=== PATIENT | male | born 1945 | race Caucasian/White ===

== ENCOUNTER 2017-09-07 06:06 | Day surgery (SDC) | payer MEDICARE ==
[2017-08-31 15:59] VITALS: BMI 29.3
[2017-09-07] MEDS ORDERED: ASPIRIN 325 MG TAB PO STA (06:15)
[2017-09-07] MEDS ORDERED: ATORVASTATIN 80 MG TAB PO STA (06:15)
[2017-09-07] MEDS ORDERED: ALPRAZolam 0.5 MG TAB PO PRN (06:15)
[2017-09-07] MEDS ORDERED: SODIUM CHLORIDE 0.9% 1,000 ML in EMPTY BAG 1 BAG IV ONE (06:15)
[2017-09-07] MEDS ORDERED: ALPRAZolam 0.25 MG TAB PO PRN (06:15)
[2017-09-07] MEDS ORDERED: NITROGLYCERIN SL TABS 0.4 MG TAB SUBLINGUAL PRN (06:15)
[2017-09-07 06:40] VITALS: TEMP 97.7
[2017-09-07] MEDS ORDERED: INSULIN LISPRO (humaLOG) 300 UNIT/3 ML VIAL SQ STA (06:50)
[2017-09-07 06:54] LABS: Glucose,Whole Blood 260 mg/dL (75-99)
[2017-09-07] MEDS ORDERED: diphenhydrAMINE 50 MG/ML 1 ML VIAL IVP ONE (07:18)
[2017-09-07] MEDS ORDERED: MIDAZOLAM 2 MG/2 ML VIAL IVP ONE (07:18)
[2017-09-07] MEDS ORDERED: LIDOCAINE 2% INJ 20 MG/ML SQ ONE (07:22)
[2017-09-07] MEDS: VERAPAMIL SYRINGE (5 MG/10 ML) INTRAARTER ONE ×3 (07:24→08:32)
[2017-09-07] MEDS ORDERED: HEPARIN SODIUM 1,000 UN/ML (10ML VL) IV ONE (07:25)
[2017-09-07] MEDS ORDERED: BIVALIRUDIN BOLUS 250 MG/50 ML IV ONE (07:53)
[2017-09-07] MEDS ORDERED: BIVALIRUDIN 250 MG in SODIUM CHLORIDE 0.9% 50 ML IV ONE (07:54)
[2017-09-07] MEDS ORDERED: IOHEXOL 350 MG/ML (PER ML) 100ML BTL INJ ONE (08:38)
[2017-09-07 10:46] VITALS: RESP 18
[2017-09-07] MEDS ORDERED: ACETAMINOPHEN TAB 325 MG TAB ONE (12:22)
[2017-09-07 15:09] VITALS: BP 141/75; PULSE 69
--- NOTE | 2017-09-07 21:55 | CC ---
CARDIAC CATHETERIZATION REPORT DATE OF SERVICE: 09/07/17. PROCEDURE: Left heart catheterization and coronary angiography. PERFORMED BY: Dr. Mandy Lyles. SEDATION: Moderate conscious sedation time 45 minutes. CLINICAL INFORMATION: Mr. Jimmy Young is a 71-year-old gentleman with a known history of paroxysmal atrial fibrillation. Tachy-palmira phenomena who has an underlying dual-chamber pacemaker. He has been having symptoms of angina and was seen by Dr. Montgomery. He also has underlying hypertension, hyperlipidemia, and type 2 diabetes mellitus. Because of his symptoms suggestive of angina, he was advised coronary angiography to look for progression of coronary disease. Stress test findings were somewhat equivocal, but the patient had symptoms suggestive of angina pectoris. PROCEDURE NOTE: Under local anesthesia and strict aseptic precautions, a 6-Malian introducer was placed in the right radial artery. 2500 units of heparin was given intravenously. Using an Ultimata 1 catheter I performed selective coronary angiography of the left system. I then used a JR4 3.5 catheter with this I performed selective coronary angiography of the RCA, but I had very difficult time seating the catheter in the right coronary artery. An LV pressures were also obtained, but I did not perform an LV-gram. CARDIAC CATHETERIZATION FINDINGS: Left end-diastolic pressure was 18-20 mmHg without any gradient across the aortic valve. CORONARY ANGIOGRAPHY FINDINGS: Right coronary artery: Technically dominant vessel has about 30% proximal narrowing. In the midportion after an acute marginal branch, there is an eccentric 80% narrowing after which the caliber improves in the vessel. Distally it bifurcates into PDA and PLV. The RCA therefore has a 70-80% lesion in the distal portion well before the bifurcation. This is a dominant RCA. Left main coronary artery: This is a long patent disease-free vessel that bifurcates into LAD and circumflex. Left main itself is free of significant disease. Left anterior descending coronary artery is a fair caliber vessel extends along the antral wall. It appears that there is a stented segment in the mid LAD. This was done more than 20 years ago. The diagonal branch is free of significant disease. The stented area is patent with no more than 35% narrowing. Distal portion of the LAD beyond the stented segment has diffuse disease throughout all the way to the apex and there is a subtotal area of narrowing in the distal apical portion of the LAD. Left posterior circumflex coronary artery: Technically nondominant vessel which is tortuous, comes off at a more than 90 degree angle from the left main and gives off a large obtuse marginal and then runs in the AV groove giving smaller post lateral branches. The obtuse marginal has an eccentric 80% narrowing and the circumflex marginal itself before the 90% stenosis has another 40% narrowing. The continuation of circumflex in the AV groove is free of significant disease. FINAL IMPRESSION: This patient has 70 to 80% distal RCA disease well before bifurcation and also 80% stenosis involving obtuse marginal branch of circumflex. LAD has a patent stent in the midportion with diffuse disease in the distal one fourth. Filling pressures are mildly elevated. RECOMMENDATIONS: I recommend intervention and attempted to perform this in the same setting. But patient received a substantial amount of contrast and I did not feel I should pursue the procedure. I had very difficult time getting a good guide support and with a JR4 catheter and a KRS catheter I was able to gain decent guide support, but once I advanced the wire, I was unable to keep the guide coaxial. So after some attempts without actually crossing the lesion, I abandoned with the understanding I will bring him back in the next week after checking his renal function and will do the procedure from the femoral approach. The findings of the cardiac cath were discussed in great detail with the patient and and I expect he will be discharged later this evening after adequate hydration. I will see him in the office in 48 hours. RICH / JULES: [id number] /
== END 2017-09-07 17:57 | disposition home or self-care (01) ==
LOC: CATHCVL 06:06
PROVIDERS: ATTEND Internal Medicine Interventional Cardiology
DX: I25.110 Atherosclerotic heart disease of native coronary artery with unstable angina pectoris (principal); I10 Essential (primary) hypertension; Z87.891 Personal history of nicotine dependence; I77.1 Stricture of artery; Z53.8 Procedure and treatment not carried out for other reasons; I35.1 Nonrheumatic aortic (valve) insufficiency; I49.5 Sick sinus syndrome; I48.0 Paroxysmal atrial fibrillation; Z79.01 Long term (current) use of anticoagulants; Z95.0 Presence of cardiac pacemaker; Z95.5 Presence of coronary angioplasty implant and graft; E78.5 Hyperlipidemia, unspecified; E11.9 Type 2 diabetes mellitus without complications; Z79.84 Long term (current) use of oral hypoglycemic drugs; Z79.899 Other long term (current) drug therapy
CPT/HCPCS: 93458; 92920; C1769; C1887 ×5; C1894; J2001; J2250; J1200; Q9967; J1644; J0583

== ENCOUNTER 2017-09-15 07:54 | Day surgery (SDC) | payer MEDICARE ==
[2017-09-14 09:51] VITALS: BMI 28.9
[2017-09-15] MEDS ORDERED: INSULIN ASPART 100 UNIT/ML 1 ML 10 ML VIAL SQ ONE (08:36)
[2017-09-15 08:43] LABS: Glucose,Whole Blood 317 mg/dL (75-99)
[2017-09-15] MEDS ORDERED: ASPIRIN 325 MG TAB PO STA (08:44)
[2017-09-15] MEDS ORDERED: SODIUM CHLORIDE 0.9% 1,000 ML in EMPTY BAG 1 BAG IV ONE (08:44)
[2017-09-15] MEDS ORDERED: NITROGLYCERIN SL TABS 0.4 MG TAB SUBLINGUAL PRN ×2 (08:44→11:19)
[2017-09-15 08:57] LABS: Basophils # (A) 0.1 k/uL (0-0.2); Basophils % (A) 1 %; CH 31.3; CHCM 34.8; Eosinophils # (A) 0.3 k/uL (0-0.7); Eosinophils % (A) 3 %; HCT 41.2 % (39.0-53.0); HDW 2.66; HGB 13.8 gm/dL (13.0-17.5); Luc # (Auto) 0.14; Luc % (Auto) 1; Lymphocytes # (A) 2.4 k/uL (1.0-4.8); Lymphocytes % (A) 24 %; MCH 30.3 pg (25.0-35.0); MCHC 33.6 g/dL (31.0-37.0); MCV 90.2 fL (80.0-100.0); Mean Platelet Volume 7.7; Monocytes # (A) 0.6 k/uL (0-1.0); Monocytes % (A) 6 %; Neutrophils # (A) 6.4 k/uL (1.3-7.7); Neutrophils % (A) 65 %; RBC 4.56 m/uL (4.30-5.90); RDW 13.8 % (11.5-15.5); WBC 9.9 k/uL (3.8-10.6); WBC (Perox) 9.76
[2017-09-15 08:59] LABS: Anion Gap 13 mmol/L; Blood Urea Nitrogen 17 mg/dL (9-20); Calcium 9.6 mg/dL (8.4-10.2); Carbon Dioxide 23 mmol/L (22-30); Chloride 103 mmol/L (98-107); Glucose 315 mg/dL (74-99); Non-African American GFR(MDRD) >60 (>60 ml/min/1.73 sqM); Potassium 4.6 mmol/L (3.5-5.1); Sodium 139 mmol/L (137-145)
[2017-09-15] MEDS ORDERED: MIDAZOLAM 2 MG/2 ML VIAL ONE (09:13)
[2017-09-15] MEDS ORDERED: diphenhydrAMINE 50 MG/ML 1 ML VIAL ONE (09:14)
[2017-09-15] MEDS ORDERED: LIDOCAINE 2% INJ 20 MG/ML (20 ML MDV) ONE (09:21)
[2017-09-15] MEDS ORDERED: diphenhydrAMINE 50 MG/ML 1 ML VIAL IVP ONE (09:34)
[2017-09-15] MEDS ORDERED: MIDAZOLAM 2 MG/2 ML VIAL IV ONE (09:34)
[2017-09-15] MEDS ORDERED: LIDOCAINE 2% INJ 20 MG/ML SQ ONE ×2 (09:34→09:35)
[2017-09-15] MEDS ORDERED: BIVALIRUDIN BOLUS 250 MG/50 ML IV ONE (09:56)
[2017-09-15] MEDS ORDERED: BIVALIRUDIN 250 MG in SODIUM CHLORIDE 0.9% 50 ML IV ONE (09:59)
[2017-09-15] MEDS ORDERED: NITROGLYCERIN 1000MCG/10ML SYRINGE INTRACORON ONE ×2 (10:13→10:15)
[2017-09-15] MEDS ORDERED: HYDROmorphone 2 MG/ML 1 ML SYRINGE ONE (10:44)
[2017-09-15] MEDS ORDERED: IOHEXOL 350 MG/ML 125ML BOTTLE INJ ONE (10:46)
[2017-09-15] MEDS ORDERED: HYDROmorphone 2 MG/ML 1 ML SYRINGE IV ONE (10:46)
[2017-09-15] MEDS ORDERED: CLOPIDOGREL 75 MG TAB ONE (10:51)
[2017-09-15] MEDS ORDERED: CLOPIDOGREL 75 MG TAB PO ONE (10:54)
[2017-09-15] MEDS ORDERED: RX INFO: IV CONTRAST WAS GIVEN 1 EACH MISC MISCELLANE PRN (11:19)
[2017-09-15] MEDS ORDERED: ZOLPIDEM 5 MG TAB PO PRN (11:19)
[2017-09-15] MEDS ORDERED: ATROPINE SULFATE 0.1 MG/ML 10ML SYRINGE IV PRN (11:19)
[2017-09-15] MEDS ORDERED: MAG HYDROX/AL HYDROX/SIMETH 30 ML CUP PO PRN (11:19)
--- NOTE | 2017-09-15 11:36 | PTCA ---
PERCUTANEOUSTRANS CORORONARY ANGIOGRAPHY DATE OF SERVICE: 09/15/2017. PROCEDURE: 1. PTCA and stenting off mid/distal RCA, heavily calcified lesion with a drug-eluting stent. 2. Moderate conscious sedation time of 76 minutes with intravenous Versed and Benadryl combination. Patient was monitored closely. CLINICAL INFORMATION: Mr. Jimmy Young is a 71-year-old gentleman with a known history of paroxysmal atrial fibrillation, sick sinus syndrome with a permanent pacemaker, who also has history of prior stenting of LAD performed several years ago. He sees Dr. Montgomery in the outpatient setting. Because of ongoing episodes of exertional chest pressure and shortness of breath, he was advised cardiac catheterization, which I performed last week and noted that he had an ectopic right coming from a very posterior location. There was a tight lesion in the mid-size distal RCA of about 80% to 90% heavily calcified. There was also a very tortuous circumflex coming off at 90 degree angle and this circumflex was a codominant vessel with obtuse marginal having also 80% to 90% lesion. I could not get a good guide support from the right radial approach and therefore, I advised patient to come back electively for a RCA PCI and if this went well, I would consider circumflex as well. Risks, benefits, options and rationale were discussed with the patient and family. I specifically spoke to his at length. PROCEDURE NOTE: Under local anesthesia and strict aseptic precautions, a 6-Danish introducer was placed in the right femoral artery. Initially, I tried a right Vickie catheter, then a AL1 catheter. Both of these very inadequate in giving me a decent guide support. Eventually with the AR 1 catheter, I got a fairly decent guide support. I used a run- through wire to cross the lesion. Wire was kept distally. A 2.25 caliber 12 mm long NC trek balloon was used to dilate the lesion at 12 to 13 atmospheres. I then deployed a 2.5 caliber 15 mm long Xience stent. There was moderate calcification. I deployed the stent at 12 atmospheres. Patient had did not have any significant chest pain or EKG changes. Excellent angiographic result was achieved without complication. He received Angiomax bolus and infusion as per protocol. He also received 600 mg of Plavix. I then attempted the circumflex PUMPER GAUGER as well. I used a standard left Vickie guide catheter and using a run-through wire and a Choice PT wire, I was able to cross the lesion, but I had difficulty bringing the balloon down because extreme tortuosity and calcification of the origin of the circumflex, which came off at a more than 90 degree angle from the left main. However, I explained to the patient that I will not persist the circumflex intervention and we will work with medical therapy for now and I will consider bringing him back if there is a significant area of ischemia. Therefore, I will pursue medical therapy and we had a good result of RCA. This was discussed with the patient and at length. The sheath was taken out and a Perclose device used to secure hemostasis. Because of some oozing, I am applying a FemoStop. I expect the patient to be discharged tomorrow if he remains stable. Excellent angiographic result of RCA was achieved. Circumflex is a more challenging vessel with tortuosity and heavy calcification. I will tackle this at a later time or pursue medical therapy. MMROGELIO / IJN: [id number] /
[2017-09-15] MEDS: SODIUM CHLORIDE 0.9% 1,000 ML IV SCH (12:05)
[2017-09-15 12:16] LABS: Glucose,Whole Blood 269 mg/dL (75-99)
[2017-09-15 16:47] LABS: Glucose,Whole Blood 263 mg/dL (75-99)
[2017-09-15] MEDS: SOTALOL 80 MG TAB PO SCH (20:44)
[2017-09-15] MEDS: glipiZIDE 10 MG TAB PO SCH (20:44)
[2017-09-15 21:03] LABS: Glucose,Whole Blood 254 mg/dL (75-99)
[2017-09-16] MEDS: SODIUM CHLORIDE 0.9% 1,000 ML IV SCH (02:27)
[2017-09-16 06:18] LABS: Glucose,Whole Blood 248 mg/dL (75-99)
[2017-09-16 06:41] LABS: Basophils % (A) 0 %; CH 31.5; CHCM 35.2; Eosinophils # (A) 0.2 k/uL (0-0.7); Eosinophils % (A) 2 %; HCT 38.6 % (39.0-53.0); HDW 2.89; Luc # (Auto) 0.24; Luc % (Auto) 3; Lymphocytes # (A) 1.8 k/uL (1.0-4.8); Lymphocytes % (A) 22 %; MCH 30.3 pg (25.0-35.0); MCHC 33.7 g/dL (31.0-37.0); MCV 89.9 fL (80.0-100.0); Mean Platelet Volume 6.4; Monocytes # (A) 0.5 k/uL (0-1.0); Monocytes % (A) 6 %; Neutrophils # (A) 5.5 k/uL (1.3-7.7); Neutrophils % (A) 66 %; RBC 4.29 m/uL (4.30-5.90); RDW 12.5 % (11.5-15.5); WBC 8.3 k/uL (3.8-10.6); WBC (Perox) 8.28
[2017-09-16 06:59] LABS: Anion Gap 9 mmol/L; Blood Urea Nitrogen 13 mg/dL (9-20); Calcium 9.1 mg/dL (8.4-10.2); Carbon Dioxide 23 mmol/L (22-30); Chloride 106 mmol/L (98-107); Glucose 248 mg/dL (74-99); Non-African American GFR(MDRD) >60 (>60 ml/min/1.73 sqM); Potassium 4.4 mmol/L (3.5-5.1); Sodium 138 mmol/L (137-145)
[2017-09-16] MEDS: glipiZIDE 10 MG TAB PO SCH (08:33)
[2017-09-16] MEDS: SOTALOL 80 MG TAB PO SCH (08:34)
[2017-09-16] MEDS ORDERED: PRAVASTATIN SODIUM 80 MG TAB PO SCH (09:00)
[2017-09-16] MEDS ORDERED: LOSARTAN 50 MG TAB PO SCH (09:00)
[2017-09-16] MEDS ORDERED: ASPIRIN 81 MG PO SCH (09:00)
[2017-09-16 09:20] VITALS: RESP 16
[2017-09-16 11:33] VITALS: BP 127/71; PULSE 60; TEMP 98
[2017-09-16] MEDS ORDERED: CLOPIDOGREL 75 MG TAB PO SCH (12:00)
[2017-09-16 12:10] LABS: Glucose,Whole Blood 265 mg/dL (75-99)
--- NOTE | 2017-09-16 21:10 | CONS ---
CONSULTATION Mr. Young underwent stenting of the mid distal RCA with a good result. I had noted that there was a plaque in the proximal circumflex which comes off at an acute angle and the OM has a tight lesion for which I am recommending medical therapy. He is doing well, asymptomatic. His right groin is clean and dry. Vital signs are stable. His labs are good. EKG is unremarkable. S1-S2 heard normally. Short systolic murmur noted. LUNGS: Clear. ABDOMEN, LOWER EXTREMITIES: Unchanged. Patient remains in sinus rhythm. PLAN: Increase activity and discharge him today. Discharge instructions regarding activity, diet, medications were given. He will see Dr. Montgomery in about a week or so and in 6 weeks, I would recommend we perform a stress Cardiolite scan and based on that, will consider revascularization of circumflex, which will be a challenging procedure, given the tortuosity and calcification. I discussed this with the patient and in detail. He will be discharged today. MMODL / IJN: [id number] /
== END 2017-09-16 15:01 | disposition home or self-care (01) ==
LOC: CATHCVL 07:54 → 6SEL 10:54 → CATHCVL 09-16 15:01
PROVIDERS: ATTEND Internal Medicine Interventional Cardiology
DX: I25.118 Atherosclerotic heart disease of native coronary artery with other forms of angina pectoris (principal); I25.84 Coronary atherosclerosis due to calcified coronary lesion; I10 Essential (primary) hypertension; Z87.891 Personal history of nicotine dependence; I77.1 Stricture of artery; I35.1 Nonrheumatic aortic (valve) insufficiency; I49.5 Sick sinus syndrome; Z95.5 Presence of coronary angioplasty implant and graft; E11.9 Type 2 diabetes mellitus without complications; Z79.84 Long term (current) use of oral hypoglycemic drugs; Z79.899 Other long term (current) drug therapy; Z79.01 Long term (current) use of anticoagulants
CPT/HCPCS: 80048 ×2; 85025 ×2; C9600; C1769 ×4; C1887 ×2; C1725 ×2; C1894; C1874; C1760; J2001; J2250; J1170; J1200; J0583; Q9967

== ENCOUNTER 2019-03-02 07:42 | Day surgery (SDC) | payer MEDICARE ==
[2019-02-27 15:06] VITALS: BMI 31.1
[~2019-03-02 07:42] MED LIST: SODIUM CHLORIDE 0.9% 1,000 ML IV SCH
[2019-03-02 08:58] VITALS: RESP 16; TEMP 97.5
[2019-03-02 09:09] LABS: Glucose,Whole Blood 139 mg/dL (75-99)
[2019-03-02 10:31] VITALS: BP 143/75; PULSE 72
--- NOTE | 2019-03-06 11:30 | P.PCN ---
Preoperative Diagnosis: Diagnosis Dizziness fatigues Twelve-lead ECG Atrial paced rhythm narrow QRS normal ST segments Tilt table test per protocol Baseline blood pressure 144/74 mmHg Baseline heart rate 59 beats a minute There was a slow gradual decline in his blood pressure. The lowest blood pressure recorded was 114/72 mmHg. When he is laid supine his blood pressure increased 230/72 mmHg Heart rates remained unchanged Impression Orthostatic hypotension syndrome This could be the cause of his ambulatory fatigue tiredness and dizziness Plan Reduce sotalol to 40 mg twice daily and perhaps discontinued completely in the future Stop Aldactone Avoid Imdur
== END 2019-03-02 11:06 | disposition home or self-care (01) ==
LOC: CATHEP 07:42
PROVIDERS: ATTEND Internal Medicine Clinical Cardiac Electrophysiology
DX: I95.1 Orthostatic hypotension (principal); E78.5 Hyperlipidemia, unspecified; I10 Essential (primary) hypertension; E11.9 Type 2 diabetes mellitus without complications; I48.0 Paroxysmal atrial fibrillation; I25.10 Atherosclerotic heart disease of native coronary artery without angina pectoris; Z72.0 Tobacco use; Z79.899 Other long term (current) drug therapy; Z95.0 Presence of cardiac pacemaker; Z79.01 Long term (current) use of anticoagulants; Z79.84 Long term (current) use of oral hypoglycemic drugs; Z79.02 Long term (current) use of antithrombotics/antiplatelets; Z95.5 Presence of coronary angioplasty implant and graft
CPT/HCPCS: 93660

== ENCOUNTER 2021-06-13 08:05 | Day surgery (SDC) | payer MEDICARE ==
[2021-06-12 08:49] VITALS: BMI 29.6
[2021-06-13] MEDS ORDERED: SODIUM CHLORIDE 0.9% 500 ML 500 ML IV ONE (08:20)
[2021-06-13 08:36] LABS: Glucose,Whole Blood 156 mg/dL (75-99)
[2021-06-13 08:43] VITALS: RESP 16; TEMP 98
[2021-06-13] MEDS ORDERED: fentaNYL (PF) 50 MCG/ML 2 ML AMP ONE (08:50)
[2021-06-13] MEDS: BENZOCAINE SPRAY 1 CAN MUCOUS MEM ONE ×2 (09:03→09:09)
[2021-06-13] MEDS ORDERED: fentaNYL (PF) 50 MCG/ML 2 ML AMP IVP ONE (09:14)
[2021-06-13] MEDS ORDERED: MIDAZOLAM 2 MG/2 ML VIAL IVP ONE (09:14)
[2021-06-13 11:08] VITALS: BP 107/66; PULSE 60
--- NOTE | 2021-06-13 21:44 | P.TEE ---
Description of Procedure(s): Procedure performed: Transesophageal Echocardiogram with color flow doppler, pulsed wave doppler and continuous wave doppler, moderate conscious sedation Moderate conscious sedation: Moderate conscious sedation was supplied with direct supervision of myself using Versed and Fentanyl. Complications: none Indications: Moderate aortic insufficiency, moderate to severe aortic stenosis History: Patient is a pleasant 75-year-old male with a history of coronary artery disease status post stenting of the RCA, sick sinus syndrome, status post permanent pacemaker, paroxysmal atrial fibrillation, hypertension, moderate to severe aortic stenosis. Patient has been having issues with increased dyspnea on exertion and decrease in exercise tolerance. He did have most recent echocardiogram 05/23/2021 which showed mild to moderate mitral regurgitation, moderate aortic regurgitation, ejection fraction 55% and concern of at least mo derate aortic stenosis if not more. Patient has been having increasing A. fib burden and given symptoms, the concern was that of his aortic stenosis, aortic regurgitation was more severe and symptomatic. PROCEDURE: After the risks, benefits and alternatives of the above mentioned procedure was explained in detail with the patient, informed consent was obtained. Patient was brought to the lab in a fasting state. Patient was given IV Versed and Fentanyl for sedation. The throat was sprayed with Hurricane to anesthetize the throat. A lubricated Omni probe was then introduced into the esophagus and stomach and multiple views were obtained. 2D echo with color flow doppler, pulsed wave doppler and continuous wave doppler was utilized. Agitated saline bubbles were injected to assess for any intra-atrial shunt. The probe was then removed. Patient tolerated the procedure well. Patient was transferred to the post procedure area in stable and satisfactory condition. FINDINGS: 1. The aortic valve is tricuspid and moderately sclerotic with decreased leaflet excursion. There is moderate aortic stenosis with LUCAS 1.6cm2. There is mild to moderate aortic insufficiency. 2. The mitral valve appears be normal with mild to moderate mitral regurgitation. 3. Tricuspid valve appears to be normal. 4. The interatrial septum is intact. No evidence of PFO. 5. Left atrial appendage is free of clot. 6. Left ventricular size is normal. Left ventricular EF is 50%.
== END 2021-06-13 11:28 | disposition home or self-care (01) ==
LOC: CATHCVL 08:05
PROVIDERS: ATTEND Internal Medicine
DX: I25.10 Atherosclerotic heart disease of native coronary artery without angina pectoris (principal)
CPT/HCPCS: 93312; 93320; 93325; J2250; J3010

== ENCOUNTER 2024-12-25 11:08 | Inpatient (IN) | payer MEDICARE ==
[2024-12-25] MEDS ORDERED: VANCOMYCIN IV PER PHARMACY 1 EACH MISC MISCELLANE PRN (11:37)
[2024-12-25] MEDS: SODIUM CHLORIDE 0.9% 1,000 ML IV STA (11:40)
[2024-12-25] MEDS: LACTATED RINGERS 1,000 ML IV ONE (11:50)
[2024-12-25 12:04] LABS: Basophils % (A) 0 %; Eosinophils % (A) 0 %; HCT 35.9 % (39.0-53.0); HGB 10.9 gm/dL (13.0-17.5); Hypochromasia Slight; Lymphocytes % (A) 7 %; MCHC 30.4 g/dL (31.0-37.0); Mean Platelet Volume 7.6; Monocytes # (A) 0.4 k/uL (0-1.0); Monocytes % (A) 3 %; Neutrophils # (A) 12.7 k/uL (1.3-7.7); Neutrophils % (A) 89 %; Platelet Count 369 k/uL (150-450); RBC 4.03 m/uL (4.30-5.90); RDW 15.8 % (11.5-15.5); WBC 14.2 k/uL (3.8-10.6)
[2024-12-25 12:12] LABS: INR 1.5 (<1.2); Partial Thromboplastin Time 34.6 sec (22.0-30.0); Prothrombin Time 15.2 sec (10.0-12.5)
[2024-12-25] MEDS: IPRATROPIUM-ALBUTEROL 3 ML NEB INHALATION STA (12:18)
[2024-12-25 12:21] LABS: ALT 12 U/L (4-49); AST 21 U/L (17-59); African American GFR (CKD) 45 (>60 ml/min/1.73 sqM); Albumin 3.1 g/dL (3.5-5.0); Alkaline Phosphatase 65 U/L (38-126); Anion Gap 20 mmol/L; Blood Urea Nitrogen 68 mg/dL (9-20); Calcium 7.9 mg/dL (8.4-10.2); Carbon Dioxide 17 mmol/L (22-30); Chloride 104 mmol/L (98-107); Glucose 138 mg/dL (74-99); Magnesium 1.5 mg/dL (1.6-2.3); Non-African American GFR(CKD) 39 (>60 ml/min/1.73 sqM); Potassium 3.7 mmol/L (3.5-5.1); Sodium 141 mmol/L (137-145); Total Bilirubin 0.9 mg/dL (0.2-1.3); Total Protein 5.5 g/dL (6.3-8.2)
[2024-12-25 12:28] LABS: NT-Pro-B-Type Natriuretic Pept 4230 pg/mL
[2024-12-25] MEDS: MAGNESIUM SULFATE-D5W PMX 1 GM in DEXTROSE/WATER 1 100ML.BAG IVPB ONE (13:14)
[2024-12-25] MEDS ORDERED: NALOXONE 0.4 MG/ML 1 ML VIAL IV PRN (13:23)
[2024-12-25 14:02] LABS: ABG Base Excess -5.1 mmol/L; ABG HCO3 18 mmol/L (21-25); ABG Oxygen Saturation 91.9 % (94-97); ABG PCO2 29 mmHg (35-45); ABG PH 7.41 (7.35-7.45); ABG PO2 66 mmHg (83-108); ABG TCO2 19 mmol/L (19-24); Allen Test Performed? Yes
--- NOTE | 2024-12-25 14:19 | XR ---
EXAMINATION TYPE: XR chest 1V portable DATE OF EXAM: 12/25/2024 1:42 PM COMPARISON: 04/18/2015 CLINICAL INDICATION: Male, 79 years old with history of dyspnea, TECHNIQUE: XR chest 1V portable view(s) obtained. FINDINGS: The heart size is normal. The pulmonary vasculature is normal. Right pleural effusion is present. Small left pleural effusion may be present. Port is present on the right with the tip in the superior vena cava region. Pacemaker overlies left c hest. IMPRESSION: 1. Bilateral pleural effusions. [facility], , 12/25/2024 2:17 PM
[2024-12-25] MEDS ORDERED: DEXTROSE 50% SYRINGE 50 ML IVP PRN ×2 (14:25)
[2024-12-25] MEDS: ASPIRIN 81 MG PO STA (14:47)
--- NOTE | 2024-12-25 15:42 | ED ---
General Adult HPI - General Chief complaint: Shortness of Breath Stated complaint: SOB Time Seen by Provider: 12/25/24 11:37 Source: patient, EMS, RN notes reviewed, old records reviewed Mode of arrival: EMS - History of Present Illness Initial comments: Patient is an 79-year-old male who presents as a transfer from another facility. Patient was transferred from [facility] for septic pneumonia, NURIA, hypoxic respiratory failure requiring BiPAP. Has a history of atrial fibrillation on Xarelto, diabetes, hypertension, hyperlipidemia. Patient received multiple fluid boluses at the outside facility as well. Had been complaining of worsening cough, congestion, shortness of breath for numerous days. Apparently is also full code. Normally is not on any oxygen. Presents for further evaluation at this time. Patient initiated on broad-spectrum antibiotics prior to transfer, as well as 2 L fluid bolus, presents for further evaluation at this time. States he is feeling improved.Denies orthopnea, paroxysmal nocturnal dyspnea, lower extremity swelling. - Related Data Home Medications Medication Instructions Recorded Confirmed Furosemide [Lasix] 20 mg PO DAILY 02/27/19 12/25/24 Pioglitazone HCl [Actos] 15 mg PO DAILY 02/27/19 12/25/24 Rivaroxaban [Xarelto] 15 mg PO HS 02/27/19 12/25/24 Acetaminophen [Tylenol] 650 mg PO Q4H PRN 12/25/24 12/25/24 Ascorbic Acid [Vitamin C] 500 mg PO DAILY 12/25/24 12/25/24 Atorvastatin [Lipitor] 40 mg PO HS 12/25/24 12/25/24 Escitalopram [Lexapro] 10 mg PO DAILY 12/25/24 12/25/24 Ferrous Sulfate [Feosol] 325 mg PO DAILY 12/25/24 12/25/24 Finasteride [Proscar] 5 mg PO DAILY 12/25/24 12/25/24 Losartan [Cozaar] 25 mg PO DAILY 12/25/24 12/25/24 Methenamine Hippurate [Hiprex] 1 gm PO BID 12/25/24 12/25/24 Muscle Rub External Cream 10-15% 1 applic TOPICAL Q6H PRN 12/25/24 12/25/24 Ranolazine [Ranexa] 500 mg PO BID 12/25/24 12/25/24 Tamsulosin [Flomax] 0.4 mg PO DAILY 12/25/24 12/25/24 bisacodyL [Dulcolax] 10 mg PO DAILY PRN 12/25/24 12/25/24 metFORMIN HCL [Glucophage] 500 mg PO TID 12/25/24 12/25/24 Allergies Allergy/AdvReac Type Severity Reaction Status Date / Time No Known Allergies Allergy Verified 12/25/24 13:18 Review of Systems ROS Statement: Those systems with pertinent positive or pertinent negative responses have been documented in the HPI. Review of Systems: CONST: Denies fever EYES: Denies blurry vision ENT: Denies nasal congestion C/V: Denies Chest pain RESP: Endorses shortness of breath, cough, congestion GI: Denies abdominal pain : Denies dysuria SKIN: Denies rash. MSK: Denies joint pain. NEURO: Denies headache ROS Other: All systems not noted in ROS Statement are negative. Past Medical History Past Medical History: Atrial Fibrillation, Coronary Artery Disease (CAD), Cancer, Diabetes Mellitus, Hyperlipidemia, Hypertension Additional Past Medical History / Comment(s): See Dr Ybarra's H&P. 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 History of Any Multi-Drug Resistant Organisms: None Reported Past Surgical History: Heart Catheterization, Heart Catheterization With Stent, Orthopedic Surgery, Prostate Surgery Additional Past Surgical History / Comment(s): Right shoulder surgery, bilateral cataracts removed, TURP, TREMAINE. Past Anesthesia/Blood Transfusion Reactions: Previous Problems w/ Anesthesia Additional Past Anesthesia/Blood Transfusion Reaction / Comment(s): Difficulty waking up after prostate surgery-"TOOK LONGER TO WAKE UP." Date of Last Stent Placement:: Past Psychological History: No Psychological Hx Reported Smoking Status: Former smoker Past Alcohol Use History: None Reported Past Drug Use History: None Reported - Past Family History Mother Family Medical History: No Reported History Father Family Medical History: Coronary Artery Disease (CAD) General Exam - General Exam Comments Initial Comments: General: Appears in no acute distress. HEAD: Normal with no signs of head trauma. EYES: EOMI ENT: Hearing grossly intact, normal oropharynx. RESPIRATORY: Coarse breath sounds bilaterally. Mildly increased work of breathing. Requiring BiPAP to maintain oxygenation. C/V: Irregular rate and rhythm. S1 and S2 auscultated, no edema, peripheral pulses 2+ and intact throughout ABD: Abd is soft, nontender, nondistended EXT: Normal range of motion, no obvious deformity SKIN: No rashes or lesions observed on exposed skin. NEURO: Alert and oriented x 4. Course Vital Signs 12/25/24 12/25/24 12/25/24 11:08 11:19 12:00 Temperature 97.7 F Pulse Rate 93 103 H Respiratory 27 H 30 H Rate Blood Pressure 116/70 116/71 O2 Sat by Pulse 98 94 L Oximetry Fraction of 60 Inspired Oxygen (FIO2) 12/25/24 12/25/24 12/25/24 12:18 12:32 14:07 Temperature Pulse Rate 112 H 110 H Respiratory Rate Blood Pressure O2 Sat by Pulse Oximetry Fraction of 50 60 Inspired Oxygen (FIO2) 12/25/24 14:30 Temperature Pulse Rate 98 Respiratory 30 H Rate Blood Pressure 111/64 O2 Sat by Pulse 97 Oximetry Fraction of Inspired Oxygen (FIO2) Medical Decision Making - Medical Decision Making Was pt. sent in by a medical professional or institution (, PA, [employer], urgent care, hospital, or chcf...) When possible be specific @ -Transferred from [facility] for admission for hypoxic respiratory failure, secondary to septic pneumonia Did you speak to anyone other than the patient for history (EMS, parent, family, police, friend...)? What history was obtained from this source @ -No Did you review nursing and triage notes (agree or disagree)? Why? @ -I reviewed and agree with nursing and triage notes Were old charts reviewed (outside hosp., previous admission, EMS record, old EKG , old radiological studies, urgent care reports/EKG's, [facility] records)? Report findings @ -[facility], pneumonia with pleural effusions, hypoxic respiratory failure with 80% on room air requiring BiPAP, as well as elevated lactic acid of 5.0. Patient initially on vancomycin and cefepime. Differential Diagnosis (chest pain, altered mental status, abdominal pain women, abdominal pain men, vaginal bleeding, weakness, fever, dyspnea, syncope, headache, dizziness, GI bleed, back pain, seizure, CVA, palpatations, mental health, musculoskeletal)? @ -Differential Dyspnea: Coronary syndrome, arrhythmia, tamponade, asthma, COPD, pulmonary embolism, pneumonia, pneumothorax, pulmonary effusion, anaphylaxis, diabetic ketoacidosis, flailed chest, pulmonary contusion, diaphragmatic rupture, anemia, neuromuscular, this is not meant to be an all-inclusive list. EKG interpreted by me (3pts min.). @ -As above X-rays interpreted by me (1pt min.). @ -Chest x-ray reveals what appears to be possible bilateral pneumonia versus pulm vascular congestion with pleural effusions. Radiology at outside facility read it as bilateral pneumonia with parapneumonic pleural effusion CT interpreted by me (1pt min.). @ -None done U/S interpreted by me (1pt. min.). @ -None done What testing was considered but not performed or refused? (CT, X-rays, U/S, labs)? Why? @ -None What meds were considered but not given or refused? Why? @ -None Did you discuss the management of the patient with other professionals (beata yeboah i.e. , PA, [employer], lab, RT, psych nurse, social media editor, probation counselor, teacher, security officers and guards, outpatient case manager)? Give summary @ -Discussed with ICU attending, Dr. Skinner who accepted the admission. Disc ussed with the admitting provider, Dr. Otto who accepted the admission. Was smoking cessation discussed for >3mins.? @ -No Was critical care preformed (if so, how long)? @ -Yes, 33 minutes Were there social determinants of health that impacted care today? How? (Homelessness, low income, unemployed, alcoholism, drug addiction, transportation, low edu. Level, literacy, decrease access to med. care, [facility], rehab)? @ -No Was there de-escalation of care discussed even if they declined (Discuss DNR or withdrawal of care, Hospice)? DNR status @ -No What co-morbidities impacted this encounter? (DM, HTN, Smoking, COPD, CAD, Cancer, CVA, ARF, Chemo, Hep., AIDS, mental health diagnosis, sleep apnea, morbid obesity)? @ -Atrial fibrillation Was patient admitted / discharged? Hospital course, mention meds given and route, prescriptions, significant lab abnormalities, going to OR and other pertinent info. @ -Patient presents emergency department with hypoxic respiratory failure secondary to septic pneumonia, NURIA, lactic acidosis of 5. Initiated on vancomycin and cefepime and BiPAP at outside hospital. Presents for admission to our hospital. Patient is doing well on BiPAP. Mild increased work of breathing. Stable A-fib. Vitals otherwise within acceptable limits. We will obtain repeat labs, upload the chest x-ray, as well as obtain repeat chest x-ray and ABG per pulmonology. He was in agreement this plan. Seems to be more infectious as patient had more of a cough, congestion presentation and less of a progressive clinical presentation of CHF after discussion with him. Will c ontinue to monitor. Patient initiated on IV fluids, as well as started on broad-spectrum antibiotics that were already initiated. Patient administered a breathing treatment. Patient was in agreement this plan. EKG showed no signs of acute ischemia. Chest x-ray redemonstrates previous findings. Laboratory studies show leukocytosis of 14, a lactic acid improved from 5-3.9, as well as an elevated troponin 0.096. Patient administered aspirin. BNP is elevated to 4200. Patient also has an NURIA with a BUN of 68 and creatinine of 1.64. I discussed results with patient. He will be admitted. Discussed results with ICU attending Dr. Skinner who accepted the patient to ICU. Discussed with Dr. Otto of [facility] who accepted the admission. Pneumonia versus CHF likely causing the hypoxic respiratory failure, however clinically seems to be more pneumonia after discussion with the patient. Undiagnosed new problem with uncertain prognosis? @ -No Drug Therapy requiring intensive monitoring for toxicity (Heparin, Nitro, Insulin, Cardizem)? @ -No Were any procedures done? @ -No Diagnosis/symptom? @ -Hypoxic respiratory failure secondary to pneumonia versus CHF, dehydration with NURIA, elevated troponin, atrial fibrillation Acute, or Chronic, or Acute on Chronic? @ -Acute Uncomplicated (without systemic symptoms) or Complicated (systemic symptoms)? @ -Complicated Side effects of treatment? @ -No Exacerbation, Progression, or Severe Exacerbation? @ -No Poses a threat to life or bodily function? How? (Chest pain, USA, NH, pneumonia, PE, COPD, DKA, ARF, appy, cholecystitis, CVA, Diverticulitis, Homicidal, Suicidal, threat to staff... and all critical care pts) @ -Yes - Lab Data Result diagrams: 12/25/24 11:42 12/25/24 11:42 Lab Results 02/24/25 02/24/25 02/24/25 Range/Units 11:42 11:42 11:42 WBC 14.2 H (3.8-10.6) k/uL RBC 4.03 L (4.30-5.90) m/uL Hgb 10.9 L (13.0-17.5) gm/dL Hct 35.9 L (39.0-53.0) % MCV 89.0 (80.0-100.0) fL MCH 27.0 (25.0-35.0) pg MCHC 30.4 L (31.0-37.0) g/dL RDW 15.8 H (11.5-15.5) % Plt Count 369 (150-450) k/uL MPV 7.6 Neutrophils % 89 % Lymphocytes % 7 % Monocytes % 3 % Eosinophils % 0 % Basophils % 0 % Neutrophils # 12.7 H (1.3-7.7) k/uL Lymphocytes # 1.0 (1.0-4.8) k/uL Monocytes # 0.4 (0-1.0) k/uL Eosinophils # 0.0 (0-0.7) k/uL Basophils # 0.0 (0-0.2) k/uL Hypochromasia Slight PT 15.2 H (10.0-12.5) sec INR 1.5 H (<1.2) APTT 34.6 H (22.0-30.0) sec Sodium 141 (137-145) mmol/L Potassium 3.7 (3.5-5.1) mmol/L Chloride 104 (98-107) mmol/L Carbon Dioxide 17 L (22-30) mmol/L Anion Gap 20 mmol/L BUN 68 H (9-20) mg/dL Creatinine 1.64 H (0.66-1.25) mg/dL Est GFR (CKD-EPI)AfAm 45 (>60 ml/min/1.73 sqM) Est GFR (CKD-EPI)NonAf 39 (>60 ml/min/1.73 sqM) Glucose 138 H (74-99) mg/dL Lactic Ac Sepsis Rflx Plasma Lactic Acid Mumtaz (0.7-2.0) mmol/L Calcium 7.9 L (8.4-10.2) mg/dL Magnesium 1.5 L (1.6-2.3) mg/dL Total Bilirubin 0.9 (0.2-1.3) mg/dL AST 21 (17-59) U/L ALT 12 (4-49) U/L Alkaline Phosphatase 65 (38-126) U/L Troponin I (0.000-0.034) ng/mL NT-Pro-B Natriuret Pep 4230 pg/mL Total Protein 5.5 L (6.3-8.2) g/dL Albumin 3.1 L (3.5-5.0) g/dL 12/25/24 12/25/24 12/25/24 Range/Units 11:42 11:42 12:27 WBC (3.8-10.6) k/uL RBC (4.30-5.90) m/uL Hgb (13.0-17.5) gm/dL Hct (39.0-53.0) % MCV (80.0-100.0) fL MCH (25.0-35.0) pg MCHC (31.0-37.0) g/dL RDW (11.5-15.5) % Plt Count (150-450) k/uL MPV Neutrophils % % Lymphocytes % % Monocytes % % Eosinophils % % Basophils % % Neutrophils # (1.3-7.7) k/uL Lymphocytes # (1.0-4.8) k/uL Monocytes # (0-1.0) k/uL Eosinophils # (0-0.7) k/uL Basophils # (0-0.2) k/uL Hypochromasia PT (10.0-12.5) sec INR (<1.2) APTT (22.0-30.0) sec Sodium (137-145) mmol/L Potassium (3.5-5.1) mmol/L Chloride (98-107) mmol/L Carbon Dioxide (22-30) mmol/L Anion Gap mmol/L BUN (9-20) mg/dL Creatinine (0.66-1.25) mg/dL Est GFR (CKD-EPI)AfAm (>60 ml/min/1.73 sqM) Est GFR (CKD-EPI)NonAf (>60 ml/min/1.73 sqM) Glucose (74-99) mg/dL Lactic Ac Sepsis Rflx Y Plasma Lactic Acid Mumtaz 3.9 H* (0.7-2.0) mmol/L Calcium (8.4-10.2) mg/dL Magnesium (1.6-2.3) mg/dL Total Bilirubin (0.2-1.3) mg/dL AST (17-59) U/L ALT (4-49) U/L Alkaline Phosphatase (38-126) U/L Troponin I 0.096 H* (0.000-0.034) ng/mL NT-Pro-B Natriuret Pep pg/mL Total Protein (6.3-8.2) g/dL Albumin (3.5-5.0) g/dL - EKG Data -: EKG Interpreted by Me EKG Comments: 12-lead Electrocardiogram Interpretation Note EKG was reviewed and interpreted by myself. 12-lead ECG performed at 1120 is interpreted by me as revealing A-fib with mild RVR at a rate of 103 beats per minute. [place] is normal. QRS durations 120 ms, QTc is 449 ms.. There were no ST or T wave abnormalities to suggest myocardial ischemia or injury. R wave progression across the precordium was satisfactory. By my interpretation this EKG is non-diagnostic for acute ischemia. Critical Care Time Critical Care Time: Yes Total Critical Care Time: 33 Disposition Clinical Impression: Hypoxic respiratory failure, Congestive heart failure, Pneumonia, Pleural effusion, NURIA (acute kidney injury), Elevated troponin, BiPAP (biphasic positive airway pressure) dependence Disposition: ADMITTED IP TO THIS [facility] Condition: Serious Time of Disposition: 13:23
[2024-12-25 17:06] LABS: Glucose,Whole Blood 162 mg/dL (70-110)
[2024-12-25] MEDS: INSULIN LISPRO (HumaLOG) 100 UNIT/ML 10 mL VL SQ SCH (17:09)
[2024-12-25] MEDS: FUROSEMIDE 10 MG/ML 2 ML VIAL IV SCH (17:12)
--- NOTE | 2024-12-25 17:14 | US ---
EXAMINATION TYPE: US chest DATE OF EXAM: 12/25/2024 COMPARISON: Chest radiograph 12/25/2024 CLINICAL INDICATION: Male, 79 years old with history of Markings for thoracentesis by pulmonary staff ; SOB, bilat effusions TECHNIQUE: Grayscale imaging of the chest. Targeted ultrasound of the posterior lower bilateral FINDINGS: EXAM MEASUREMENTS: Right Pleural Effusion pocket size: 13.1 cm Right skin surface to fluid distance: 3.2 cm Left Pleural Effusion pocket size: 2.6 cm Right side marked for possible thoracentesis outside the dept. Left side NOT marked Pulmonologists are able to review the images in the patient?s EMR. IMPRESSIONS: 1. Moderate right pleural effusion. 2. Small left pleural effusion. [facility], , 12/25/2024 5:11 PM
--- NOTE | 2024-12-25 17:17 | P.CNPUL ---
History of Present Illness Consult date: 12/25/24 Requesting physician: Shin E Sheet Reason for consult: dyspnea, pleural effusion Chief complaint: Shortness of breath History of present illness: This is an 79year-old white male with history of multiple medical problems including diabetes, coronary artery disease, history of congestive heart f ailure, dyslipidemia, patient was transferred today from [facility] for possible pneumonia and sepsis. Patient presented to the ER with shortness of breath, abnormal chest x-ray showing bilateral pleural effusions patient was noted to have low blood pressure upon his initial evaluation, patient was given fluid boluses at the [facility] facility, and he was transferred here more fluids were given. I saw the patient in the ER, patient is on BiPAP, 10/05, patient is already feeling comfortable, he is hemodynamically stable, and I felt that the patient could be admitted to the cardiac floor instead of sending the patient to the ICU. Patient is already receiving broad-spectrum antibiotics, and again his chest x-ray is more suggestive of pulmonary edema underlying pneumonia is not entirely ruled out. History rm, the patient is a very poor historian, not much could be obtained from the patient himself as he seems to be confused. Looking at the chart patient already received 2 to 3 L of fluid boluses prior to my evaluation. CBC showed leukocytosis with WBC count is 14.2 hemoglobin 10.9 patient had an ABG on 50% FiO2 and BiPAP. pO2 of 66 pCO2 29 pH of 7.41. Ultrasound of the chest showed bilateral pleural effusions may have to consider diagnostic and therapeutic thoracentesis however the patient has been on Xarelto which is presently on hold. Electrolytes showed bicarb of 17 BUN of 68 creatinine 1.64 however no baseline creatinine available on this patient. In 2020, there is a report on the transesophageal echocardiogram showing mostly moderate sclerotic and decreased leaflet excursion of the aortic valve, there was also evidence of mild to moderate mitral regurgitation and his ejection fraction at the time was noted to be 50%. In the cardiology note, there is history of coronary artery disease and previous stenting of RCA history of sick sinus syndrome and permanent. Permanent pacemaker placement, he has paroxysmal atrial fibrillation hypertension and moderate severe aortic stenosis. Review of Systems ROS unobtainable: due to mental status Past Medical History Past Medical History: Atrial Fibrillation, Coronary Artery Disease (CAD), Cancer, Diabetes Mellitus, Hyperlipidemia, Hypertension Additional Past Medical History / Comment(s): See Dr Ybarra's H&P. 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 History of Any Multi-Drug Resistant Organisms: None Reported Past Surgical History: Heart Catheterization, Heart Catheterization With Stent, Orthopedic Surgery, Prostate Surgery Additional Past Surgical History / Comment(s): Right shoulder surgery, bilateral cataracts removed, TURP, TREMAINE. Past Anesthesia/Blood Transfusion Reactions: Previous Problems w/ Anesthesia Additional Past Anesthesia/Blood Transfusion Reaction / Comment(s): Difficulty waking up after prostate surgery-"TOOK LONGER TO WAKE UP." Date of Last Stent Placement:: Past Psychological History: No Psychological Hx Reported Smoking Status: Former smoker Past Alcohol Use History: None Reported Past Drug Use History: None Reported - Past Family History Mother Family Medical History: No Reported History Father Family Medical History: Coronary Artery Disease (CAD) Medications and Allergies Home Medications Medication Instructions Recorded Confirmed Type Furosemide [Lasix] 20 mg PO DAILY 02/27/19 12/25/24 History Pioglitazone HCl [Actos] 15 mg PO DAILY 02/27/19 12/25/24 History Rivaroxaban [Xarelto] 15 mg PO HS 02/27/19 12/25/24 History Acetaminophen [Tylenol] 650 mg PO Q4H PRN 12/25/24 12/25/24 History Ascorbic Acid [Vitamin C] 500 mg PO DAILY 12/25/24 12/25/24 History Atorvastatin [Lipitor] 40 mg PO HS 12/25/24 12/25/24 History Escitalopram [Lexapro] 10 mg PO DAILY 12/25/24 12/25/24 History Ferrous Sulfate [Feosol] 325 mg PO DAILY 12/25/24 12/25/24 History Finasteride [Proscar] 5 mg PO DAILY 12/25/24 12/25/24 History Losartan [Cozaar] 25 mg PO DAILY 12/25/24 12/25/24 History Methenamine Hippurate [Hiprex] 1 gm PO BID 12/25/24 12/25/24 History Muscle Rub External Cream 10-15% 1 applic TOPICAL Q6H PRN 12/25/24 12/25/24 History Ranolazine [Ranexa] 500 mg PO BID 12/25/24 12/25/24 History Tamsulosin [Flomax] 0.4 mg PO DAILY 12/25/24 12/25/24 History bisacodyL [Dulcolax] 10 mg PO DAILY PRN 12/25/24 12/25/24 History metFORMIN HCL [Glucophage] 500 mg PO TID 12/25/24 12/25/24 History Allergies Allergy/AdvReac Type Severity Reaction Status Date / Time No Known Allergies Allergy Verified 12/25/24 13:18 Physical Exam Vitals: Vital Signs Temp Pulse Resp BP Pulse Ox FiO2 12/25/24 16:03 60 12/25/24 15:30 101 H 28 H 110/63 96 12/25/24 14:30 98 30 H 111/64 97 12/25/24 14:07 60 12/25/24 12:32 110 H 12/25/24 12:18 112 H 50 12/25/24 12:00 103 H 30 H 116/71 94 L 12/25/24 11:19 60 12/25/24 11:08 97.7 F 93 27 H 116/70 98 Intake and Output 12/25/24 12/25/24 12/25/24 06:59 14:59 22:59 Other: Weight 81.647 kg General: Revealed 79-year-old HEAD: Normal with no signs of head trauma. EYES: EOMI ENT: Hearing grossly intact, normal oropharynx. RESPIRATORY: Coarse breath sounds bilaterally. Mildly increased work of breathing. Requiring BiPAP to maintain oxygenation. C/V: Irregular rate and rhythm. S1 and S2 auscultated, no edema, peripheral pulses 2+ and intact throughout ABD: Abd is soft, nontender, nondistended EXT: Normal range of motion, no obvious deformity SKIN: No rashes or lesions observed on exposed skin. NEURO: Alert and oriented x 4. Results - Laboratory Findings CBC and BMP: 12/25/24 11:42 12/25/24 11:42 ABG ABG pH 7.41 (7.35-7.45) 12/25/24 13:56 ABG pCO2 29 mmHg (35-45) L 12/25/24 13:56 ABG pO2 66 mmHg (83-108) L 12/25/24 13:56 ABG O2 Saturation 91.9 % (94-97) L 12/25/24 13:56 PT/INR, D-dimer PT 15.2 sec (10.0-12.5) H 12/25/24 11:42 INR 1.5 (<1.2) H 12/25/24 11:42 Abnormal lab findings: Abnormal Labs 12/25/24 12/25/24 12/25/24 11:42 11:42 11:42 WBC 14.2 H RBC 4.03 L Hgb 10.9 L Hct 35.9 L MCHC 30.4 L RDW 15.8 H Neutrophils # 12.7 H PT 15.2 H INR 1.5 H APTT 34.6 H ABG pCO2 ABG pO2 ABG HCO3 ABG O2 Saturation Hemoglobin Carbon Dioxide 17 L BUN 68 H Creatinine 1.64 H Glucose 138 H POC Glucose (mg/dL) Plasma Lactic Acid Mumtaz Calcium 7.9 L Magnesium 1.5 L Troponin I Total Protein 5.5 L Albumin 3.1 L 12/25/24 12/25/24 12/25/24 11:42 11:42 13:56 WBC RBC Hgb Hct MCHC RDW Neutrophils # PT INR APTT ABG pCO2 29 L ABG pO2 66 L ABG HCO3 18 L ABG O2 Saturation 91.9 L Hemoglobin 11.0 L Carbon Dioxide BUN Creatinine Glucose POC Glucose (mg/dL) Plasma Lactic Acid Mumtaz 3.9 H* Calcium Magnesium Troponin I 0.096 H* Total Protein Albumin 12/25/24 12/25/24 14:28 17:04 WBC RBC Hgb Hct MCHC RDW Neutrophils # PT INR APTT ABG pCO2 ABG pO2 ABG HCO3 ABG O2 Saturation Hemoglobin Carbon Dioxide BUN Creatinine Glucose POC Glucose (mg/dL) 162 H Plasma Lactic Acid Mumtaz 2.9 H* Calcium Magnesium Troponin I Total Protein Albumin - Diagnostic Findings Chest x-ray: image reviewed (Bilateral pleural effusions, underlying pneumonia is not entirely ruled out,) Assessment and Plan Assessment: Impression: Acute hypoxic respiratory failure Bilateral pleural effusions, suspect acute congestive heart failure, likely diastolic in nature Possible pneumonia and sepsis, looking at the chest x-ray is more suggestive of congestive heart failure than pneumonia, will likely recommend right-sided thoracentesis/diagnostic and therapeutic at the same time. History of valvular heart disease/ aortic stenosis, and history of mitral regurgitation History of coronary artery disease and previous stent placement History of sick sinus syndrome Chronic atrial fibrillation Recommendation: Continue BiPAP and titrate accordingly Admit patient to cardiac floor/telemetry Cut down on fluids Gentle diuresis Continue antibiotics empirically, check procalcitonin and check BNP level Resume home meds Echocardiogram with Doppler Cardiology to see on consultation Hold Johana as I may proceed with thoracentesis tomorrow Will continue to follow Time with Patient: Greater than 30
--- NOTE | 2024-12-25 17:37 | CA ---
Transthoracic Echo Report Name: Jimmy Young Age: 79 Gender: M : 1945 Exam Date: 12/25/2024 14:54 Exam Location: [facility] Echo Ht (in): 69 Wt (lb): 180 Ordering Physician: hCris Castillo MD Attending/Referring Phys: Analysis Mgr Lilo Alvarado RDCS Procedure CPT: Indications: dyspnea, elevated troponin Cardiac Hx: Pacemaker , htn Technical Quality: Very technically difficult study Contrast 1: Total Dose (mL): Contrast 2: Total Dose (mL): MEASUREMENTS (Male / Female) Normal Values 2D ECHO LV Diastolic Diameter PLAX 3.3 cm 4.2 - 5.9 / 3.9 - 5.3 cm LV Systolic Diameter PLAX 2.7 cm IVS Diastolic Thickness 1.3 cm 0.6 - 1.0 / 0.6 - 0.9 cm LVPW Diastolic Thickness 1.3 cm 0.6 - 1.0 / 0.6 - 0.9 cm LV Relative Wall Thickness 0.8 RV Internal Dim ED PLAX 3.0 cm LVOT Diameter 2.1 cm LA Systolic Diameter LX 3.2 cm 3.0 - 4.0 / 2.7 - 3.8 cm M-MODE Aortic Root Diameter MM 2.4 cm DOPPLER AV Peak Velocity 308.1 cm/s AV Peak Gradient 38.0 mmHg AV Mean Velocity 212.6 cm/s AV Mean Gradient 20.4 mmHg AV Velocity Time Integral 57.3 cm AI Peak Velocity 326.5 cm/s AI Peak Gradient 42.6 mmHg AI Pressure Half Time 543.9 ms MV Area PHT 3.3 cm??? TR Peak Velocity 298.4 cm/s TR Peak Gradient 35.6 mmHg Right Ventricular Systolic Press 45.6 mmHg FINDINGS Left Ventricle Left ventricular ejection fraction is estimated at 45-50 %. Small left ventricular cavity. Mild concentric left ventricular hypertrophy. Right Ventricle Normal right ventricular size. Moderate pulmonary hypertension. Right ventricular systolic pressure estimated at 46 mm hg. Right Atrium Right atrium not well visualized. Left Atrium Normal left atrial size. No left atrial thrombus or mass present. Mitral Valve Mitral valve thickened. Mild mitral regurgitation. Aortic Valve Aortic valve sclerosis. Moderate aortic stenosis with a peak gradient of 38 mmHg and a mean gradient of 20 mmHg. Mild aortic regurgitation. Tricuspid Valve Tricuspid valve not well visualized. Mild tricuspid regurgitation. Pulmonic Valve Pulmonic valve not well visualized. Pericardium No pericardial effusion. Aorta Normal size aortic root and proximal ascending aorta. CONCLUSIONS Technically suboptimal study secondary to poor echo windows Mild LV systolic dysfunction Moderate pulmonary hypertension Moderate aortic stenosis with mild aortic regurgitation Previewed by: Dr. Po Chen MD (Electronically Signed) Final Date: 25 December 2024 17:37
[2024-12-25 19:57] LABS: Glucose,Whole Blood 192 mg/dL (70-110)
[2024-12-25] MEDS: CEFEPIME 2 GM in SODIUM CHLORIDE 0.9% 100 ML IVPB SCH (20:28)
--- NOTE | 2024-12-25 23:09 | P.HPIM ---
History of Present Illness H&P Date: 12/25/24 This is a 79-year-old male who presented to the emergency department as a transfer from [facility] with significant shortness of breath on BiPAP with concerns of CHF exacerbation as well as possible pneumonia. Patient has been started on antibiotics in the form of cefepime and vancomycin. Will obtain procalcitonin. Pulmonary perinatal nurse has been consulted as patient will likely be going to ICU dependent on BiPAP currently. Patient's FiO2 is 50% with a PEEP of 5. Chest x-ray showing bilateral pleural effusions and there is discussion of the possible need for thoracentesis. On admission here, white count is elevated at 14.2, hemoglobin is stable at 10.9, platelets are 369, ABG shows a pH of 7.41, pCO2 is 29, pO2 66, bicarb is 18, sodium 141 with a potassium of 3.7, BUN 68 and creatinine up at 1.64, glucose 138, lactic acid 3.9, magnesium 1.5, troponin 0.096, BNP is 4230. Patient again being admitted to the ICU with pulmonary perinatal nurse as well as cardiology on consult. 2D echo is ordered and pending at this time. REVIEW OF SYSTEMS: Unable to completely assess as patient is lethargic The rest of the 14-point review of systems is negative. Active Medications Albuterol/Ipratropium (Ipratropium-Albuterol 3 Ml Neb) 3 ml INHALATION RT-Q4H PRN PRN Reason: Shortness Of Breath Or Wheezing Dextrose/Water (Dextrose 50% Syringe 50 Ml) 25 ml IVP PER PROTOCOL PRN; Protocol PRN Reason: Hypoglycemia Dextrose/Water (Dextrose 50% Syringe 50 Ml) 50 ml IVP PER PROTOCOL PRN; Protocol PRN Reason: Hypoglycemia Cefepime HCl 2 gm/ Sodium (Chloride) 100 mls @ 25 mls/hr IVPB Q12H BLUE; Protocol Lactated Ringer's (Lactated Ringers) 1,000 mls @ 130 mls/hr IV .[id number] ONE Stop: 12/25/24 19:27 Last Admin: 12/25/24 11:50 Dose: 130 mls/hr Vancomycin HCl 1,500 mg/ (Sodium Chloride) 500 mls @ 167 mls/hr IVPB Q24H BLUE Insulin Human Lispro (Insulin Lispro (Humalog) 100 Unit/Ml 10 Ml Vl) 0 unit SQ ACHS BLUE; Protocol Naloxone HCl (Naloxone 0.4 Mg/Ml 1 Ml Vial) 0.2 mg IV Q2M PRN PRN Reason: Opioid Reversal PHYSICAL EXAMINATION: GENERAL: The patient is alert and oriented x1, lethargic, somewhat arousable although fatigues easily. Currently BiPAP dependent with an FiO2 of 50% and PEEP is 5 well developed, elderly appearing, ill-appearing HEENT: Pupils are round and equally reacting to light. EOMI. No scleral icterus. No conjunctival pallor. Normocephalic, atraumatic. No pharyngeal erythema. No thyromegaly. CARDIOVASCULAR: S1 and S2 muffled PULMONARY: Diminished breath sounds bilaterally with some scattered expiratory wheezing as well as crackles noted at the bases. ABDOMEN: Soft, nontender, nondistended, normoactive bowel sounds. No palpable organomegaly. MUSCULOSKELETAL: No joint swelling or deformity. EXTREMITIES: No cyanosis, clubbing, or pedal edema. NEUROLOGICAL: Gross neurological examination did not reveal any focal deficits. Diffusely weak SKIN: No rashes. Assessment: Shortness of breath, multifactorial with concerns of CHF exacerbation as well as possible pneumonia Leukocytosis with tachycardia and elevated white count, possible sepsis, present on admission secondary to pneumonia Elevated troponin, 0.096, possibly type II secondary to CHF exacerbation as well as possible pneumonia Lactic acidosis secondary to sepsis Elevated kidney functions, acute renal failure Hypomagnesemia History of atrial fibrillation History of coronary artery disease with previous stenting Diabetes mellitus, type II, insulin-dependent Hyperlipidemia Hypertension Former tobacco use GI prophylaxis DVT prophylaxis Full code Plan: Patient was sent here from [facility] for further evaluation on BiPAP Cardiology and pulmonary consulted and patient will be going to ICU as patient is BiPAP dependent with concerns of sepsis, present on admission. Patient being started on cefepime as well as vancomycin Chest x-ray showing bilateral pleural effusions and pulmonary discussing the possible need for thoracentesis Patient is a diabetic and will add Accu-Cheks before meals and at bedtime as well as 2 AM and sliding scale. Continue n.p.o. until patient is more awake and able to tolerate off the BiPAP 2D echo was ordered and pending Appropriate home medications have been reviewed and resumed although patient is currently n.p.o. unable to tolerate oral intake Follow-up on repeat labs and replace electrolytes per protocol. Magnesium was 1.5 today and being replaced, kidney functions mildly elevated at 1.64 with a BUN of 68 although with heart failure recommend closely monitoring volume status. Lactic acid elevated at 3.9 on admission mildly improved after 1 L bolus at 2.9. Recommend being cautious with fluids during fluid resuscitation as patient does have history of heart failure The impression and plan of care has been dictated by Nikki Joseph, Nurse Practitioner as directed. Dr. Petros MD I have performed a history and examination and MDM of this patient, discussed same with the dictator, and agree with the dictator's assessment and plan as written ,documented as a scribe. Based on total visit time, I have performed more than 50% of the visit. Past Medical History Past Medical History: Atrial Fibrillation, Coronary Artery Disease (CAD), Cancer, Diabetes Mellitus, Hyperlipidemia, Hypertension Additional Past Medical History / Comment(s): See Dr Ybarra's H&P. 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 History of Any Multi-Drug Resistant Organisms: None Reported Past Surgical History: Heart Catheterization, Heart Catheterization With Stent, Orthopedic Surgery, Prostate Surgery Additional Past Surgical History / Comment(s): Right shoulder surgery, bilateral cataracts removed, TURP, TREMAINE. Past Anesthesia/Blood Transfusion Reactions: Previous Problems w/ Anesthesia Additional Past Anesthesia/Blood Transfusion Reaction / Comment(s): Difficulty waking up after prostate surgery-"TOOK LONGER TO WAKE UP." Date of Last Stent Placement:: Past Psychological History: No Psychological Hx Reported Smoking Status: Former smoker Past Alcohol Use History: None Reported Past Drug Use History: None Reported - Past Family History Mother Family Medical History: No Reported History Father Family Medical History: Coronary Artery Disease (CAD) Medications and Allergies Home Medications Medication Instructions Recorded Confirmed Type Furosemide [Lasix] 20 mg PO DAILY 02/27/19 12/25/24 History Pioglitazone HCl [Actos] 15 mg PO DAILY 02/27/19 12/25/24 History Rivaroxaban [Xarelto] 15 mg PO HS 02/27/19 12/25/24 History Acetaminophen [Tylenol] 650 mg PO Q4H PRN 12/25/24 12/25/24 History Ascorbic Acid [Vitamin C] 500 mg PO DAILY 12/25/24 12/25/24 History Atorvastatin [Lipitor] 40 mg PO HS 12/25/24 12/25/24 History Escitalopram [Lexapro] 10 mg PO DAILY 12/25/24 12/25/24 History Ferrous Sulfate [Feosol] 325 mg PO DAILY 12/25/24 12/25/24 History Finasteride [Proscar] 5 mg PO DAILY 12/25/24 12/25/24 History Losartan [Cozaar] 25 mg PO DAILY 12/25/24 12/25/24 History Methenamine Hippurate [Hiprex] 1 gm PO BID 12/25/24 12/25/24 History Muscle Rub External Cream 10-15% 1 applic TOPICAL Q6H PRN 12/25/24 12/25/24 History Ranolazine [Ranexa] 500 mg PO BID 12/25/24 12/25/24 History Tamsulosin [Flomax] 0.4 mg PO DAILY 12/25/24 12/25/24 History bisacodyL [Dulcolax] 10 mg PO DAILY PRN 12/25/24 12/25/24 History metFORMIN HCL [Glucophage] 500 mg PO TID 12/25/24 12/25/24 History Allergies Allergy/AdvReac Type Severity Reaction Status Date / Time No Known Allergies Allergy Verified 12/25/24 13:18 Physical Exam Vitals: Vital Signs Temp Pulse Resp BP Pulse Ox FiO2 12/25/24 14:07 60 12/25/24 12:32 110 H 12/25/24 12:18 112 H 50 12/25/24 12:00 103 H 30 H 116/71 94 L 12/25/24 11:19 60 12/25/24 11:08 97.7 F 93 27 H 116/70 98 Intake and Output 12/24/24 12/25/24 12/25/24 22:59 06:59 14:59 Other: Weight 81.647 kg Results CBC & Chem 7: 12/25/24 11:42 12/25/24 11:42 Labs: Abnormal Lab Results - Last 24 Hours (Table) 12/25/24 12/25/24 12/25/24 Range/Units 11:42 11:42 11:42 WBC 14.2 H (3.8-10.6) k/uL RBC 4.03 L (4.30-5.90) m/uL Hgb 10.9 L (13.0-17.5) gm/dL Hct 35.9 L (39.0-53.0) % MCHC 30.4 L (31.0-37.0) g/dL RDW 15.8 H (11.5-15.5) % Neutrophils # 12.7 H (1.3-7.7) k/uL PT 15.2 H (10.0-12.5) sec INR 1.5 H (<1.2) APTT 34.6 H (22.0-30.0) sec ABG pCO2 (35-45) mmHg ABG pO2 (83-108) mmHg ABG HCO3 (21-25) mmol/L ABG O2 Saturation (94-97) % Hemoglobin (13.0-17.5) gm/dL Carbon Dioxide 17 L (22-30) mmol/L BUN 68 H (9-20) mg/dL Creatinine 1.64 H (0.66-1.25) mg/dL Glucose 138 H (74-99) mg/dL Plasma Lactic Acid Mumtaz (0.7-2.0) mmol/L Calcium 7.9 L (8.4-10.2) mg/dL Magnesium 1.5 L (1.6-2.3) mg/dL Troponin I (0.000-0.034) ng/mL Total Protein 5.5 L (6.3-8.2) g/dL Albumin 3.1 L (3.5-5.0) g/dL 12/25/24 12/25/24 12/25/24 Range/Units 11:42 11:42 13:56 WBC (3.8-10.6) k/uL RBC (4.30-5.90) m/uL Hgb (13.0-17.5) gm/dL Hct (39.0-53.0) % MCHC (31.0-37.0) g/dL RDW (11.5-15.5) % Neutrophils # (1.3-7.7) k/uL PT (10.0-12.5) sec INR (<1.2) APTT (22.0-30.0) sec ABG pCO2 29 L (35-45) mmHg ABG pO2 66 L (83-108) mmHg ABG HCO3 18 L (21-25) mmol/L ABG O2 Saturation 91.9 L (94-97) % Hemoglobin 11.0 L (13.0-17.5) gm/dL Carbon Dioxide (22-30) mmol/L BUN (9-20) mg/dL Creatinine (0.66-1.25) mg/dL Glucose (74-99) mg/dL Plasma Lactic Acid Mumtaz 3.9 H* (0.7-2.0) mmol/L Calcium (8.4-10.2) mg/dL Magnesium (1.6-2.3) mg/dL Troponin I 0.096 H* (0.000-0.034) ng/mL Total Protein (6.3-8.2) g/dL Albumin (3.5-5.0) g/dL
[2024-12-26 06:00] LABS: Glucose,Whole Blood 190 mg/dL (70-110)
[2024-12-26 07:26] LABS: Anisocytosis Slight; Basophils % (A) 0 %; Eosinophils % (A) 0 %; HGB 10.9 gm/dL (13.0-17.5); Lymphocytes # (A) 1.1 k/uL (1.0-4.8); Lymphocytes % (A) 7 %; MCH 26.8 pg (25.0-35.0); MCHC 30.3 g/dL (31.0-37.0); MCV 88.6 fL (80.0-100.0); Mean Platelet Volume 7.8; Monocytes # (A) 0.3 k/uL (0-1.0); Monocytes % (A) 2 %; Neutrophils # (A) 13.8 k/uL (1.3-7.7); Neutrophils % (A) 90 %; Platelet Count 374 k/uL (150-450); RBC 4.07 m/uL (4.30-5.90); RDW 16.1 % (11.5-15.5); WBC 15.3 k/uL (3.8-10.6)
[2024-12-26] MEDS: IPRATROPIUM-ALBUTEROL 3 ML NEB INHALATION PRN (07:31)
[2024-12-26 07:32] LABS: ALT 12 U/L (4-49); AST 23 U/L (17-59); African American GFR (CKD) 52 (>60 ml/min/1.73 sqM); Alkaline Phosphatase 77 U/L (38-126); Anion Gap 15 mmol/L; Blood Urea Nitrogen 76 mg/dL (9-20); Calcium 8.5 mg/dL (8.4-10.2); Carbon Dioxide 22 mmol/L (22-30); Chloride 105 mmol/L (98-107); Glucose 173 mg/dL (74-99); Non-African American GFR(CKD) 45 (>60 ml/min/1.73 sqM); Potassium 3.3 mmol/L (3.5-5.1); Sodium 142 mmol/L (137-145); Total Bilirubin 0.8 mg/dL (0.2-1.3); Total Protein 5.4 g/dL (6.3-8.2)
[2024-12-26] MEDS: VANCOMYCIN 1,500 MG in SODIUM CHLORIDE 0.9% 500 ML 500 ML IVPB SCH (09:33)
[2024-12-26 11:19] LABS: Glucose,Whole Blood 223 mg/dL (70-110)
--- NOTE | 2024-12-26 12:10 | XR ---
EXAMINATION TYPE: XR chest 1V portable DATE OF EXAM: 12/26/2024 12:05 PM COMPARISON: None. CLINICAL INDICATION: Male, 79 years old with history of Post right thoracentesis, TECHNIQUE: XR chest 1V portable view(s) obtained. FINDINGS: The heart size is normal. The pulmonary vasculature is normal. Small bilateral pleural effusions are present. Some mild subsegmental atelectasis may be adjacent. Port is present on the right with the tip in the superior vena cava region. Pacemaker overlies left c hest. IMPRESSION: 1. Small bilateral pleural effusions [facility], , 12/26/2024 12:08 PM
[2024-12-26] MEDS: RANOLAZINE 500 MG TAB.ER.12H PO SCH (12:20)
[2024-12-26] MEDS: METOPROLOL SUCCINATE (ER) 25 MG TAB.ER.24H PO SCH (12:20)
--- NOTE | 2024-12-26 13:24 | P.CRDCN ---
History of Present Illness Consult date: 12/26/24 Reason for Consult (text): Atrial fibrillation, possible CHF, elevated troponin History of present illness: This is an 79-year-old male patient of Dr. Montgomery with past medical history of coronary artery disease status post stenting, sick sinus syndrome status post permanent pacemaker, paroxysmal atrial fibrillation, hypertension. We have been asked to evaluate the patient for atrial fibrillation, possible CHF and elevated troponin. Patient was initially seen at [facility] for possible pneumonia and sepsis and transferred to [facility]. Patient is status post multiple fluid boluses and initially placed on BiPAP in the emergency center. He is now on 10L high flow oxygen. Patient states he went to the hospital due to breathing problems and cough for a couple weeks. He also complains of dyspnea at rest. He denies palpitations. He states he had right sided chest pain. Blood pressure 121/64, heart rate 100, pulse ox 96% on high flow nasal cannula at 10 L. Patient is afebrile. Patient has been started on IV antibiotics nebulizer treatments, IV Lasix 20 mg daily. Magnesium has been replaced. -EKG: Atrial fibrillation at a ventricular rate of 103 bpm -Chest x-ray: Bilateral pleural effusions. -Chest ultrasound reveals right pleural effusion pocket size 13.1 cm, left pleural effusion pocket size 2.6 cm. -Echocardiogram reveals EF 45 to 50%, mild concentric left ventricular hypertrophy, moderate pulmonary hypertension, moderate aortic stenosis with mild aortic regurgitation. -Laboratory studies: WBC 14.2, hemoglobin 10.9. INR 1.5. BUN initially 68 now 76 and creatinine initially 1.64 with repeat at 1.44. Potassium 3.3. Troponin 0.096, 0.184 and 0.012. -Home cardiac medications: Atorvastatin 40 mg at bedtime, Lasix 20 mg daily, losartan 25 mg daily, Ranexa 500 mg twice daily, Xarelto 15 mg at bedtime, patient is also on ferrous sulfate and Proscar. Review Of Systems: At the time of my exam: CONSTITUTIONAL: Denies fever or chills. HEENT: Denies blurred vision, vision changes, or eye pain. Denies hemoptysis CARDIOVASCULAR: Denies chest pain. Denies orthopnea. Denies PND. Denies palpitations RESPIRATORY: Reports cough, reports shortness of breath. GASTROINTESTINAL: Denies abdominal pain. Denies nausea or vomiting. HEMATOLOGIC: Denies bleeding disorders. GENITOURINARY: Denies any blood in urine. SKIN: Denies puritis. Denies rash. Physical examination: Gen: This is an 79-year-old male in no acute respiratory distress. VS: reviewed HEENT: Head is atraumatic, normocephalic. Pupils equal, round. Sclerae is anicteric. NECK: Supple. No JVD. LUNGS: Diminished breath sounds bilaterally. No intercostal retractions. HEART: Regular rate and rhythm. No murmur. ABDOMEN: Soft No tenderness. EXTREMITIES: No pedal edema. No calf tenderness. NEUROLOGICAL: Patient is awake, alert. Assessment: Acute hypoxic respiratory failure multifactorial due to pneumonia most likely with elevated procalcitonin, possible component of acute systolic heart failure Possible pneumonia on IV antibiotics Bilateral pleural effusions, right greater than left Acute kidney injury NSTEMI, type II secondary to sepsis Valvular heart disease with moderate aortic stenosis and mild aortic regur gitation Moderate pulmonary hypertension CAD with previous stenting Sick sinus syndrome status post permanent pacemaker Paroxysmal atrial fibrillation Hypertension Plan: Continue current cardiac medications Hold Xarelto for possible thoracentesis Hold losartan due to abnormal renal function Continue patient on IV Lasix 20 mg daily Monitor BETZY, daily weights, electrolytes and renal function Interrogate pacemaker Further recommendations to follow based upon clinical course Thank you kindly for this consultation. Nurse practitioner note has been reviewed, I agree with documented findings and plan of care. Patient was seen and examined. Past Medical History Past Medical History: Atrial Fibrillation, Coronary Artery Disease (CAD), Cancer, Diabetes Mellitus, Hyperlipidemia, Hypertension Additional Past Medical History / Comment(s): See Dr Ybarra's H&P. 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 History of Any Multi-Drug Resistant Organisms: None Reported Past Surgical History: Heart Catheterization, Heart Catheterization With Stent, Orthopedic Surgery, Prostate Surgery Additional Past Surgical History / Comment(s): Right shoulder surgery, bilateral cataracts removed, TURP, TREMAINE. Past Anesthesia/Blood Transfusion Reactions: Previous Problems w/ Anesthesia Additional Past Anesthesia/Blood Transfusion Reaction / Comment(s): Difficulty waking up after prostate surgery-"TOOK LONGER TO WAKE UP." Date of Last Stent Placement:: Past Psychological History: No Psychological Hx Reported Smoking Status: Former smoker Past Alcohol Use History: None Reported Past Drug Use History: None Reported - Past Family History Mother Family Medical History: No Reported History Father Family Medical History: Coronary Artery Disease (CAD) Medications and Allergies Home Medications Medication Instructions Recorded Confirmed Type Furosemide [Lasix] 20 mg PO DAILY 02/27/19 12/25/24 History Pioglitazone HCl [Actos] 15 mg PO DAILY 02/27/19 12/25/24 History Rivaroxaban [Xarelto] 15 mg PO HS 02/27/19 12/25/24 History Acetaminophen [Tylenol] 650 mg PO Q4H PRN 12/25/24 12/25/24 History Ascorbic Acid [Vitamin C] 500 mg PO DAILY 12/25/24 12/25/24 History Atorvastatin [Lipitor] 40 mg PO HS 12/25/24 12/25/24 History Escitalopram [Lexapro] 10 mg PO DAILY 12/25/24 12/25/24 History Ferrous Sulfate [Feosol] 325 mg PO DAILY 12/25/24 12/25/24 History Finasteride [Proscar] 5 mg PO DAILY 12/25/24 12/25/24 History Losartan [Cozaar] 25 mg PO DAILY 12/25/24 12/25/24 History Methenamine Hippurate [Hiprex] 1 gm PO BID 12/25/24 12/25/24 History Muscle Rub External Cream 10-15% 1 applic TOPICAL Q6H PRN 12/25/24 12/25/24 History Ranolazine [Ranexa] 500 mg PO BID 12/25/24 12/25/24 History Tamsulosin [Flomax] 0.4 mg PO DAILY 12/25/24 12/25/24 History bisacodyL [Dulcolax] 10 mg PO DAILY PRN 12/25/24 12/25/24 History metFORMIN HCL [Glucophage] 500 mg PO TID 12/25/24 12/25/24 History Allergies Allergy/AdvReac Type Severity Reaction Status Date / Time No Known Allergies Allergy Verified 12/25/24 13:18 Physical Exam Vitals: Vital Signs Temp Pulse Pulse Resp BP BP Pulse Ox 12/26/24 08:03 98.4 F 100 20 121/64 96 12/26/24 07:49 104 H 12/26/24 07:32 104 H 96 12/26/24 04:00 89 22 119/64 96 12/26/24 03:47 12/26/24 01:43 80 22 12/26/24 00:47 12/25/24 23:19 92 20 110/68 12/25/24 21:38 12/25/24 19:52 96.9 F L 88 20 116/74 12/25/24 17:38 97.8 F 101 H 24 113/69 96 12/25/24 16:03 12/25/24 15:30 101 H 28 H 110/63 96 12/25/24 14:30 98 30 H 111/64 97 12/25/24 14:07 12/25/24 12:32 110 H 12/25/24 12:18 112 H 12/25/24 12:00 103 H 30 H 116/71 94 L 12/25/24 11:19 12/25/24 11:08 97.7 F 93 27 H 116/70 98 FiO2 12/26/24 08:03 12/26/24 07:49 12/26/24 07:32 60 12/26/24 04:00 60 12/26/24 03:47 60 12/26/24 01:43 12/26/24 00:47 60 12/25/24 23:19 60 12/25/24 21:38 60 12/25/24 19:52 60 12/25/24 17:38 12/25/24 16:03 60 12/25/24 15:30 12/25/24 14:30 12/25/24 14:07 60 12/25/24 12:32 12/25/24 12:18 50 12/25/24 12:00 12/25/24 11:19 60 12/25/24 11:08 Intake and Output 12/25/24 12/26/24 12/26/24 22:59 06:59 14:59 Other: Voiding Method Diaper External Catheter # Bowel Movements 1 Weight 81.647 kg 75 kg Results 12/26/24 06:27 12/26/24 06:27 Cardiac Enzymes 12/25/24 12/25/24 12/25/24 Range/Units 11:42 11:42 18:18 AST 21 (17-59) U/L Troponin I 0.096 H* 0.184 H* (0.000-0.034) ng/mL 12/25/24 12/26/24 Range/Units 21:00 06:27 AST 23 (17-59) U/L Troponin I <0.012 (0.000-0.034) ng/mL Coagulation 12/25/24 Range/Units 11:42 PT 15.2 H (10.0-12.5) sec APTT 34.6 H (22.0-30.0) sec CBC 12/25/24 12/26/24 Range/Units 11:42 06:27 WBC 14.2 H 15.3 H (3.8-10.6) k/uL RBC 4.03 L 4.07 L (4.30-5.90) m/uL Hgb 10.9 L 10.9 L (13.0-17.5) gm/dL Hct 35.9 L 36.0 L (39.0-53.0) % Plt Count 369 374 (150-450) k/uL Comprehensive Metabolic Panel 12/25/24 12/26/24 Range/Units 11:42 06:27 Sodium 141 142 (137-145) mmol/L Potassium 3.7 3.3 L (3.5-5.1) mmol/L Chloride 104 105 (98-107) mmol/L Carbon Dioxide 17 L 22 (22-30) mmol/L BUN 68 H 76 H (9-20) mg/dL Creatinine 1.64 H 1.44 H (0.66-1.25) mg/dL Glucose 138 H 173 H (74-99) mg/dL Calcium 7.9 L 8.5 (8.4-10.2) mg/dL AST 21 23 (17-59) U/L ALT 12 12 (4-49) U/L Alkaline Phosphatase 65 77 (38-126) U/L Total Protein 5.5 L 5.4 L (6.3-8.2) g/dL Albumin 3.1 L 3.0 L (3.5-5.0) g/dL Current Medications Generic Name Dose Route Start Last Admin Trade Name Freq PRN Reason Stop Dose Admin Albuterol/Ipratropium 3 ml 12/25/24 13:23 12/26/24 07:31 Ipratropium-Albuterol 3 Ml Neb INHALATION 3 ml RT-Q4H PRN Administration Shortness Of Breath Or Wheezing Dextrose/Water 25 ml 12/25/24 14:25 Dextrose 50% Syringe 50 Ml IVP PER PROTOCOL PRN Hypoglycemia Protocol Dextrose/Water 50 ml 12/25/24 14:25 Dextrose 50% Syringe 50 Ml IVP PER PROTOCOL PRN Hypoglycemia Protocol Furosemide 20 mg 12/25/24 16:45 12/26/24 08:13 Furosemide 10 Mg/Ml 2 Ml Vial IV 20 mg DAILY BLUE Administration Cefepime HCl 2 gm/ Sodium 100 mls @ 25 mls/hr 12/25/24 21:00 12/26/24 08:13 Chloride IVPB 25 mls/hr Q12H BLUE Administration Protocol Lactated Ringer's 1,000 mls @ 25 mls/hr 12/25/24 11:46 12/25/24 11:50 Lactated Ringers IV 12/26/24 11:45 130 mls/hr .Q24H ONE Administration Vancomycin HCl 1,500 mg/ 500 mls @ 167 mls/hr 12/26/24 09:00 Sodium Chloride IVPB Q24H [facility] Insulin Human Lispro 0 unit 12/25/24 17:30 12/26/24 06:21 Insulin Lispro (Humalog) 100 Unit/Ml 10 Ml Vl SQ Not Given ACHS [facility] Protocol Naloxone HCl 0.2 mg 12/25/24 13:23 Naloxone 0.4 Mg/Ml 1 Ml Vial IV Q2M PRN Opioid Reversal Intake and Output 12/25/24 12/26/24 12/26/24 22:59 06:59 14:59 Other: Voiding Method Diaper External Catheter # Bowel Movements 1 Weight 81.647 kg 75 kg 12/26/24 06:27 12/26/24 06:27
[2024-12-26] MEDS: RIVAROXABAN 15 MG TAB PO SCH ×2 (15:13→17:36)
--- NOTE | 2024-12-26 15:37 | P.PN ---
Subjective Progress Note Date: 12/26/24 This is an 79year-old white male with history of multiple medical problems including diabetes, coronary artery disease, history of congestive heart failure, dyslipidemia, patient was transferred today from [facility] for possible pneumonia and sepsis. Patient presented to the ER with shortness of breath, abnormal chest x-ray showing bilateral pleural effusions patient was noted to have low blood pressure upon his initial evaluation, patient was given fluid boluses at the [place] facility, and he was transferred here more fluids were given. I saw the patient in the ER, patient is on BiPAP, 10/05, patient is already feeling comfortable, he is hemodynamically stable, and I felt that the patient could be admitted to the cardiac floor instead of sending the patient to the ICU. Patient is already receiving broad-spectrum antibiotics, and again his chest x-ray is more suggestive of pulmonary edema underlying pneumonia is not entirely ruled out. History rm, the patient is a very poor historian, not much could be obtained from the patient himself as he seems to be confused. Looking at the chart patient already received 2 to 3 L of fluid boluses prior to my evaluation. CBC showed leukocytosis with WBC count is 14.2 hemoglobin 10.9 patient had an ABG on 50% FiO2 and BiPAP. pO2 of 66 pCO2 29 pH of 7.41. Ultrasound of the chest showed bilateral pleural effusions may have to consider diagnostic and therapeutic thoracentesis however the patient has been on Xarelto which is presently on hold. Electrolytes showed bicarb of 17 BUN of 68 creatinine 1.64 however no baseline creatinine available on this patient. In 2020, there is a report on the transesophageal echocardiogram showing mostly moderate sclerotic and decreased leaflet excursion of the aortic valve, there was also evidence of mild to moderate mitral regurgitation and his ejection fraction at the time was noted to be 50%. In the cardiology note, there is history of coronary artery disease and previous stenting of RCA history of sick sinus syndrome and permanent. Permanent pacemaker placement, he has paroxysmal atrial fibrillation hypertension and moderate severe aortic stenosis. The patient is seen today December 26, 2024 in follow-up on the selective care unit. He is currently resting in bed. Awake and alert in no acute distress. Flow nasal cannula. He has been afebrile. Hemodynamically stable. Ultrasound of the chest revealed a significant 13.1 cm pocket on the right. He did undergo thoracentesis today by Dr. Skinner with 600 mL of yellow cloudy thick fluid removed. Chest x-ray showed significant improvement. No evidence of pneumothorax. Fluid analysis, cultures and cytology pending. White count 15.3. Hemoglobin 10.9. Platelets 374. Sodium 142. Potassium 3.3. Bicarb 22. BUN 76. Creatinine 1.44. Glucose 173. He remains on cefepime and vancomycin. Remains on IV diuretics. Currently in a negative balance. Objective - Vital Signs Vital signs: Vital Signs Temp 98.6 F 12/26/24 12:13 Pulse 98 12/26/24 15:17 Resp 20 12/26/24 12:13 BP 120/71 12/26/24 12:13 Pulse Ox 97 12/26/24 12:13 FiO2 60 12/26/24 07:32 Intake & Output 12/25/24 12/26/24 12/26/24 18:59 06:59 18:59 Intake Total 180 Output Total 1400 Balance -1220 Weight 81.647 kg 75 kg Intake: Oral 180 Output: Urine 1400 Other: Voiding Method Diaper Diaper External Catheter External Catheter # Bowel Movements 1 - Exam GENERAL EXAM: Alert, weak, frail 79-year-old male, on 10 L high flow nasal cannula, fairly comfortable in no apparent distress. HEAD: Normocephalic. EYES: Normal reaction of pupils, equal size. NOSE: Clear with pink turbinates. THROAT: No erythema or exudates. NECK: No masses, no JVD. CHEST: No chest wall deformity. LUNGS: Equal air entry with bibasilar crackles right greater than left. CVS: S1 and S2 normal with no audible murmur, regular rhythm. ABDOMEN: No hepatosplenomegaly, normal bowel sounds, no guarding or rigidity. SPINE: No scoliosis or deformity SKIN: No rashes CENTRAL NERVOUS SYSTEM: Left-sided weakness, tone is normal in all 4 extremities. EXTREMITIES: There is no peripheral edema. No clubbing, no cyanosis. Peripheral pulses are intact. - Labs CBC & Chem 7: 12/26/24 06:27 12/26/24 06:27 Labs: Abnormal Lab Results - Last 24 Hours (Table) 12/25/24 12/25/24 12/25/24 Range/Units 14:41 17:04 18:18 WBC (3.8-10.6) k/uL RBC (4.30-5.90) m/uL Hgb (13.0-17.5) gm/dL Hct (39.0-53.0) % MCHC (31.0-37.0) g/dL RDW (11.5-15.5) % Neutrophils # (1.3-7.7) k/uL Potassium (3.5-5.1) mmol/L BUN (9-20) mg/dL Creatinine (0.66-1.25) mg/dL Glucose (74-99) mg/dL POC Glucose (mg/dL) 162 H (70-110) mg/dL Plasma Lactic Acid Mumtaz (0.7-2.0) mmol/L Troponin I 0.184 H* (0.000-0.034) ng/mL Total Protein (6.3-8.2) g/dL Albumin (3.5-5.0) g/dL Procalcitonin 20.30 H (0.02-0.50) ng/mL 12/25/24 12/25/24 12/26/24 Range/Units 18:18 19:56 05:58 WBC (3.8-10.6) k/uL RBC (4.30-5.90) m/uL Hgb (13.0-17.5) gm/dL Hct (39.0-53.0) % MCHC (31.0-37.0) g/dL RDW (11.5-15.5) % Neutrophils # (1.3-7.7) k/uL Potassium (3.5-5.1) mmol/L BUN (9-20) mg/dL Creatinine (0.66-1.25) mg/dL Glucose (74-99) mg/dL POC Glucose (mg/dL) 192 H 190 H (70-110) mg/dL Plasma Lactic Acid Mumtaz 2.9 H* (0.7-2.0) mmol/L Troponin I (0.000-0.034) ng/mL Total Protein (6.3-8.2) g/dL Albumin (3.5-5.0) g/dL Procalcitonin (0.02-0.50) ng/mL 02/25/25 02/25/25 02/25/25 Range/Units 06:27 06:27 11:17 WBC 15.3 H (3.8-10.6) k/uL RBC 4.07 L (4.30-5.90) m/uL Hgb 10.9 L (13.0-17.5) gm/dL Hct 36.0 L (39.0-53.0) % MCHC 30.3 L (31.0-37.0) g/dL RDW 16.1 H (11.5-15.5) % Neutrophils # 13.8 H (1.3-7.7) k/uL Potassium 3.3 L (3.5-5.1) mmol/L BUN 76 H (9-20) mg/dL Creatinine 1.44 H (0.66-1.25) mg/dL Glucose 173 H (74-99) mg/dL POC Glucose (mg/dL) 223 H (70-110) mg/dL Plasma Lactic Acid Mumtaz (0.7-2.0) mmol/L Troponin I (0.000-0.034) ng/mL Total Protein 5.4 L (6.3-8.2) g/dL Albumin 3.0 L (3.5-5.0) g/dL Procalcitonin (0.02-0.50) ng/mL Assessment and Plan Assessment: Acute hypoxic respiratory failure secondary to bilateral pleural effusions, suspect acute congestive heart failure, likely diastolic in nature. Right-sided thoracentesis performed today 600 mL of cloudy thick yellow fluid returned. Possible pneumonia and sepsis. Procalcitonin 20.3. Initiated on vancomycin and cefepime History of moderate aortic stenosis, and history of mitral regurgitation History of coronary artery disease and previous stent placement History of sick sinus syndrome Chronic atrial fibrillation Plan: The patient was seen and evaluated Ultrasound of the chest, labs and medications reviewed Right sided thoracentesis performed 600 mL of thick, cloudy, yellow fluid returned Continued on vancomycin and cefepime Fluid analysis, culture and cytology pending Follow-up chest x-ray reveals no pneumothorax Continue diuretics Resume Xarelto Titrate down the FiO2 as tolerated We will continue to follow I have personally seen and examined the patient, performed the documentation and the assessment and plan as written. Number of minutes spent on the visit: 10 Dictation was produced using [employer] software. Please excuse any grammatical, word or spelling errors..
[2024-12-26 15:50] LABS: Total Protein 5.3 g/dL (6.3-8.2)
[2024-12-26 16:08] LABS: Glucose,Whole Blood 235 mg/dL (70-110)
--- NOTE | 2024-12-26 18:56 | OP ---
OPERATIVE REPORT DATE OF SERVICE : PROCEDURE PERFORMED: Right-sided thoracentesis. PREOPERATIVE DIAGNOSIS: Right-sided pleural effusion. POSTOPERATIVE DIAGNOSIS: Right-sided pleural effusion. ANESTHESIA USED: 2 mL of 1% lidocaine. PROCEDURE IN DETAIL: The patient was placed in a sitting upright position, the area below the right scapula was prepared in a sterile fashion and drapes were applied. The area of the marking by ultrasound was placed at the 8th intercostal space and tip of the scapula. The area was locally anesthetized with lidocaine, and a 26-gauge needle inserted into the pleural space. Fluid was localized with the needle. Then a small tiny incision was made and a standard thoracentesis catheter was used and advanced into the pleural space. Fluid was localized and then the catheter was advanced over the needle into the pleural space. Freely flowing fluid was removed. I was able to retrieve 600 mL of relatively thick yellow fluid from the right pleural space. Fluid was sent for different diagnostic studies. Procedure was well tolerated, no complications. MMODL / IJN: [id number] /
[2024-12-26 20:25] LABS: Glucose,Whole Blood 204 mg/dL (70-110)
[2024-12-26] MEDS: ATORVASTATIN 40 MG TAB PO SCH (21:22)
--- NOTE | 2024-12-26 22:36 | P.CONS ---
History of Present Illness - Reason for Consult Consult date: 12/26/24 Pneumonia, elevated procalcitonin Requesting physician: Nikki Joseph - Chief Complaint Shortness of breath and cough x days - History of Present Illness Patient is a 79-year-old male with a past medical history significant for diabetes mellitus hypertension hyperlipidemia atrial fibrillation skin cancer presenting to the hospital for evaluation of increasing shortness of breath patient apparently was initially evaluated at [facility] with the patient has been diagnosed with sepsis pneumonia with respiratory failure requiring BiPAP with the patient has been transferred to [facility] patient apparently has been getting sick over the last few days symptom has been worsening cough congestion and shortness of breath patient cough is moderate intensity has been bringing up some sputum denies any hemoptysis no pleuritic chest pain no nausea no vomiting no choking on the food no abdominal pain or diarrhea on presentation to the hospital the patient was afebrile and no fever have been recorded subsequently patient was tachycardic but not hypotensive he was hypoxic currently requiring hyponasal cannula oxygen patient did have white count of 14.2 with repeat is 15.3 creatinine is 1.44 procalcitonin 0.30 patient did have a chest x-ray bilateral effusion patient has been started on vancomycin cefepime infectious was consulted for further management of antibiotic therapy Review of Systems Positive point and negatives has been mentioned in the HPI, complete review of systems was performed and all other systems are negative Past Medical History Past Medical History: Atrial Fibrillation, Coronary Artery Disease (CAD), Cancer, Diabetes Mellitus, Hyperlipidemia, Hypertension Additional Past Medical History / Comment(s): See Dr Ybarra's H&P. 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 History of Any Multi-Drug Resistant Organisms: None Reported Past Surgical History: Heart Catheterization, Heart Catheterization With Stent, Orthopedic Surgery, Prostate Surgery Additional Past Surgical History / Comment(s): Right shoulder surgery, bilateral cataracts removed, TURP, TREMAINE. Past Anesthesia/Blood Transfusion Reactions: Previous Problems w/ Anesthesia Additional Past Anesthesia/Blood Transfusion Reaction / Comm: Difficulty waking up after prostate surgery-"TOOK LONGER TO WAKE UP." Date of Last Stent Placement:: Past Psychological History: No Psychological Hx Reported Smoking Status: Former smoker Past Alcohol Use History: None Reported Past Drug Use History: None Reported - Past Family History Mother Family Medical History: No Reported History Father Family Medical History: Coronary Artery Disease (CAD) Medications and Allergies Home Medications Medication Instructions Recorded Confirmed Type Furosemide [Lasix] 20 mg PO DAILY 02/27/19 12/25/24 History Pioglitazone HCl [Actos] 15 mg PO DAILY 02/27/19 12/25/24 History Rivaroxaban [Xarelto] 15 mg PO HS 02/27/19 12/25/24 History Acetaminophen [Tylenol] 650 mg PO Q4H PRN 12/25/24 12/25/24 History Ascorbic Acid [Vitamin C] 500 mg PO DAILY 12/25/24 12/25/24 History Atorvastatin [Lipitor] 40 mg PO HS 12/25/24 12/25/24 History Escitalopram [Lexapro] 10 mg PO DAILY 12/25/24 12/25/24 History Ferrous Sulfate [Feosol] 325 mg PO DAILY 12/25/24 12/25/24 History Finasteride [Proscar] 5 mg PO DAILY 12/25/24 12/25/24 History Losartan [Cozaar] 25 mg PO DAILY 12/25/24 12/25/24 History Methenamine Hippurate [Hiprex] 1 gm PO BID 12/25/24 12/25/24 History Muscle Rub External Cream 10-15% 1 applic TOPICAL Q6H PRN 12/25/24 12/25/24 History Ranolazine [Ranexa] 500 mg PO BID 12/25/24 12/25/24 History Tamsulosin [Flomax] 0.4 mg PO DAILY 12/25/24 12/25/24 History bisacodyL [Dulcolax] 10 mg PO DAILY PRN 12/25/24 12/25/24 History metFORMIN HCL [Glucophage] 500 mg PO TID 12/25/24 12/25/24 History Allergies Allergy/AdvReac Type Severity Reaction Status Date / Time No Known Allergies Allergy Verified 12/25/24 13:18 Physical Exam Vitals: Vital Signs Temp Pulse Pulse Resp BP BP Pulse Ox 12/26/24 11:16 102 H 12/26/24 11:09 114 H 12/26/24 08:15 20 12/26/24 08:03 98.4 F 100 20 121/64 96 12/26/24 07:49 104 H 12/26/24 07:32 104 H 96 12/26/24 04:00 89 22 119/64 96 12/26/24 03:47 12/26/24 01:43 80 22 12/26/24 00:47 12/25/24 23:19 92 20 110/68 12/25/24 21:38 12/25/24 19:52 96.9 F L 88 20 116/74 12/25/24 17:38 97.8 F 101 H 24 113/69 96 12/25/24 16:03 12/25/24 15:30 101 H 28 H 110/63 96 12/25/24 14:30 98 30 H 111/64 97 12/25/24 14:07 12/25/24 12:32 110 H 12/25/24 12:18 112 H 12/25/24 12:00 103 H 30 H 116/71 94 L FiO2 12/26/24 11:16 12/26/24 11:09 12/26/24 08:15 12/26/24 08:03 12/26/24 07:49 12/26/24 07:32 60 12/26/24 04:00 60 12/26/24 03:47 60 12/26/24 01:43 12/26/24 00:47 60 12/25/24 23:19 60 12/25/24 21:38 60 12/25/24 19:52 60 12/25/24 17:38 12/25/24 16:03 60 12/25/24 15:30 12/25/24 14:30 12/25/24 14:07 60 12/25/24 12:32 12/25/24 12:18 50 12/25/24 12:00 Intake and Output 12/25/24 12/26/24 12/26/24 22:59 06:59 14:59 Output Total 400 Balance -400 Output: Urine 400 Other: Voiding Method Diaper Diaper External Catheter External Catheter # Bowel Movements 1 Weight 81.647 kg 75 kg GENERAL DESCRIPTION: Elderly male lying in bed, no distress. No tachypnea or accessory muscle of respiration use. HEENT: Shows Pallor , no scleral icterus. Oral mucous membrane is dry. NECK: Trachea central, no thyromegaly. LUNGS: Unlabored breathing. Decreased breath sound at the base HEART: S1, S2, regular rate and rhythm. No loud murmur ABDOMEN: Soft, no tenderness , guarding or rigidity, no organomegaly EXTREMITIES: No edema of feet. SKIN: No rash, no masses palpable. NEUROLOGICAL: The patient is awake, alert,mood and affect normal. Results CBC & Chem 7: 12/26/24 06:27 12/26/24 06:27 Labs: Abnormal Lab Results - Last 24 Hours (Table) 12/25/24 12/25/24 12/25/24 Range/Units 11:42 11:42 11:42 WBC 14.2 H (3.8-10.6) k/uL RBC 4.03 L (4.30-5.90) m/uL Hgb 10.9 L (13.0-17.5) gm/dL Hct 35.9 L (39.0-53.0) % MCHC 30.4 L (31.0-37.0) g/dL RDW 15.8 H (11.5-15.5) % Neutrophils # 12.7 H (1.3-7.7) k/uL PT 15.2 H (10.0-12.5) sec INR 1.5 H (<1.2) APTT 34.6 H (22.0-30.0) sec ABG pCO2 (35-45) mmHg ABG pO2 (83-108) mmHg ABG HCO3 (21-25) mmol/L ABG O2 Saturation (94-97) % Hemoglobin (13.0-17.5) gm/dL Potassium (3.5-5.1) mmol/L Carbon Dioxide 17 L (22-30) mmol/L BUN 68 H (9-20) mg/dL Creatinine 1.64 H (0.66-1.25) mg/dL Glucose 138 H (74-99) mg/dL POC Glucose (mg/dL) (70-110) mg/dL Plasma Lactic Acid Mumtaz (0.7-2.0) mmol/L Calcium 7.9 L (8.4-10.2) mg/dL Magnesium 1.5 L (1.6-2.3) mg/dL Troponin I (0.000-0.034) ng/mL Total Protein 5.5 L (6.3-8.2) g/dL Albumin 3.1 L (3.5-5.0) g/dL Procalcitonin (0.02-0.50) ng/mL 12/25/24 12/25/24 12/25/24 Range/Units 11:42 11:42 13:56 WBC (3.8-10.6) k/uL RBC (4.30-5.90) m/uL Hgb (13.0-17.5) gm/dL Hct (39.0-53.0) % MCHC (31.0-37.0) g/dL RDW (11.5-15.5) % Neutrophils # (1.3-7.7) k/uL PT (10.0-12.5) sec INR (<1.2) APTT (22.0-30.0) sec ABG pCO2 29 L (35-45) mmHg ABG pO2 66 L (83-108) mmHg ABG HCO3 18 L (21-25) mmol/L ABG O2 Saturation 91.9 L (94-97) % Hemoglobin 11.0 L (13.0-17.5) gm/dL Potassium (3.5-5.1) mmol/L Carbon Dioxide (22-30) mmol/L BUN (9-20) mg/dL Creatinine (0.66-1.25) mg/dL Glucose (74-99) mg/dL POC Glucose (mg/dL) (70-110) mg/dL Plasma Lactic Acid Mumtaz 3.9 H* (0.7-2.0) mmol/L Calcium (8.4-10.2) mg/dL Magnesium (1.6-2.3) mg/dL Troponin I 0.096 H* (0.000-0.034) ng/mL Total Protein (6.3-8.2) g/dL Albumin (3.5-5.0) g/dL Procalcitonin (0.02-0.50) ng/mL 12/25/24 12/25/24 12/25/24 Range/Units 14:28 14:41 17:04 WBC (3.8-10.6) k/uL RBC (4.30-5.90) m/uL Hgb (13.0-17.5) gm/dL Hct (39.0-53.0) % MCHC (31.0-37.0) g/dL RDW (11.5-15.5) % Neutrophils # (1.3-7.7) k/uL PT (10.0-12.5) sec INR (<1.2) APTT (22.0-30.0) sec ABG pCO2 (35-45) mmHg ABG pO2 (83-108) mmHg ABG HCO3 (21-25) mmol/L ABG O2 Saturation (94-97) % Hemoglobin (13.0-17.5) gm/dL Potassium (3.5-5.1) mmol/L Carbon Dioxide (22-30) mmol/L BUN (9-20) mg/dL Creatinine (0.66-1.25) mg/dL Glucose (74-99) mg/dL POC Glucose (mg/dL) 162 H (70-110) mg/dL Plasma Lactic Acid Mumtaz 2.9 H* (0.7-2.0) mmol/L Calcium (8.4-10.2) mg/dL Magnesium (1.6-2.3) mg/dL Troponin I (0.000-0.034) ng/mL Total Protein (6.3-8.2) g/dL Albumin (3.5-5.0) g/dL Procalcitonin 20.30 H (0.02-0.50) ng/mL 12/25/24 12/25/24 12/25/24 Range/Units 18:18 18:18 19:56 WBC (3.8-10.6) k/uL RBC (4.30-5.90) m/uL Hgb (13.0-17.5) gm/dL Hct (39.0-53.0) % MCHC (31.0-37.0) g/dL RDW (11.5-15.5) % Neutrophils # (1.3-7.7) k/uL PT (10.0-12.5) sec INR (<1.2) APTT (22.0-30.0) sec ABG pCO2 (35-45) mmHg ABG pO2 (83-108) mmHg ABG HCO3 (21-25) mmol/L ABG O2 Saturation (94-97) % Hemoglobin (13.0-17.5) gm/dL Potassium (3.5-5.1) mmol/L Carbon Dioxide (22-30) mmol/L BUN (9-20) mg/dL Creatinine (0.66-1.25) mg/dL Glucose (74-99) mg/dL POC Glucose (mg/dL) 192 H (70-110) mg/dL Plasma Lactic Acid Mumtaz 2.9 H* (0.7-2.0) mmol/L Calcium (8.4-10.2) mg/dL Magnesium (1.6-2.3) mg/dL Troponin I 0.184 H* (0.000-0.034) ng/mL Total Protein (6.3-8.2) g/dL Albumin (3.5-5.0) g/dL Procalcitonin (0.02-0.50) ng/mL 12/26/24 12/26/24 12/26/24 Range/Units 05:58 06:27 06:27 WBC 15.3 H (3.8-10.6) k/uL RBC 4.07 L (4.30-5.90) m/uL Hgb 10.9 L (13.0-17.5) gm/dL Hct 36.0 L (39.0-53.0) % MCHC 30.3 L (31.0-37.0) g/dL RDW 16.1 H (11.5-15.5) % Neutrophils # 13.8 H (1.3-7.7) k/uL PT (10.0-12.5) sec INR (<1.2) APTT (22.0-30.0) sec ABG pCO2 (35-45) mmHg ABG pO2 (83-108) mmHg ABG HCO3 (21-25) mmol/L ABG O2 Saturation (94-97) % Hemoglobin (13.0-17.5) gm/dL Potassium 3.3 L (3.5-5.1) mmol/L Carbon Dioxide (22-30) mmol/L BUN 76 H (9-20) mg/dL Creatinine 1.44 H (0.66-1.25) mg/dL Glucose 173 H (74-99) mg/dL POC Glucose (mg/dL) 190 H (70-110) mg/dL Plasma Lactic Acid Mumtaz (0.7-2.0) mmol/L Calcium (8.4-10.2) mg/dL Magnesium (1.6-2.3) mg/dL Troponin I (0.000-0.034) ng/mL Total Protein 5.4 L (6.3-8.2) g/dL Albumin 3.0 L (3.5-5.0) g/dL Procalcitonin (0.02-0.50) ng/mL 12/26/24 Range/Units 11:17 WBC (3.8-10.6) k/uL RBC (4.30-5.90) m/uL Hgb (13.0-17.5) gm/dL Hct (39.0-53.0) % MCHC (31.0-37.0) g/dL RDW (11.5-15.5) % Neutrophils # (1.3-7.7) k/uL PT (10.0-12.5) sec INR (<1.2) APTT (22.0-30.0) sec ABG pCO2 (35-45) mmHg ABG pO2 (83-108) mmHg ABG HCO3 (21-25) mmol/L ABG O2 Saturation (94-97) % Hemoglobin (13.0-17.5) gm/dL Potassium (3.5-5.1) mmol/L Carbon Dioxide (22-30) mmol/L BUN (9-20) mg/dL Creatinine (0.66-1.25) mg/dL Glucose (74-99) mg/dL POC Glucose (mg/dL) 223 H (70-110) mg/dL Plasma Lactic Acid Mumtaz (0.7-2.0) mmol/L Calcium (8.4-10.2) mg/dL Magnesium (1.6-2.3) mg/dL Troponin I (0.000-0.034) ng/mL Total Protein (6.3-8.2) g/dL Albumin (3.5-5.0) g/dL Procalcitonin (0.02-0.50) ng/mL Assessment and Plan (1) Pleural effusion Current Visit: Yes Status: Acute Code(s): J90 - PLEURAL EFFUSION, NOT ELSEWHERE CLASSIFIED SNOMED Code(s): 79293605 (2) Pneumonia Current Visit: Yes Status: Acute Code(s): J18.9 - PNEUMONIA, UNSPECIFIED ORGANISM SNOMED Code(s): 719921405 Plan: 1patient presented to hospital with increasing shortness of breath cough and this patient did have evidence of bilateral effusion patient also have elevated procalcitonin concerning for possible pneumonia with a parapneumonic effusion. 2await thoracocentesis and the fluid should be sent for Gram stain and culture. 3patient to be treated with a broad-spectrum antibiotics in form of vancomycin and cefepime while waiting for the culture to finalize. We will follow on clinical condition and cultures to further adjust medication if needed Thank you for this consultation we will follow the patient along with you Dictation was produced using [employer] dictation software. please excuse any grammatical, word or spelling errors. Time with Patient: Greater than 30
[2024-12-27 04:09] LABS: T. Protein, Body Fluid Source Pleural Fluid; Total Protein, Body Fluid >3600 mg/dL
[2024-12-27 04:21] LABS: LDH, Body Fluid Source Pleural Fluid
[2024-12-27 04:36] LABS: Glucose, BF Source Pleural Fluid; Glucose, Body Fluid <2 mg/dL
[2024-12-27 04:46] LABS: Appearance,BF Clumped (Clear)
[2024-12-27 06:20] LABS: Glucose,Whole Blood 181 mg/dL (70-110)
[2024-12-27 07:54] LABS: Basophils % (A) 0 %; Eosinophils % (A) 0 %; HCT 33.9 % (39.0-53.0); HGB 10.5 gm/dL (13.0-17.5); Hypochromasia Slight; Lymphocytes % (A) 7 %; MCH 27.7 pg (25.0-35.0); MCHC 30.9 g/dL (31.0-37.0); MCV 89.6 fL (80.0-100.0); Mean Platelet Volume 7.4; Monocytes # (A) 0.4 k/uL (0-1.0); Monocytes % (A) 3 %; Neutrophils # (A) 13.5 k/uL (1.3-7.7); Neutrophils % (A) 90 %; Platelet Count 356 k/uL (150-450); RBC 3.78 m/uL (4.30-5.90); RDW 15.9 % (11.5-15.5)
[2024-12-27 08:13] LABS: African American GFR (CKD) 88 (>60 ml/min/1.73 sqM); Anion Gap 10 mmol/L; Blood Urea Nitrogen 66 mg/dL (9-20); Carbon Dioxide 27 mmol/L (22-30); Chloride 107 mmol/L (98-107); Glucose 162 mg/dL (74-99); Non-African American GFR(CKD) 76 (>60 ml/min/1.73 sqM); Potassium 3.2 mmol/L (3.5-5.1); Sodium 144 mmol/L (137-145)
--- NOTE | 2024-12-27 09:48 | P.PN ---
Subjective Progress Note Date: 12/26/24 This is a 79-year-old male who presented to the emergency department as a transfer from [facility] with significant shortness of breath on BiPAP with concerns of CHF exacerbation as well as possible pneumonia. Patient has been started on antibiotics in the form of cefepime and vancomycin. Will obtain procalcitonin. Pulmonary performance management consultant has been consulted as patient will likely be going to ICU dependent on BiPAP currently. Patient's FiO2 is 50% with a PEEP of 5. Chest x-ray showing bilateral pleural effusions and there is discussion of the possible need for thoracentesis. On admission here, white count is elevated at 14.2, hemoglobin is stable at 10.9, platelets are 369, ABG shows a pH of 7.41, pCO2 is 29, pO2 66, bicarb is 18, sodium 141 with a potassium of 3.7, BUN 68 and creatinine up at 1.64, glucose 138, lactic acid 3.9, magnesium 1.5, troponin 0.096, BNP is 4230. Patient again being admitted to the ICU with pulmonary performance management consultant as well as cardiology on consult. 2D echo is ordered and pending at this time. 12/26/2024 Patient is seen in follow-up today with multiple consultations following including pulmonary, infectious disease, cardiology. Patient continues on BiPAP and transitioning to high flow oxygen at 10 L. Patient resides at [facility] and will be returning there on discharge. Apparently patient does not wear oxygen at the [facility]CF. Weaning as tolerated and patient is also status post thoracentesis on the right with pulmonary today at bedside. Will await cultures and patient also maintained on antibiotics in the form of cefepime and vancomycin with infectious disease following. REVIEW OF SYSTEMS: Unable to completely assess as patient is lethargic The rest of the 14-point review of systems is negative. PHYSICAL EXAMINATION: GENERAL: The patient is alert and oriented x1, lethargic, somewhat arousable although fatigues easily. Currently BiPAP dependent with an FiO2 of 50% and PEEP is 5 well developed, elderly appearing, ill-appearing HEENT: Pupils are round and equally reacting to light. EOMI. No scleral icterus. No conjunctival pallor. Normocephalic, atraumatic. No pharyngeal erythema. No thyromegaly. CARDIOVASCULAR: S1 and S2 muffled PULMONARY: Diminished breath sounds bilaterally with some scattered expiratory wheezing as well as crackles noted at the bases. ABDOMEN: Soft, nontender, nondistended, normoactive bowel sounds. No palpable organomegaly. MUSCULOSKELETAL: No joint swelling or deformity. EXTREMITIES: No cyanosis, clubbing, or pedal edema. NEUROLOGICAL: Gross neurological examination did not reveal any focal deficits. Diffusely weak SKIN: No rashes. Assessment: Shortness of breath, multifactorial with concerns of CHF exacerbation, bilateral pleural effusions, greater on the right as well as possible pneumonia Leukocytosis with tachycardia and elevated white count, possible sepsis, present on admission secondary to pneumonia Elevated troponin, 0.096, possibly type II secondary to CHF exacerbation as well as possible pneumonia Lactic acidosis secondary to sepsis Elevated kidney functions, acute renal failure Acute systolic heart failure with an EF of 40 to 45% Hypomagnesemia History of atrial fibrillation Bilateral pleural effusions, status post thoracentesis on the right with approximately 600 mL removed History of coronary artery disease with previous stenting Diabetes mellitus, type II, insulin-dependent History of sick sinus syndrome, status post permanent pacemaker previously Hyperlipidemia Hypertension Former tobacco use GI prophylaxis DVT prophylaxis Full code Plan: Patient was sent here from [facility] for further evaluation on BiPAP Cardiology and pulmonary following as patient is BiPAP dependent with concerns of sepsis, present on admission. Patient being started on cefepime as well as vancomycin, consulted infectious disease and appreciate input and rec ommendations Chest x-ray showing bilateral pleural effusions worse on the right and pulmonary following is status post bedside thoracentesis of approximately 600 mL removed. Specimen sent for analysis and pending Patient is a diabetic and will continue Accu-Cheks before meals and at bedtime as well as 2 AM and sliding scale. 2D echo shows an EF of 40 to 45% with moderate aortic stenosis and mild aortic regurgitation noted along with moderate pulmonary hypertension Appropriate home medications have been reviewed and resumed although patient is currently n.p.o. unable to tolerate oral intake Follow-up on repeat labs and replace electrolytes per protocol. Case management following and plan will be to return to [facility] on discharge where he resides. The impression and plan of care has been dictated by Nikki Joseph, Nurse Practitioner as directed. Dr. Petros MD I have performed a history and examination and MDM of this patient, discussed the same with the dictator, and agree with the dictator's assessment and plan as written ,documented as a scribe. Based on total visit time, I have performed more than 50% of the visit. Objective - Vital Signs Vital signs: Vital Signs Temp 98.4 F 12/26/24 08:03 Pulse 100 12/26/24 08:03 Resp 20 12/26/24 08:03 BP 121/64 12/26/24 08:03 Pulse Ox 96 12/26/24 08:03 FiO2 60 12/26/24 07:32 Intake & Output 12/25/24 12/26/24 12/26/24 18:59 06:59 18:59 Weight 81.647 kg 75 kg Other: Voiding Method Diaper External Catheter # Bowel Movements 1 - Labs CBC & Chem 7: 12/27/24 07:02 12/27/24 07:02 Labs: Abnormal Lab Results - Last 24 Hours (Table) 12/25/24 12/25/24 12/25/24 Range/Units 11:42 11:42 11:42 WBC 14.2 H (3.8-10.6) k/uL RBC 4.03 L (4.30-5.90) m/uL Hgb 10.9 L (13.0-17.5) gm/dL Hct 35.9 L (39.0-53.0) % MCHC 30.4 L (31.0-37.0) g/dL RDW 15.8 H (11.5-15.5) % Neutrophils # 12.7 H (1.3-7.7) k/uL PT 15.2 H (10.0-12.5) sec INR 1.5 H (<1.2) APTT 34.6 H (22.0-30.0) sec ABG pCO2 (35-45) mmHg ABG pO2 (83-108) mmHg ABG HCO3 (21-25) mmol/L ABG O2 Saturation (94-97) % Hemoglobin (13.0-17.5) gm/dL Potassium (3.5-5.1) mmol/L Carbon Dioxide 17 L (22-30) mmol/L BUN 68 H (9-20) mg/dL Creatinine 1.64 H (0.66-1.25) mg/dL Glucose 138 H (74-99) mg/dL POC Glucose (mg/dL) (70-110) mg/dL Plasma Lactic Acid Mumtaz (0.7-2.0) mmol/L Calcium 7.9 L (8.4-10.2) mg/dL Magnesium 1.5 L (1.6-2.3) mg/dL Troponin I (0.000-0.034) ng/mL Total Protein 5.5 L (6.3-8.2) g/dL Albumin 3.1 L (3.5-5.0) g/dL Procalcitonin (0.02-0.50) ng/mL 12/25/24 12/25/24 12/25/24 Range/Units 11:42 11:42 13:56 WBC (3.8-10.6) k/uL RBC (4.30-5.90) m/uL Hgb (13.0-17.5) gm/dL Hct (39.0-53.0) % MCHC (31.0-37.0) g/dL RDW (11.5-15.5) % Neutrophils # (1.3-7.7) k/uL PT (10.0-12.5) sec INR (<1.2) APTT (22.0-30.0) sec ABG pCO2 29 L (35-45) mmHg ABG pO2 66 L (83-108) mmHg ABG HCO3 18 L (21-25) mmol/L ABG O2 Saturation 91.9 L (94-97) % Hemoglobin 11.0 L (13.0-17.5) gm/dL Potassium (3.5-5.1) mmol/L Carbon Dioxide (22-30) mmol/L BUN (9-20) mg/dL Creatinine (0.66-1.25) mg/dL Glucose (74-99) mg/dL POC Glucose (mg/dL) (70-110) mg/dL Plasma Lactic Acid Mumtaz 3.9 H* (0.7-2.0) mmol/L Calcium (8.4-10.2) mg/dL Magnesium (1.6-2.3) mg/dL Troponin I 0.096 H* (0.000-0.034) ng/mL Total Protein (6.3-8.2) g/dL Albumin (3.5-5.0) g/dL Procalcitonin (0.02-0.50) ng/mL 12/25/24 12/25/24 12/25/24 Range/Units 14:28 14:41 17:04 WBC (3.8-10.6) k/uL RBC (4.30-5.90) m/uL Hgb (13.0-17.5) gm/dL Hct (39.0-53.0) % MCHC (31.0-37.0) g/dL RDW (11.5-15.5) % Neutrophils # (1.3-7.7) k/uL PT (10.0-12.5) sec INR (<1.2) APTT (22.0-30.0) sec ABG pCO2 (35-45) mmHg ABG pO2 (83-108) mmHg ABG HCO3 (21-25) mmol/L ABG O2 Saturation (94-97) % Hemoglobin (13.0-17.5) gm/dL Potassium (3.5-5.1) mmol/L Carbon Dioxide (22-30) mmol/L BUN (9-20) mg/dL Creatinine (0.66-1.25) mg/dL Glucose (74-99) mg/dL POC Glucose (mg/dL) 162 H (70-110) mg/dL Plasma Lactic Acid Mumtaz 2.9 H* (0.7-2.0) mmol/L Calcium (8.4-10.2) mg/dL Magnesium (1.6-2.3) mg/dL Troponin I (0.000-0.034) ng/mL Total Protein (6.3-8.2) g/dL Albumin (3.5-5.0) g/dL Procalcitonin 20.30 H (0.02-0.50) ng/mL 12/25/24 12/25/24 12/25/24 Range/Units 18:18 18:18 19:56 WBC (3.8-10.6) k/uL RBC (4.30-5.90) m/uL Hgb (13.0-17.5) gm/dL Hct (39.0-53.0) % MCHC (31.0-37.0) g/dL RDW (11.5-15.5) % Neutrophils # (1.3-7.7) k/uL PT (10.0-12.5) sec INR (<1.2) APTT (22.0-30.0) sec ABG pCO2 (35-45) mmHg ABG pO2 (83-108) mmHg ABG HCO3 (21-25) mmol/L ABG O2 Saturation (94-97) % Hemoglobin (13.0-17.5) gm/dL Potassium (3.5-5.1) mmol/L Carbon Dioxide (22-30) mmol/L BUN (9-20) mg/dL Creatinine (0.66-1.25) mg/dL Glucose (74-99) mg/dL POC Glucose (mg/dL) 192 H (70-110) mg/dL Plasma Lactic Acid Mumtaz 2.9 H* (0.7-2.0) mmol/L Calcium (8.4-10.2) mg/dL Magnesium (1.6-2.3) mg/dL Troponin I 0.184 H* (0.000-0.034) ng/mL Total Protein (6.3-8.2) g/dL Albumin (3.5-5.0) g/dL Procalcitonin (0.02-0.50) ng/mL 12/26/24 12/26/24 12/26/24 Range/Units 05:58 06:27 06:27 WBC 15.3 H (3.8-10.6) k/uL RBC 4.07 L (4.30-5.90) m/uL Hgb 10.9 L (13.0-17.5) gm/dL Hct 36.0 L (39.0-53.0) % MCHC 30.3 L (31.0-37.0) g/dL RDW 16.1 H (11.5-15.5) % Neutrophils # 13.8 H (1.3-7.7) k/uL PT (10.0-12.5) sec INR (<1.2) APTT (22.0-30.0) sec ABG pCO2 (35-45) mmHg ABG pO2 (83-108) mmHg ABG HCO3 (21-25) mmol/L ABG O2 Saturation (94-97) % Hemoglobin (13.0-17.5) gm/dL Potassium 3.3 L (3.5-5.1) mmol/L Carbon Dioxide (22-30) mmol/L BUN 76 H (9-20) mg/dL Creatinine 1.44 H (0.66-1.25) mg/dL Glucose 173 H (74-99) mg/dL POC Glucose (mg/dL) 190 H (70-110) mg/dL Plasma Lactic Acid Mumtaz (0.7-2.0) mmol/L Calcium (8.4-10.2) mg/dL Magnesium (1.6-2.3) mg/dL Troponin I (0.000-0.034) ng/mL Total Protein 5.4 L (6.3-8.2) g/dL Albumin 3.0 L (3.5-5.0) g/dL Procalcitonin (0.02-0.50) ng/mL
[2024-12-27 11:35] LABS: Glucose,Whole Blood 229 mg/dL (70-110)
--- NOTE | 2024-12-27 14:45 | P.PN ---
Subjective Progress Note Date: 12/27/24 Reason for Consult (text): Atrial fibrillation, possible CHF, elevated troponin History of present illness: This is an 79-year-old male patient of Dr. Montgomery with past medical history of coronary artery disease status post stenting, sick sinus syndrome status post permanent pacemaker, paroxysmal atrial fibrillation, hypertension. We have been asked to evaluate the patient for atrial fibrillation, possible CHF and elevated troponin. Patient was initially seen at [facility] for possible pneumonia and sepsis and transferred to [facility]. Patient is status post multiple fluid boluses and initially placed on BiPAP in the emergency center. He is now on 10L high flow oxygen. Patient states he went to the hospital due to breathing problems and cough for a couple weeks. He also complains of dyspnea at rest. He denies palpitations. He states he had right sided chest pain. Blood pressure 121/64, heart rate 100, pulse ox 96% on high flow nasal cannula at 10 L. Patient is afebrile. Patient has been started on IV antibiotics nebulizer treatments, IV Lasix 20 mg daily. Magnesium has been replaced. -EKG: Atrial fibrillation at a ventricular rate of 103 bpm -Chest x-ray: Bilateral pleural effusions. -Chest ultrasound reveals right pleural effusion pocket size 13.1 cm, left pleural effusion pocket size 2.6 cm. -Echocardiogram reveals EF 45 to 50%, mild concentric left ventricular hypertrophy, moderate pulmonary hypertension, moderate aortic stenosis with mild aortic regurgitation. -Laboratory studies: WBC 14.2, hemoglobin 10.9. INR 1.5. BUN initially 68 now 76 and creatinine initially 1.64 with repeat at 1.44. Potassium 3.3. Troponin 0.096, 0.184 and 0.012. -Home cardiac medications: Atorvastatin 40 mg at bedtime, Lasix 20 mg daily, losartan 25 mg daily, Ranexa 500 mg twice daily, Xarelto 15 mg at bedtime, patient is also on ferrous sulfate and Proscar. 12/27 Patient seen and examined. Yesterday, patient underwent thoracentesis on the right with removal of 600 mL of fluid. Patient states his breathing is not better today. He denies chest pain, no fever or chills. He is not eating very much. Blood pressure 111/72, heart rate 83, pulse ox 98% on 8 L nasal cannula. Repeat blood work reveals hemoglobin 10.5, BUN 22 creatinine 0.94, potassium 3.2. Physical examination: Gen: This is an 79-year-old male in no acute respiratory distress. VS: reviewed HEENT: Head is atraumatic, normocephalic. Pupils equal, round. Sclerae is anicteric. NECK: Supple. No JVD. LUNGS: Diminished breath sounds bilaterally. No intercostal retractions. HEART: Regular rate and rhythm. No murmur. ABDOMEN: Soft No tenderness. EXTREMITIES: No pedal edema. No calf tenderness. NEUROLOGICAL: Patient is awake, alert. Assessment: Acute hypoxic respiratory failure multifactorial due to pneumonia most likely with elevated procalcitonin, possible component of acute systolic heart failure Possible pneumonia on IV antibiotics Bilateral pleural effusions, right greater than left with exudative and fluid on thoracentesis not consistent with heart failure. Acute kidney injury NSTEMI, type II secondary to sepsis Valvular heart disease with moderate aortic stenosis and mild aortic regurgitation Moderate pulmonary hypertension CAD with previous stenting Sick sinus syndrome status post permanent pacemaker Paroxysmal atrial fibrillation Hypertension Plan: Continue current cardiac medications Xarelto has been resumed 12/27 Hold losartan due to abnormal renal function Continue patient on IV Lasix 20 mg daily Check pleural fluid analysis to rule out cancer versus pneumonia or other underlying cause of pleural effusions Obtain sed rate and CRP Monitor BETZY, daily weights, electrolytes and renal function Interrogate pacemaker Further recommendations to follow based upon clinical course Nurse practitioner note has been reviewed, I agree with documented findings and plan of care. Patient was seen and examined. Objective - Vital Signs Vital signs: Vital Signs Temp 98 F 12/27/24 08:00 Pulse 86 12/27/24 09:35 Resp 16 12/27/24 08:00 BP 111/72 12/27/24 08:00 Pulse Ox 98 12/27/24 09:17 FiO2 60 12/26/24 07:32 Intake & Output 12/26/24 12/27/24 12/27/24 18:59 06:59 18:59 Intake Total 180 Output Total 1400 250 550 Balance -1220 -250 -550 Weight 75.5 kg Intake: Oral 180 Output: Urine 1400 250 550 Other: Voiding Method Diaper Diaper Diaper External Catheter External Catheter External Catheter # Voids 200 # Bowel Movements 1 - Labs CBC & Chem 7: 12/27/24 07:02 12/27/24 07:02 Labs: Abnormal Lab Results - Last 24 Hours (Table) 12/26/24 12/26/24 12/26/24 Range/Units 06:27 11:17 11:40 WBC (3.8-10.6) k/uL RBC (4.30-5.90) m/uL Hgb (13.0-17.5) gm/dL Hct (39.0-53.0) % MCHC (31.0-37.0) g/dL RDW (11.5-15.5) % Neutrophils # (1.3-7.7) k/uL Potassium (3.5-5.1) mmol/L BUN (9-20) mg/dL Glucose (74-99) mg/dL POC Glucose (mg/dL) 223 H (70-110) mg/dL Total Protein 5.3 L (6.3-8.2) g/dL Fluid Appearance Clumped A (Clear) 12/26/24 12/26/24 12/27/24 Range/Units 16:07 20:23 06:19 WBC (3.8-10.6) k/uL RBC (4.30-5.90) m/uL Hgb (13.0-17.5) gm/dL Hct (39.0-53.0) % MCHC (31.0-37.0) g/dL RDW (11.5-15.5) % Neutrophils # (1.3-7.7) k/uL Potassium (3.5-5.1) mmol/L BUN (9-20) mg/dL Glucose (74-99) mg/dL POC Glucose (mg/dL) 235 H 204 H 181 H (70-110) mg/dL Total Protein (6.3-8.2) g/dL Fluid Appearance (Clear) 12/27/24 12/27/24 Range/Units 07:02 07:02 WBC 15.0 H (3.8-10.6) k/uL RBC 3.78 L (4.30-5.90) m/uL Hgb 10.5 L (13.0-17.5) gm/dL Hct 33.9 L (39.0-53.0) % MCHC 30.9 L (31.0-37.0) g/dL RDW 15.9 H (11.5-15.5) % Neutrophils # 13.5 H (1.3-7.7) k/uL Potassium 3.2 L (3.5-5.1) mmol/L BUN 66 H (9-20) mg/dL Glucose 162 H (74-99) mg/dL POC Glucose (mg/dL) (70-110) mg/dL Total Protein (6.3-8.2) g/dL Fluid Appearance (Clear) Microbiology - Last 24 Hours (Table) 12/26/24 11:40 Gram Stain - Preliminary Pleural Fluid
--- NOTE | 2024-12-27 15:57 | P.PN ---
Subjective Progress Note Date: 12/27/24 This is an 79year-old white male with history of multiple medical problems including diabetes, coronary artery disease, history of congestive heart failure, dyslipidemia, patient was transferred today from [facility] for possible pneumonia and sepsis. Patient presented to the ER with shortness of breath, abnormal chest x-ray showing bilateral pleural effusions patient was noted to have low blood pressure upon his initial evaluation, patient was given fluid boluses at the [place] facility, and he was transferred here more fluids were given. I saw the patient in the ER, patient is on BiPAP, 10/05, patient is already feeling comfortable, he is hemodynamically stable, and I felt that the patient could be admitted to the cardiac floor instead of sending the patient to the ICU. Patient is already receiving broad-spectrum antibiotics, and again his chest x-ray is more suggestive of pulmonary edema underlying pneumonia is not entirely ruled out. History rm, the patient is a very poor historian, not much could be obtained from the patient himself as he seems to be confused. Looking at the chart patient already received 2 to 3 L of fluid boluses prior to my evaluation. CBC showed leukocytosis with WBC count is 14.2 hemoglobin 10.9 patient had an ABG on 50% FiO2 and BiPAP. pO2 of 66 pCO2 29 pH of 7.41. Ultrasound of the chest showed bilateral pleural effusions may have to consider diagnostic and therapeutic thoracentesis however the patient has been on Xarelto which is presently on hold. Electrolytes showed bicarb of 17 BUN of 68 creatinine 1.64 however no baseline creatinine available on this patient. In 2020, there is a report on the transesophageal echocardiogram showing mostly moderate sclerotic and decreased leaflet excursion of the aortic valve, there was also evidence of mild to moderate mitral regurgitation and his ejection fraction at the time was noted to be 50%. In the cardiology note, there is history of coronary artery disease and previous stenting of RCA history of sick sinus syndrome and permanent. Permanent pacemaker placement, he has paroxysmal atrial fibrillation hypertension and moderate severe aortic stenosis. The patient is seen today December 26, 2024 in follow-up on the selective care unit. He is currently resting in bed. Awake and alert in no acute distress. Flow nasal cannula. He has been afebrile. Hemodynamically stable. Ultrasound of the chest revealed a significant 13.1 cm pocket on the right. He did undergo thoracentesis today by Dr. Skinner with 600 mL of yellow cloudy thick fluid removed. Chest x-ray showed significant improvement. No evidence of pneumothorax. Fluid analysis, cultures and cytology pending. White count 15.3. Hemoglobin 10.9. Platelets 374. Sodium 142. Potassium 3.3. Bicarb 22. BUN 76. Creatinine 1.44. Glucose 173. He remains on cefepime and vancomycin. Remains on IV diuretics. Currently in a negative balance. The patient is seen today December 27, 2024 in follow-up on the selective care unit. He is currently resting in bed. Awake and alert in no acute distress. H e is maintaining O2 saturations in the 90s on 8 L high flow nasal cannula. He is afebrile. Hemodynamically stable. He did undergo a right sided thoracentesis yesterday. Fluid is exudate with a total protein greater than 3.6, LDH 1356. Cultures and cytology pending. White count 15.0. Hemoglobin 10.5. Platelets 356. Sodium 144. Potassium 3.2. Bicarb 27. BUN 66. Creatinine 0.94. Glucose 162. C-reactive protein 18.9. He is continued on vancomycin and cefepime. Continued on bronchodilators as needed. Remains on IV diuretics. Anticoagulated with Xarelto. Currently in a -1.4 L balance Objective - Vital Signs Vital signs: Vital Signs Temp 98 F 12/27/24 12:00 Pulse 76 12/27/24 14:00 Resp 16 12/27/24 14:00 BP 104/69 12/27/24 12:00 Pulse Ox 96 12/27/24 12:00 FiO2 60 12/26/24 07:32 Intake & Output 12/26/24 12/27/24 12/27/24 18:59 06:59 18:59 Intake Total 180 Output Total 1400 250 775 Balance -4256 -459 -734 Weight 75.5 kg Intake: Oral 180 Output: Urine 1400 250 775 Other: Voiding Method Diaper Diaper Diaper External Catheter External Catheter External Catheter # Voids 200 # Bowel Movements 1 - Exam GENERAL EXAM: Alert, weak, frail 79-year-old male, on 8 L high flow nasal cannula, comfortable in no apparent distress. HEAD: Normocephalic. EYES: Normal reaction of pupils, equal size. NOSE: Clear with pink turbinates. THROAT: No erythema or exudates. NECK: No masses, no JVD. CHEST: No chest wall deformity. LUNGS: Equal air entry with bibasilar crackles right greater than left. CVS: S1 and S2 normal with no audible murmur, regular rhythm. ABDOMEN: No hepatosplenomegaly, normal bowel sounds, no guarding or rigidity. SPINE: No scoliosis or deformity SKIN: No rashes CENTRAL NERVOUS SYSTEM: Left-sided weakness, tone is normal in all 4 extremities. EXTREMITIES: There is no peripheral edema. No clubbing, no cyanosis. Peripheral pulses are intact. - Labs CBC & Chem 7: 12/27/24 07:02 12/27/24 07:02 Labs: Abnormal Lab Results - Last 24 Hours (Table) 12/26/24 12/26/24 12/26/24 Range/Units 06:27 11:40 16:07 WBC (3.8-10.6) k/uL RBC (4.30-5.90) m/uL Hgb (13.0-17.5) gm/dL Hct (39.0-53.0) % MCHC (31.0-37.0) g/dL RDW (11.5-15.5) % Neutrophils # (1.3-7.7) k/uL ESR (0-20) mm/Hr Potassium (3.5-5.1) mmol/L BUN (9-20) mg/dL Glucose (74-99) mg/dL POC Glucose (mg/dL) 235 H (70-110) mg/dL C-Reactive Protein (<1.0) mg/dL Total Protein 5.3 L (6.3-8.2) g/dL Fluid Appearance Clumped A (Clear) 12/26/24 12/27/24 12/27/24 Range/Units 20:23 06:19 07:02 WBC (3.8-10.6) k/uL RBC (4.30-5.90) m/uL Hgb (13.0-17.5) gm/dL Hct (39.0-53.0) % MCHC (31.0-37.0) g/dL RDW (11.5-15.5) % Neutrophils # (1.3-7.7) k/uL ESR (0-20) mm/Hr Potassium 3.2 L (3.5-5.1) mmol/L BUN 66 H (9-20) mg/dL Glucose 162 H (74-99) mg/dL POC Glucose (mg/dL) 204 H 181 H (70-110) mg/dL C-Reactive Protein (<1.0) mg/dL Total Protein (6.3-8.2) g/dL Fluid Appearance (Clear) 12/27/24 12/27/24 12/27/24 Range/Units 07:02 07:02 07:02 WBC 15.0 H (3.8-10.6) k/uL RBC 3.78 L (4.30-5.90) m/uL Hgb 10.5 L (13.0-17.5) gm/dL Hct 33.9 L (39.0-53.0) % MCHC 30.9 L (31.0-37.0) g/dL RDW 15.9 H (11.5-15.5) % Neutrophils # 13.5 H (1.3-7.7) k/uL ESR 26 H (0-20) mm/Hr Potassium (3.5-5.1) mmol/L BUN (9-20) mg/dL Glucose (74-99) mg/dL POC Glucose (mg/dL) (70-110) mg/dL C-Reactive Protein 18.9 H (<1.0) mg/dL Total Protein (6.3-8.2) g/dL Fluid Appearance (Clear) 12/27/24 Range/Units 11:34 WBC (3.8-10.6) k/uL RBC (4.30-5.90) m/uL Hgb (13.0-17.5) gm/dL Hct (39.0-53.0) % MCHC (31.0-37.0) g/dL RDW (11.5-15.5) % Neutrophils # (1.3-7.7) k/uL ESR (0-20) mm/Hr Potassium (3.5-5.1) mmol/L BUN (9-20) mg/dL Glucose (74-99) mg/dL POC Glucose (mg/dL) 229 H (70-110) mg/dL C-Reactive Protein (<1.0) mg/dL Total Protein (6.3-8.2) g/dL Fluid Appearance (Clear) Microbiology - Last 24 Hours (Table) 12/26/24 11:40 Gram Stain - Preliminary Pleural Fluid Assessment and Plan Assessment: Acute hypoxic respiratory failure secondary to bilateral pleural effusions, suspect acute systolic congestive heart failure. Right-sided thoracentesis performed December 26, 2024 with 600 mL of cloudy thick yellow fluid returned. Fluid is exudate. Cultures and cytology pending. Possible underlying bacterial pneumonia. Procalcitonin 20.3. Continued on vancomycin and cefepime Moderate aortic stenosis Mild mitral regurgitation History of coronary artery disease and previous stent placement History of sick sinus syndrome Chronic atrial fibrillation Plan: The patient was seen and evaluated Labs and medications reviewed Currently on 8 L high flow nasal cannula Titrate down the FiO2 as tolerated Pleural fluid is an exudate, culture and cytology pending Continued on vancomycin and cefepime Continue scheduled bronchodilators Continue diuretics Continue Xarelto We will continue to follow I have personally seen and examined the patient, performed the documentation and the assessment and plan as written. Number of minutes spent on the visit: 10 Dictation was produced using [employer] dictation software. Please excuse any grammatical, word or spelling errors..
--- NOTE | 2024-12-27 16:18 | P.PN ---
Subjective Progress Note Date: 12/27/24 Principal diagnosis: Reason for follow-up is elevated procalcitonin/pneumonia Patient is a 79-year-old male with a past medical history significant for diabetes mellitus hypertension hyperlipidemia atrial fibrillation skin cancer presenting to the hospital for evaluation of increasing shortness of breath patient did have bilateral effusion status post thoracocentesis on the right size did have elevated Pro-Flex concerning for pneumonia prompting this consultation. On today's evaluation that is 12/27/2024,the patient denies any fever or any chills, patient is breathing slightly comfortably currently on 8 L current oxygen, the patient denies chest pain or any worsening cough, patient denies abdominal pain, no nausea vomiting or diarrhea. Patient white count is 15,000, creatinine 0.94 pleural fluid cultures currently pending. Objective - Vital Signs Vital signs: Vital Signs Temp 98 F 12/27/24 08:00 Pulse 86 12/27/24 09:35 Resp 16 12/27/24 08:00 BP 111/72 12/27/24 08:00 Pulse Ox 98 12/27/24 09:17 FiO2 60 12/26/24 07:32 Intake & Output 12/26/24 12/27/24 12/27/24 18:59 06:59 18:59 Intake Total 180 Output Total 1400 250 550 Balance -1220 -250 -550 Weight 75.5 kg Intake: Oral 180 Output: Urine 1400 250 550 Other: Voiding Method Diaper Diaper Diaper External Catheter External Catheter External Catheter # Voids 200 # Bowel Movements 1 - Exam GENERAL DESCRIPTION: An elderly male lying in bed in no distress RESPIRATORY SYSTEM: Unlabored breathing , decreased breath sounds at bases HEART: S1 S2 regular rate and rhythm , ABDOMEN: Soft , no tenderness EXTREMITIES: No edema feet - Labs CBC & Chem 7: 12/27/24 07:02 12/27/24 07:02 Labs: Abnormal Lab Results - Last 24 Hours (Table) 12/26/24 12/26/24 12/26/24 Range/Units 06:27 11:40 16:07 WBC (3.8-10.6) k/uL RBC (4.30-5.90) m/uL Hgb (13.0-17.5) gm/dL Hct (39.0-53.0) % MCHC (31.0-37.0) g/dL RDW (11.5-15.5) % Neutrophils # (1.3-7.7) k/uL Potassium (3.5-5.1) mmol/L BUN (9-20) mg/dL Glucose (74-99) mg/dL POC Glucose (mg/dL) 235 H (70-110) mg/dL C-Reactive Protein (<1.0) mg/dL Total Protein 5.3 L (6.3-8.2) g/dL Fluid Appearance Clumped A (Clear) 12/26/24 12/27/24 12/27/24 Range/Units 20:23 06:19 07:02 WBC (3.8-10.6) k/uL RBC (4.30-5.90) m/uL Hgb (13.0-17.5) gm/dL Hct (39.0-53.0) % MCHC (31.0-37.0) g/dL RDW (11.5-15.5) % Neutrophils # (1.3-7.7) k/uL Potassium 3.2 L (3.5-5.1) mmol/L BUN 66 H (9-20) mg/dL Glucose 162 H (74-99) mg/dL POC Glucose (mg/dL) 204 H 181 H (70-110) mg/dL C-Reactive Protein (<1.0) mg/dL Total Protein (6.3-8.2) g/dL Fluid Appearance (Clear) 12/27/24 12/27/24 12/27/24 Range/Units 07:02 07:02 11:34 WBC 15.0 H (3.8-10.6) k/uL RBC 3.78 L (4.30-5.90) m/uL Hgb 10.5 L (13.0-17.5) gm/dL Hct 33.9 L (39.0-53.0) % MCHC 30.9 L (31.0-37.0) g/dL RDW 15.9 H (11.5-15.5) % Neutrophils # 13.5 H (1.3-7.7) k/uL Potassium (3.5-5.1) mmol/L BUN (9-20) mg/dL Glucose (74-99) mg/dL POC Glucose (mg/dL) 229 H (70-110) mg/dL C-Reactive Protein 18.9 H (<1.0) mg/dL Total Protein (6.3-8.2) g/dL Fluid Appearance (Clear) Microbiology - Last 24 Hours (Table) 12/26/24 11:40 Gram Stain - Preliminary Pleural Fluid Assessment and Plan (1) Pleural effusion Current Visit: Yes Status: Acute Code(s): J90 - PLEURAL EFFUSION, NOT ELSEWHERE CLASSIFIED SNOMED Code(s): 83236922 (2) Pneumonia Current Visit: Yes Status: Acute Code(s): J18.9 - PNEUMONIA, UNSPECIFIED ORGANISM SNOMED Code(s): 725187678 Plan: 1patient presented to hospital with increasing shortness of breath cough and this patient did have evidence of bilateral effusion patient also have elevated procalcitonin concerning for possible pneumonia with a parapneumonic effusion. 2patient is status post thoracocentesis and the fluid has been sent for culture which are currently pending 3patient currently be treated vancomycin and cefepime while waiting for the culture to finalize. Dictation was produced using [employer] dictation software. please excuse any grammatical, word or spelling errors. Time with Patient: Less than 30
[2024-12-27 17:00] LABS: Glucose,Whole Blood 151 mg/dL (70-110)
[2024-12-27] MEDS: POTASSIUM CHLORIDE ER 20 MEQ TAB.ER PO STA (17:15)
[2024-12-27] MEDS: CEFEPIME 2 GM in SODIUM CHLORIDE 0.9% 100 ML IVPB SCH (17:15)
[2024-12-27] MEDS: IPRATROPIUM-ALBUTEROL 3 ML NEB INHALATION SCH (18:39)
[2024-12-27 19:51] LABS: Glucose,Whole Blood 170 mg/dL (70-110)
[2024-12-27] MEDS: VANCOMYCIN 1,500 MG in SODIUM CHLORIDE 0.9% 500 ML 500 ML IVPB SCH (23:44)
--- NOTE | 2024-12-28 02:53 | P.PN ---
Subjective Progress Note Date: 12/27/24 This is a 79-year-old male who presented to the emergency department as a transfer from [facility] with significant shortness of breath on BiPAP with concerns of CHF exacerbation as well as possible pneumonia. Patient has been started on antibiotics in the form of cefepime and vancomycin. Will obtain procalcitonin. Pulmonary patients transporter has been consulted as patient will likely be going to ICU dependent on BiPAP currently. Patient's FiO2 is 50% with a PEEP of 5. Chest x-ray showing bilateral pleural effusions and there is discussion of the possible need for thoracentesis. On admission here, white count is elevated at 14.2, hemoglobin is stable at 10.9, platelets are 369, ABG shows a pH of 7.41, pCO2 is 29, pO2 66, bicarb is 18, sodium 141 with a potassium of 3.7, BUN 68 and creatinine up at 1.64, glucose 138, lactic acid 3.9, magnesium 1.5, troponin 0.096, BNP is 4230. Patient again being admitted to the ICU with pulmonary patients transporter as well as cardiology on consult. 2D echo is ordered and pending at this time. 12/27/2024 Patient is seen in follow-up today with multiple consultations following including pulmonary, infectious disease, cardiology. Patient continues on BiPAP and transitioning to high flow oxygen at 10 L. Patient resides at [facility] and will be returning there on discharge. Apparently patient does not wear oxygen at the ECF. Weaning as tolerated and patient is also status post thoracentesis on the right with pulmonary today at bedside. Will await cultures and patient also maintained on antibiotics in the form of cefepime and vancomycin with infectious disease following. REVIEW OF SYSTEMS: Unable to completely assess as patient is lethargic The rest of the 14-point review of systems is negative. PHYSICAL EXAMINATION: GENERAL: The patient is alert and oriented x1-2, lethargic, somewhat arousable although fatigues easily. A little more awake today, maintained on liters high flow, well developed, elderly appearing, ill-appearing HEENT: Pupils are round and equally reacting to light. EOMI. No scleral icterus. No conjunctival pallor. Normocephalic, atraumatic. No pharyngeal erythema. No thyromegaly. CARDIOVASCULAR: S1 and S2 muffled PULMONARY: Diminished breath sounds bilaterally with some scattered expiratory wheezing as well as crackles noted at the bases. ABDOMEN: Soft, nontender, nondistended, normoactive bowel sounds. No palpable organomegaly. MUSCULOSKELETAL: No joint swelling or deformity. EXTREMITIES: No cyanosis, clubbing, or pedal edema. NEUROLOGICAL: Gross neurological examination did not reveal any focal deficits. Diffusely weak SKIN: No rashes. Assessment: Shortness of breath, multifactorial with concerns of possible CHF exacerbation, bilateral pleural effusions, greater on the right as well as possible pneumonia Leukocytosis with tachycardia and elevated white count, sepsis, present on adm ission secondary to pneumonia Elevated troponin, 0.096, possibly type II secondary to CHF exacerbation as well as infection Lactic acidosis secondary to sepsis Elevated kidney functions, acute renal failure Acute systolic heart failure with an EF of 40 to 45% Hypomagnesemia, replaced and improving History of atrial fibrillation Bilateral pleural effusions, status post thoracentesis on the right with approximately 600 mL removed, exudative and thick, empyema History of coronary artery disease with previous stenting Diabetes mellitus, type II, insulin-dependent History of sick sinus syndrome, status post permanent pacemaker previously Hyperlipidemia Hypertension Former tobacco use GI prophylaxis DVT prophylaxis Full code Plan: Patient was sent here from [facility] for further evaluation on BiPAP, slightly improving and has transitioned off BiPAP currently on 8 L high flow. A pparently patient lives at [facility] and does not wear oxygen outpatient. Continue to wean FiO2 as tolerated. Recommend incentive spirometer as well. Cardiology and pulmonary following as patient is BiPAP dependent with concerns of sepsis, present on admission. Patient is continued on cefepime as well as vancomycin, infectious disease following and cultures are pending at this time. Patient is status post thoracentesis and specimen was sent and pending at this time. Right side thoracentesis with approximately 600 mL removed of exudative thick yellow fluid Patient is a diabetic and will continue Accu-Cheks before meals and at bedtime as well as 2 AM and sliding scale. 2D echo shows an EF of 40 to 45% with moderate aortic stenosis and mild aortic regurgitation noted along with moderate pulmonary hypertension Appropriate home medications have been reviewed and resumed Pacemaker interrogated with cardiology following, continue IV Lasix daily and will monitor kidney functions and electrolytes closely. BNP was 4990 Follow-up on repeat labs and replace electrolytes per protocol. Case management following and plan will be to return to [facility] on discharge where he resides. The impression and plan of care has been dictated by Nikki Joseph, Nurse Practitioner as directed. Dr. Petros MD I have performed a history and examination and MDM of this patient, discussed the same with the dictator, and agree with the dictator's assessment and plan as written ,documented as a scribe. Based on total visit time, I have performed more than 50% of the visit. Objective - Vital Signs Vital signs: Vital Signs Temp 98 F 12/27/24 08:00 Pulse 86 12/27/24 09:35 Resp 16 12/27/24 08:00 BP 111/72 12/27/24 08:00 Pulse Ox 98 12/27/24 09:17 FiO2 60 12/26/24 07:32 Intake & Output 12/26/24 12/27/24 12/27/24 18:59 06:59 18:59 Intake Total 180 Output Total 1400 250 550 Balance -1220 -250 -550 Weight 75.5 kg Intake: Oral 180 Output: Urine 1400 250 550 Other: Voiding Method Diaper Diaper Diaper External Catheter External Catheter External Catheter # Voids 200 # Bowel Movements 1 - Labs CBC & Chem 7: 12/27/24 07:02 12/27/24 07:02 Labs: Abnormal Lab Results - Last 24 Hours (Table) 12/26/24 12/26/24 12/26/24 Range/Units 06:27 11:17 11:40 WBC (3.8-10.6) k/uL RBC (4.30-5.90) m/uL Hgb (13.0-17.5) gm/dL Hct (39.0-53.0) % MCHC (31.0-37.0) g/dL RDW (11.5-15.5) % Neutrophils # (1.3-7.7) k/uL Potassium (3.5-5.1) mmol/L BUN (9-20) mg/dL Glucose (74-99) mg/dL POC Glucose (mg/dL) 223 H (70-110) mg/dL Total Protein 5.3 L (6.3-8.2) g/dL Fluid Appearance Clumped A (Clear) 12/26/24 12/26/24 12/27/24 Range/Units 16:07 20:23 06:19 WBC (3.8-10.6) k/uL RBC (4.30-5.90) m/uL Hgb (13.0-17.5) gm/dL Hct (39.0-53.0) % MCHC (31.0-37.0) g/dL RDW (11.5-15.5) % Neutrophils # (1.3-7.7) k/uL Potassium (3.5-5.1) mmol/L BUN (9-20) mg/dL Glucose (74-99) mg/dL POC Glucose (mg/dL) 235 H 204 H 181 H (70-110) mg/dL Total Protein (6.3-8.2) g/dL Fluid Appearance (Clear) 12/27/24 12/27/24 Range/Units 07:02 07:02 WBC 15.0 H (3.8-10.6) k/uL RBC 3.78 L (4.30-5.90) m/uL Hgb 10.5 L (13.0-17.5) gm/dL Hct 33.9 L (39.0-53.0) % MCHC 30.9 L (31.0-37.0) g/dL RDW 15.9 H (11.5-15.5) % Neutrophils # 13.5 H (1.3-7.7) k/uL Potassium 3.2 L (3.5-5.1) mmol/L BUN 66 H (9-20) mg/dL Glucose 162 H (74-99) mg/dL POC Glucose (mg/dL) (70-110) mg/dL Total Protein (6.3-8.2) g/dL Fluid Appearance (Clear) Microbiology - Last 24 Hours (Table) 12/26/24 11:40 Gram Stain - Preliminary Pleural Fluid
[2024-12-28 05:40] LABS: Glucose,Whole Blood 172 mg/dL (70-110)
[2024-12-28 07:23] LABS: Basophils % (A) 0 %; Eosinophils % (A) 0 %; HGB 11.4 gm/dL (13.0-17.5); Hypochromasia Moderate; Lymphocytes % (A) 7 %; MCH 27.8 pg (25.0-35.0); MCHC 30.7 g/dL (31.0-37.0); MCV 90.4 fL (80.0-100.0); Mean Platelet Volume 7.4; Monocytes # (A) 0.5 k/uL (0-1.0); Monocytes % (A) 3 %; Neutrophils # (A) 13.1 k/uL (1.3-7.7); Neutrophils % (A) 89 %; Platelet Count 374 k/uL (150-450); RBC 4.09 m/uL (4.30-5.90); RDW 15.9 % (11.5-15.5); WBC 14.7 k/uL (3.8-10.6)
[2024-12-28 07:45] LABS: African American GFR (CKD) >90 (>60 ml/min/1.73 sqM); Anion Gap 11 mmol/L; Blood Urea Nitrogen 55 mg/dL (9-20); Calcium 8.8 mg/dL (8.4-10.2); Carbon Dioxide 27 mmol/L (22-30); Chloride 107 mmol/L (98-107); Glucose 176 mg/dL (74-99); Non-African American GFR(CKD) 87 (>60 ml/min/1.73 sqM); Potassium 3.6 mmol/L (3.5-5.1); Sodium 145 mmol/L (137-145)
[2024-12-28 11:26] LABS: Glucose,Whole Blood 233 mg/dL (70-110)
--- NOTE | 2024-12-28 13:48 | P.PN ---
Subjective Progress Note Date: 12/28/24 Reason for Consult (text): Atrial fibrillation, possible CHF, elevated troponin History of present illness: This is an 79-year-old male patient of Dr. Montgomery with past medical history of coronary artery disease status post stenting, sick sinus syndrome status post permanent pacemaker, paroxysmal atrial fibrillation, hypertension. We have been asked to evaluate the patient for atrial fibrillation, possible CHF and elevated troponin. Patient was initially seen at [facility] for possible pneumonia and sepsis and transferred to [facility]. Patient is status post multiple fluid boluses and initially placed on BiPAP in the emergency center. He is now on 10L high flow oxygen. Patient states he went to the hospital due to breathing problems and cough for a couple weeks. He also complains of dyspnea at rest. He denies palpitations. He states he had right sided chest pain. Blood pressure 121/64, heart rate 100, pulse ox 96% on high flow nasal cannula at 10 L. Patient is afebrile. Patient has been started on IV antibiotics nebulizer treatments, IV Lasix 20 mg daily. Magnesium has been replaced. -EKG: Atrial fibrillation at a ventricular rate of 103 bpm -Chest x-ray: Bilateral pleural effusions. -Chest ultrasound reveals right pleural effusion pocket size 13.1 cm, left pleural effusion pocket size 2.6 cm. -Echocardiogram reveals EF 45 to 50%, mild concentric left ventricular hypertrophy, moderate pulmonary hypertension, moderate aortic stenosis with mild aortic regurgitation. -Laboratory studies: WBC 14.2, hemoglobin 10.9. INR 1.5. BUN initially 68 now 76 and creatinine initially 1.64 with repeat at 1.44. Potassium 3.3. Troponin 0.096, 0.184 and 0.012. -Home cardiac medications: Atorvastatin 40 mg at bedtime, Lasix 20 mg daily, losartan 25 mg daily, Ranexa 500 mg twice daily, Xarelto 15 mg at bedtime, patient is also on ferrous sulfate and Proscar. 12/27 Patient seen and examined. Yesterday, patient underwent thoracentesis on the right with removal of 600 mL of fluid. Patient states his breathing is not better today. He denies chest pain, no fever or chills. He is not eating very much. Blood pressure 111/72, heart rate 83, pulse ox 98% on 8 L nasal cannula. Repeat blood work reveals hemoglobin 10.5, BUN 22 creatinine 0.94, potassium 3.2. 12/28 Patient seen and examined. Blood pressure 124/78, heart rate 111, pulse ox 94% on 5 L nasal cannula. Repeat blood work reveals WBC 14.7, hemoglobin 11.4. BUN 55 creatinine 0.72. Sed rate 26, CRP 18.9. Cytology from pleural fluid is pending. Patient has been maintained on IV Lasix 20 mg daily. Weights are unchanged. No med changes today. Physical examination: Gen: This is an 79-year-old male in no acute respiratory distress. VS: reviewed HEENT: Head is atraumatic, normocephalic. Pupils equal, round. Sclerae is anicteric. NECK: Supple. No JVD. LUNGS: Diminished breath sounds bilaterally. No intercostal retractions. HEART: Regular rate and rhythm. No murmur. ABDOMEN: Soft No tenderness. EXTREMITIES: No pedal edema. No calf tenderness. NEUROLOGICAL: Patient is awake, alert. Assessment: Acute hypoxic respiratory failure multifactorial due to pneumonia most likely with elevated procalcitonin, possible component of acute systolic heart failure Possible pneumonia on IV antibiotics Bilateral pleural effusions, right greater than left with exudative and fluid on thoracentesis not consistent with heart failure. Acute kidney injury NSTEMI, type II secondary to sepsis Valvular heart disease with moderate aortic stenosis and mild aortic regurgitation Moderate pulmonary hypertension CAD with previous stenting Sick sinus syndrome status post permanent pacemaker Paroxysmal atrial fibrillation Hypertension Plan: Continue current cardiac medications Xarelto has been resumed 12/27 Hold losartan due to abnormal renal function Continue patient on IV Lasix 20 mg daily Check pleural fluid analysis to rule out cancer versus pneumonia or other underlying cause of pleural effusions Monitor BETZY, daily weights, electrolytes and renal function Further recommendations to follow based upon clinical course Nurse practitioner note has been reviewed, I agree with documented findings and plan of care. Patient was seen and examined. Objective - Vital Signs Vital signs: Vital Signs Temp 98.3 F 12/28/24 08:00 Pulse 110 H 12/28/24 12:45 Resp 16 12/28/24 12:00 BP 124/78 12/28/24 12:00 Pulse Ox 94 L 12/28/24 12:00 FiO2 60 12/26/24 07:32 Intake & Output 12/27/24 12/28/24 12/28/24 18:59 06:59 18:59 Intake Total 1260 480 Output Total 775 700 850 Balance -775 560 -370 Weight 75.5 kg Intake: Intake, IV Titration 600 Amount Cefepime 2 gm In Sodium 100 Chloride 0.9% 100 ml @ 25 mls/hr IVPB Q8HR [facility] Rx# :[id number] Vancomycin 1,500 mg In 500 Sodium Chloride 0.9% 500 ml 500 ml @ 167 mls/hr IVPB Q16H [facility] Rx#: [id number] Oral 660 480 Output: Urine 775 700 850 Other: Voiding Method Diaper Diaper External Catheter External Catheter External Catheter # Bowel Movements 1 - Labs CBC & Chem 7: 12/28/24 06:10 12/28/24 06:10 Labs: Abnormal Lab Results - Last 24 Hours (Table) 12/27/24 12/27/24 12/27/24 Range/Units 07:02 16:58 19:48 WBC (3.8-10.6) k/uL RBC (4.30-5.90) m/uL Hgb (13.0-17.5) gm/dL Hct (39.0-53.0) % MCHC (31.0-37.0) g/dL RDW (11.5-15.5) % Neutrophils # (1.3-7.7) k/uL ESR 26 H (0-20) mm/Hr BUN (9-20) mg/dL Glucose (74-99) mg/dL POC Glucose (mg/dL) 151 H 170 H (70-110) mg/dL 12/28/24 12/28/24 12/28/24 Range/Units 05:38 06:10 06:10 WBC 14.7 H (3.8-10.6) k/uL RBC 4.09 L (4.30-5.90) m/uL Hgb 11.4 L (13.0-17.5) gm/dL Hct 37.0 L (39.0-53.0) % MCHC 30.7 L (31.0-37.0) g/dL RDW 15.9 H (11.5-15.5) % Neutrophils # 13.1 H (1.3-7.7) k/uL ESR (0-20) mm/Hr BUN 55 H (9-20) mg/dL Glucose 176 H (74-99) mg/dL POC Glucose (mg/dL) 172 H (70-110) mg/dL 12/28/24 Range/Units 11:24 WBC (3.8-10.6) k/uL RBC (4.30-5.90) m/uL Hgb (13.0-17.5) gm/dL Hct (39.0-53.0) % MCHC (31.0-37.0) g/dL RDW (11.5-15.5) % Neutrophils # (1.3-7.7) k/uL ESR (0-20) mm/Hr BUN (9-20) mg/dL Glucose (74-99) mg/dL POC Glucose (mg/dL) 233 H (70-110) mg/dL Microbiology - Last 24 Hours (Table) 12/26/24 11:40 Gram Stain - Preliminary Pleural Fluid Body Fluid Culture - Preliminary 12/26/24 11:40 Acid Fast Bacilli Smear - Preliminary Pleural Fluid
--- NOTE | 2024-12-28 14:41 | P.PN ---
Subjective Progress Note Date: 12/28/24 Principal diagnosis: Acute hypoxic respiratory failure with bilateral pleural effusions, possible acute systolic congestive heart failure, underlying pneumonia is also a consideration with procalcitonin level of 20.3 This is an 79year-old white male with history of multiple medical problems including diabetes, coronary artery disease, history of congestive heart failure, dyslipidemia, patient was transferred today from [facility] for possible pneumonia and sepsis. Patient presented to the ER with shortness of breath, abnormal chest x-ray showing bilateral pleural effusions patient was noted to have low blood pressure upon his initial evaluation, patient was given fluid boluses at the [place] facility, and he was transferred here more fluids were given. I saw the patient in the ER, patient is on BiPAP, 10/05, patient is already feeling comfortable, he is hemodynamically stable, and I felt that the patient could be admitted to the cardiac floor instead of sending the patient to the ICU. Patient is already receiving broad-spectrum antibiotics, and again his chest x-ray is more suggestive of pulmonary edema underlying pneumonia is not entirely ruled out. History rm, the patient is a very poor historian, not much could be obtained from the patient himself as he seems to be confused. Looking at the chart patient already received 2 to 3 L of fluid boluses prior to my evaluation. CBC showed leukocytosis with WBC count is 14.2 hemoglobin 10.9 patient had an ABG on 50% FiO2 and BiPAP. pO2 of 66 pCO2 29 pH of 7.41. Ultrasound of the chest showed bilateral pleural effusions may have to consider diagnostic and therapeutic thoracentesis however the patient has been on Xarelto which is presently on hold. Electrolytes showed bicarb of 17 BUN of 68 creatinine 1.64 however no baseline creatinine available on this patient. In 2020, there is a report on the transesophageal echocardiogram showing mostly moderate sclerotic and decreased leaflet excursion of the aortic valve, there was also evidence of mild to moderate mitral regurgitation and his ejection fraction at the time was noted to be 50%. In the cardiology note, there is history of coronary artery disease and previous stenting of RCA history of sick sinus syndrome and permanent. Permanent pacemaker placement, he has paroxysmal atrial fibrillation hypertension and moderate severe aortic stenosis. The patient is seen today December 26, 2024 in follow-up on the selective care unit. He is currently resting in bed. Awake and alert in no acute distress. Flow nasal cannula. He has been afebrile. Hemodynamically stable. Ultrasound of the chest revealed a significant 13.1 cm pocket on the right. He did undergo thoracentesis today by Dr. Skinner with 600 mL of yellow cloudy thick fluid removed. Chest x-ray showed significant improvement. No evidence of pneumothorax. Fluid analysis, cultures and cytology pending. White count 15.3. Hemoglobin 10.9. Platelets 374. Sodium 142. Potassium 3.3. Bicarb 22. BUN 76. Creatinine 1.44. Glucose 173. He remains on cefepime and vancomycin. Remains on IV diuretics. Currently in a negative balance. The patient is seen today December 27, 2024 in follow-up on the selective care unit. He is currently resting in bed. Awake and alert in no acute distress. He is maintaining O2 saturations in the 90s on 8 L high flow nasal cannula. He is afebrile. Hemodynamically stable. He did undergo a right sided thoracen tesis yesterday. Fluid is exudate with a total protein greater than 3.6, LDH 1356. Cultures and cytology pending. White count 15.0. Hemoglobin 10.5. Platelets 356. Sodium 144. Potassium 3.2. Bicarb 27. BUN 66. Creatinine 0.94. Glucose 162. C-reactive protein 18.9. He is continued on vancomycin and cefepime. Continued on bronchodilators as needed. Remains on IV diuretics. Anticoagulated with Xarelto. Currently in a -1.4 L balance Patient was seen today on 12/28/2024, patient does feel better compared to how he felt when he came in, he is now on 5 L nasal cannula with O2 sat of 94% he is hemodynamically stable, not in any distress. Cytology on the pleural effusion is still pending however, the pleural effusion is quite exudative in nature actually highly suspicious for infection and/or malignancy. Protein was high, glucose was very low, and LDH is extremely high. Gram stain of the fluid is negative and no organisms noted and AFB stain is negative. Considering the sig nificant abnormality on the pleural effusion, I will recommend a CT of the chest on this patient, and the fluid may be prone to develop loculation, and the patient may have to be considered for a pigtail catheter. In the meantime remains on vancomycin and cefepime. Objective - Vital Signs Vital signs: Vital Signs Temp 98.3 F 12/28/24 08:00 Pulse 110 H 12/28/24 12:45 Resp 16 12/28/24 12:00 BP 124/78 12/28/24 12:00 Pulse Ox 94 L 12/28/24 12:00 FiO2 60 12/26/24 07:32 Intake & Output 12/27/24 12/28/24 12/28/24 18:59 06:59 18:59 Intake Total 1260 480 Output Total 775 700 850 Balance -775 560 -370 Weight 75.5 kg Intake: Intake, IV Titration 600 Amount Cefepime 2 gm In Sodium 100 Chloride 0.9% 100 ml @ 25 mls/hr IVPB Q8HR BLUE Rx# :[id number] Vancomycin 1,500 mg In 500 Sodium Chloride 0.9% 500 ml 500 ml @ 167 mls/hr IVPB Q16H BLUE Rx#: [id number] Oral 660 480 Output: Urine 775 700 850 Other: Voiding Method Diaper Diaper External Catheter External Catheter External Catheter # Bowel Movements 1 - Exam GENERAL EXAM: Alert, weak, frail 79-year-old male, on 5 L nasal cannula HEAD: Normocephalic. EYES: Normal reaction of pupils, equal size. NOSE: Clear with pink turbinates. THROAT: No erythema or exudates. NECK: No masses, no JVD. CHEST: No chest wall deformity. LUNGS: Diminished breath sounds at the bases with crackles CVS: S1 and S2 normal with no audible murmur, regular rhythm. ABDOMEN: No hepatosplenomegaly, normal bowel sounds, no guarding or rigidity. SPINE: No scoliosis or deformity SKIN: No rashes CENTRAL NERVOUS SYSTEM: Left-sided weakness, tone is normal in all 4 extremities. EXTREMITIES: There is no peripheral edema. No clubbing, no cyanosis. Peripheral pulses are intact. - Labs CBC & Chem 7: 12/28/24 06:10 12/28/24 06:10 Labs: Abnormal Lab Results - Last 24 Hours (Table) 12/27/24 12/27/24 12/27/24 Range/Units 07:02 16:58 19:48 WBC (3.8-10.6) k/uL RBC (4.30-5.90) m/uL Hgb (13.0-17.5) gm/dL Hct (39.0-53.0) % MCHC (31.0-37.0) g/dL RDW (11.5-15.5) % Neutrophils # (1.3-7.7) k/uL ESR 26 H (0-20) mm/Hr BUN (9-20) mg/dL Glucose (74-99) mg/dL POC Glucose (mg/dL) 151 H 170 H (70-110) mg/dL 12/28/24 12/28/24 12/28/24 Range/Units 05:38 06:10 06:10 WBC 14.7 H (3.8-10.6) k/uL RBC 4.09 L (4.30-5.90) m/uL Hgb 11.4 L (13.0-17.5) gm/dL Hct 37.0 L (39.0-53.0) % MCHC 30.7 L (31.0-37.0) g/dL RDW 15.9 H (11.5-15.5) % Neutrophils # 13.1 H (1.3-7.7) k/uL ESR (0-20) mm/Hr BUN 55 H (9-20) mg/dL Glucose 176 H (74-99) mg/dL POC Glucose (mg/dL) 172 H (70-110) mg/dL 12/28/24 Range/Units 11:24 WBC (3.8-10.6) k/uL RBC (4.30-5.90) m/uL Hgb (13.0-17.5) gm/dL Hct (39.0-53.0) % MCHC (31.0-37.0) g/dL RDW (11.5-15.5) % Neutrophils # (1.3-7.7) k/uL ESR (0-20) mm/Hr BUN (9-20) mg/dL Glucose (74-99) mg/dL POC Glucose (mg/dL) 233 H (70-110) mg/dL Microbiology - Last 24 Hours (Table) 12/26/24 11:40 Gram Stain - Preliminary Pleural Fluid Body Fluid Culture - Preliminary 12/26/24 11:40 Acid Fast Bacilli Smear - Preliminary Pleural Fluid Assessment and Plan Assessment: Impression: Acute hypoxic respiratory failure Bilateral pleural effusions, exudative, possibly parapneumonic Possible pneumonia and sepsis Status post right-sided thoracentesis and there was clearly evidence of exudative pleural effusion, does not seem to be an effusion of congestive heart failure, it is either an effusion of malignancy or parapneumonic effusion, cytology is pending History of valvular heart disease/ aortic stenosis, and history of mitral regurgitation History of coronary artery disease and previous stent placement History of sick sinus syndrome Chronic atrial fibrillation Recommendation: Clinically the patient is improving but the findings and the overall picture seems to be concerning to me. Continue antibiotics, procalcitonin is quite high Awaiting the final cytology from the pleural effusion Also awaiting cultures from the pleural effusion Check CT of the chest for possible loculation of pleural effusion Consider repeat thoracentesis if the effusion is getting larger or consider placement of the pigtail catheter The elevated LDH and elevated protein with low glucose makes me concerned about the possibility developing empyema Will continue to follow Time with Patient: Less than 30
[2024-12-28 16:35] LABS: Glucose,Whole Blood 218 mg/dL (70-110)
--- NOTE | 2024-12-28 17:31 | CT ---
EXAMINATION TYPE: CT chest wo con DATE OF EXAM: 12/28/2024 5:06 PM COMPARISON: None. CLINICAL INDICATION: Male, 79 years old with history of possible empyema, Possible empyema. TECHNIQUE: Axial images were obtained at 5 mm thick sections. Reconstructed images are reviewed on g4interactive computer in the coronal plane. Contrast used: mL of , (none if empty) Oral contrast used: (none if empty) CT DLP: 372.9 mGycm, Automated exposure control for dose reduction was used. FINDINGS: Portion of the thyroid visualized is normal. Moderate bilateral pleural effusions are present. Compressive atelectasis is adjacent. Aerated lungs appear normal. No suspicious changes to suggest empyema. No suspicious mediastinal or hilar adenopathy evident. The ascending aorta diameter at the level of the main pulmonary artery is 3.8 cm. The main pulmonary artery diameter at the bifurcation is 3.[address] sections are obtained through the upper abdomen. Calcification of the neck of the gallblad esvin is present IMPRESSION: 1. Moderate bilateral pleural effusions, larger on the right. 2. No suspicious changes to suggest empyema. 3. Compressive atelectasis adjacent to the pleural fluid collections. 4. Cholelithiasis [facility], , 12/28/2024 5:29 PM
[2024-12-28 20:08] LABS: Glucose,Whole Blood 160 mg/dL (70-110)
--- NOTE | 2024-12-29 05:10 | P.PN ---
Subjective Progress Note Date: 12/28/24 This is a 79-year-old male who presented to the emergency department as a transfer from [facility] with significant shortness of breath on BiPAP with concerns of CHF exacerbation as well as possible pneumonia. Patient has been started on antibiotics in the form of cefepime and vancomycin. Will obtain procalcitonin. Pulmonary ticket scheduler has been consulted as patient will likely be going to ICU dependent on BiPAP currently. Patient's FiO2 is 50% with a PEEP of 5. Chest x-ray showing bilateral pleural effusions and there is discussion of the possible need for thoracentesis. On admission here, white count is elevated at 14.2, hemoglobin is stable at 10.9, platelets are 369, ABG shows a pH of 7.41, pCO2 is 29, pO2 66, bicarb is 18, sodium 141 with a potassium of 3.7, BUN 68 and creatinine up at 1.64, glucose 138, lactic acid 3.9, magnesium 1.5, troponin 0.096, BNP is 4230. Patient again being admitted to the ICU with pulmonary ticket scheduler as well as cardiology on consult. 2D echo is ordered and pending at this time. 12/27/2024 Patient is seen in follow-up today with multiple consultations following including pulmonary, infectious disease, cardiology. Patient continues on BiPAP and transitioning to high flow oxygen at 10 L. Patient resides at [facility] and will be returning there on discharge. Apparently patient does not wear oxygen at the ECF. Weaning as tolerated and patient is also status post thoracentesis on the right with pulmonary today at bedside. Will await cultures and patient also maintained on antibiotics in the form of cefepime and vancomycin with infectious disease following. 12/28/2024 Patient is seen in follow-up today maintained on high flow although is transitioning down from 6 L to 5 L and tolerating. Patient reports he feels slightly improved although feels significantly weak and continues with some shortness of breath. Patient reports to eating a little more and tolerating diet with no reported nausea or vomiting. Pulmonary following and CT chest is ordered for evaluation of possible reaccumulation or loculation of the pleural effusion. Patient is afebrile and maintained on IV antibiotics and will continue. Cardiology and infectious disease following as well. REVIEW OF SYSTEMS: Unable to completely assess as patient is lethargic The rest of the 14-point review of systems is negative. PHYSICAL EXAMINATION: GENERAL: The patient is alert and oriented x1-2, lethargic, slightly more awake today, maintained on 6 liters high flow, well developed, elderly appearing, ill- appearing HEENT: Pupils are round and equally reacting to light. EOMI. No scleral icterus. No conjunctival pallor. Normocephalic, atraumatic. No pharyngeal erythema. No thyromegaly. CARDIOVASCULAR: S1 and S2 muffled PULMONARY: Diminished breath sounds bilaterally with some scattered expiratory wheezing as well as crackles noted at the bases. ABDOMEN: Soft, nontender, nondistended, normoactive bowel sounds. No palpable organomegaly. MUSCULOSKELETAL: No joint swelling or deformity. EXTREMITIES: No cyanosis, clubbing, or pedal edema. NEUROLOGICAL: Gross neurological examination did not reveal any focal deficits. Diffusely weak SKIN: No rashes. Assessment: Shortness of breath, multifactorial secondary to bilateral pleural effusions, greater on the right as well as possible pneumonia, possible component of acute CHF Leukocytosis with tachycardia and elevated white count, sepsis, present on admission secondary to pneumonia Elevated troponin, 0.096, possibly type II secondary to infection Lactic acidosis secondary to sepsis Elevated kidney functions, acute renal failure Acute systolic heart failure with an EF of 40 to 45% Hypomagnesemia, replaced and improving History of atrial fibrillation Bilateral pleural effusions, status post thoracentesis on the right with approximately 600 mL removed, exudative and thick, empyema History of coronary artery disease with previous stenting Diabetes mellitus, type II, insulin-dependent History of sick sinus syndrome, status post permanent pacemaker previously Hyperlipidemia Hypertension Former tobacco use GI prophylaxis DVT prophylaxis Full code Plan: Patient was sent here from [facility] for further evaluation on BiPAP, slightly improving and has transitioned off BiPAP currently on 6 L high flow. Apparently patient lives at [facility] and does not wear oxygen outpatient. Continue to wean FiO2 as tolerated. Recommend incentive spirometer as well. Cardiology and pulmonary following as patient is BiPAP dependent with concerns of sepsis, present on admission. Patient is continued on cefepime as well as vancomycin, infectious disease following and cultures are pending at this time. Patient is status post thoracentesis and specimen was sent and pending at this time. Right side thoracentesis with approximately 600 mL removed of exudative thick yellow fluid concerning for empyema and infection, less likely CHF exacerbation per cardiology CT chest is ordered and pending per pulmonary to evaluate if pleural effusion is loculated or accumulating again and may require Pleurx catheter. Patient is a diabetic and will continue Accu-Cheks before meals and at bedtime as well as 2 AM and sliding scale. 2D echo shows an EF of 40 to 45% with moderate aortic stenosis and mild aortic regurgitation noted along with moderate pulmonary hypertension Appropriate home medications have been reviewed and resumed Pacemaker interrogated with cardiology following, continue IV Lasix daily and will monitor kidney functions and electrolytes closely. BNP was 4990 Follow-up on repeat labs and replace electrolytes per protocol. Case management following and plan will be to return to [facility] on discharge where he resides. The impression and plan of care has been dictated by Nikki Joseph, Nurse Practitioner as directed. Dr. Petros MD I have performed a history and examination and MDM of this patient, discussed the same with the dictator, and agree with the dictator's assessment and plan as written ,documented as a scribe. Based on total visit time, I have performed more than 50% of the visit. Objective - Vital Signs Vital signs: Vital Signs Temp 97.5 F L 12/29/24 03:53 Pulse 91 12/29/24 03:53 Resp 15 12/29/24 03:53 BP 132/75 12/29/24 03:53 Pulse Ox 97 12/29/24 03:53 FiO2 60 12/26/24 07:32 Intake & Output 12/28/24 12/28/24 12/29/24 06:59 18:59 06:59 Intake Total 1260 1020 100 Output Total 700 950 Balance 560 70 100 Weight 75.5 kg Intake: Intake, IV Titration 600 100 Amount Cefepime 2 gm In Sodium 100 100 Chloride 0.9% 100 ml @ 25 mls/hr IVPB Q8HR BLUE Rx# :[id number] Vancomycin 1,500 mg In 500 Sodium Chloride 0.9% 500 ml 500 ml @ 167 mls/hr IVPB Q16H BLUE Rx#: [id number] Oral 660 1020 Output: Urine 700 950 Other: Voiding Method Diaper External Catheter External Catheter External Catheter # Bowel Movements 1 - Labs CBC & Chem 7: 12/28/24 06:10 12/28/24 06:10 Labs: Abnormal Lab Results - Last 24 Hours (Table) 0212/28/24 12/28/24 Range/Units 05:38 06:10 06:10 WBC 14.7 H (3.8-10.6) k/uL RBC 4.09 L (4.30-5.90) m/uL Hgb 11.4 L (13.0-17.5) gm/dL Hct 37.0 L (39.0-53.0) % MCHC 30.7 L (31.0-37.0) g/dL RDW 15.9 H (11.5-15.5) % Neutrophils # 13.1 H (1.3-7.7) k/uL BUN 55 H (9-20) mg/dL Glucose 176 H (74-99) mg/dL POC Glucose (mg/dL) 172 H (70-110) mg/dL 12/28/24 12/28/24 12/28/24 Range/Units 11:24 16:34 20:07 WBC (3.8-10.6) k/uL RBC (4.30-5.90) m/uL Hgb (13.0-17.5) gm/dL Hct (39.0-53.0) % MCHC (31.0-37.0) g/dL RDW (11.5-15.5) % Neutrophils # (1.3-7.7) k/uL BUN (9-20) mg/dL Glucose (74-99) mg/dL POC Glucose (mg/dL) 233 H 218 H 160 H (70-110) mg/dL Microbiology - Last 24 Hours (Table) 12/26/24 11:40 Gram Stain - Preliminary Pleural Fluid Body Fluid Culture - Preliminary
[2024-12-29 06:18] LABS: Glucose,Whole Blood 167 mg/dL (70-110)
[2024-12-29 07:19] LABS: Basophils % (A) 0 %; Eosinophils % (A) 0 %; HCT 39.7 % (39.0-53.0); HGB 11.8 gm/dL (13.0-17.5); Hypochromasia Marked; Lymphocytes # (A) 1.1 k/uL (1.0-4.8); Lymphocytes % (A) 7 %; MCH 27.4 pg (25.0-35.0); MCHC 29.8 g/dL (31.0-37.0); MCV 91.9 fL (80.0-100.0); Mean Platelet Volume 7.3; Monocytes # (A) 0.7 k/uL (0-1.0); Monocytes % (A) 4 %; Neutrophils # (A) 13.8 k/uL (1.3-7.7); Neutrophils % (A) 87 %; Platelet Count 375 k/uL (150-450); RBC 4.32 m/uL (4.30-5.90); RDW 15.9 % (11.5-15.5); WBC 15.8 k/uL (3.8-10.6)
[2024-12-29 07:59] LABS: African American GFR (CKD) >90 (>60 ml/min/1.73 sqM); Anion Gap 15 mmol/L; Blood Urea Nitrogen 44 mg/dL (9-20); Carbon Dioxide 20 mmol/L (22-30); Chloride 109 mmol/L (98-107); Glucose 160 mg/dL (74-99); Magnesium 1.7 mg/dL (1.6-2.3); Non-African American GFR(CKD) >90 (>60 ml/min/1.73 sqM); Potassium 3.1 mmol/L (3.5-5.1); Sodium 144 mmol/L (137-145)
[2024-12-29] MEDS: VANCOMYCIN TROUGH DUE 1 EACH MISC MISCELLANE ONE (08:04)
[2024-12-29] MEDS ORDERED: Potassium Replacement Protocol 1 EACH MISC MISCELLANE PRN (08:05)
[2024-12-29] MEDS: POTASSIUM CHLORIDE ER 20 MEQ TAB.ER PO STA (08:54)
[2024-12-29 11:57] LABS: Glucose,Whole Blood 182 mg/dL (70-110)
--- NOTE | 2024-12-29 12:54 | US ---
EXAMINATION TYPE: US chest DATE OF EXAM: 12/29/2024 Exam done portable COMPARISON: US 2024 CLINICAL INDICATION: Male, 79 years old with history of Pleural effusions; TECHNIQUE: Grayscale imaging of the chest. Targeted ultrasound of the posterior lower bilateral lianna thoraces FINDINGS: EXAM MEASUREMENTS: Right Pleural Effusion pocket size: 10.7 cm Right skin surface to fluid distance: 2.9 cm Left Pleural Effusion pocket size: 9.6 cm Left skin surface to fluid distance: 2.4 cm Right side marked for possible thoracentesis outside the dept. Left side marked for possible thoracentesis outside the dept. Pulmonologists are able to review the images in the patient?s EMR. IMPRESSIONS: 1. Bilateral pleural effusions [facility], , 12/29/2024 12:52 PM
--- NOTE | 2024-12-29 13:03 | P.PN ---
Subjective Progress Note Date: 12/28/24 Principal diagnosis: Reason for follow-up is elevated procalcitonin/pneumonia Patient is a 79-year-old male with a past medical history significant for diabetes mellitus hypertension hyperlipidemia atrial fibrillation skin cancer presenting to the hospital for evaluation of increasing shortness of breath patient did have bilateral effusion status post thoracocentesis on the right size did have elevated Pro-Flex concerning for pneumonia prompting this consultation. On today's evaluation that is 12/28/2024,the patient remains to be afebrile, patient is on 4 L nasal cannula supplemental oxygen and denies any shortness of breath no chest pain or any worsening cough.Patient denies having any nausea or vomiting, no abdominal pain and no diarrhea has been reported. Patient white count slightly down to 14.7, creatinine 0.72 Objective - Vital Signs Vital signs: Vital Signs Temp 98.3 F 12/28/24 08:00 Pulse 110 H 12/28/24 12:45 Resp 16 12/28/24 12:00 BP 124/78 12/28/24 12:00 Pulse Ox 94 L 12/28/24 12:00 FiO2 60 12/26/24 07:32 Intake & Output 12/27/24 12/28/24 12/28/24 18:59 06:59 18:59 Intake Total 1260 480 Output Total 775 700 850 Balance -775 560 -370 Weight 75.5 kg Intake: Intake, IV Titration 600 Amount Cefepime 2 gm In Sodium 100 Chloride 0.9% 100 ml @ 25 mls/hr IVPB Q8HR BLUE Rx# :[id number] Vancomycin 1,500 mg In 500 Sodium Chloride 0.9% 500 ml 500 ml @ 167 mls/hr IVPB Q16H BLUE Rx#: [id number] Oral 660 480 Output: Urine 775 700 850 Other: Voiding Method Diaper Diaper External Catheter External Catheter External Catheter # Bowel Movements 1 - Exam GENERAL DESCRIPTION: An elderly male lying in bed in no distress RESPIRATORY SYSTEM: Unlabored breathing , decreased breath sounds at bases HEART: S1 S2 regular rate and rhythm , ABDOMEN: Soft , no tenderness EXTREMITIES: No edema feet - Labs CBC & Chem 7: 12/29/24 06:55 12/29/24 06:55 Labs: Abnormal Lab Results - Last 24 Hours (Table) 12/27/24 12/27/24 12/27/24 Range/Units 07:02 16:58 19:48 WBC (3.8-10.6) k/uL RBC (4.30-5.90) m/uL Hgb (13.0-17.5) gm/dL Hct (39.0-53.0) % MCHC (31.0-37.0) g/dL RDW (11.5-15.5) % Neutrophils # (1.3-7.7) k/uL ESR 26 H (0-20) mm/Hr BUN (9-20) mg/dL Glucose (74-99) mg/dL POC Glucose (mg/dL) 151 H 170 H (70-110) mg/dL 12/28/24 12/28/24 12/28/24 Range/Units 05:38 06:10 06:10 WBC 14.7 H (3.8-10.6) k/uL RBC 4.09 L (4.30-5.90) m/uL Hgb 11.4 L (13.0-17.5) gm/dL Hct 37.0 L (39.0-53.0) % MCHC 30.7 L (31.0-37.0) g/dL RDW 15.9 H (11.5-15.5) % Neutrophils # 13.1 H (1.3-7.7) k/uL ESR (0-20) mm/Hr BUN 55 H (9-20) mg/dL Glucose 176 H (74-99) mg/dL POC Glucose (mg/dL) 172 H (70-110) mg/dL 12/28/24 Range/Units 11:24 WBC (3.8-10.6) k/uL RBC (4.30-5.90) m/uL Hgb (13.0-17.5) gm/dL Hct (39.0-53.0) % MCHC (31.0-37.0) g/dL RDW (11.5-15.5) % Neutrophils # (1.3-7.7) k/uL ESR (0-20) mm/Hr BUN (9-20) mg/dL Glucose (74-99) mg/dL POC Glucose (mg/dL) 233 H (70-110) mg/dL Microbiology - Last 24 Hours (Table) 12/26/24 11:40 Gram Stain - Preliminary Pleural Fluid Body Fluid Culture - Preliminary 12/26/24 11:40 Acid Fast Bacilli Smear - Preliminary Pleural Fluid Assessment and Plan (1) Pleural effusion Current Visit: Yes Status: Acute Code(s): J90 - PLEURAL EFFUSION, NOT ELSEWHERE CLASSIFIED SNOMED Code(s): 91818799 (2) Pneumonia Current Visit: Yes Status: Acute Code(s): J18.9 - PNEUMONIA, UNSPECIFIED ORGANISM SNOMED Code(s): 868152762 Plan: 1patient presented to hospital with increasing shortness of breath cough and this patient did have evidence of bilateral effusion patient also have elevated procalcitonin concerning for possible pneumonia with a parapneumonic effusion. 2patient is status post thoracocentesis and the fluid has been sent for culture which which is currently pending 3patient to continue with vancomycin and cefepime while waiting for the culture to finalize and monitor clinical course closely. Dictation was produced using [employer] dictation software. please excuse any grammatical, word or spelling errors. Time with Patient: Less than 30
--- NOTE | 2024-12-29 13:03 | P.PN ---
Subjective Progress Note Date: 12/29/24 Principal diagnosis: Reason for follow-up is elevated procalcitonin/pneumonia Patient is a 79-year-old male with a past medical history significant for diabetes mellitus hypertension hyperlipidemia atrial fibrillation skin cancer presenting to the hospital for evaluation of increasing shortness of breath patient did have bilateral effusion status post thoracocentesis on the right size did have elevated Pro-Flex concerning for pneumonia prompting this consultation. On today's evaluation that is 12/29/2024, the patient continues to be afebrile, the patient is on r 3 L current oxygen and breathing comfortably, the Pt slightly sleepy today did not answer any question no vomiting diarrhea any changes reported by the nursing staff. Patient white count is 15.8 creatinine 0.58 Vanco trough is 17.4 cultures currently pending Objective - Vital Signs Vital signs: Vital Signs Temp 97.5 F L 12/29/24 08:00 Pulse 104 H 12/29/24 12:15 Resp 18 12/29/24 12:15 BP 146/79 12/29/24 11:50 Pulse Ox 95 12/29/24 11:50 FiO2 60 12/26/24 07:32 Intake & Output 12/28/24 12/29/24 12/29/24 18:59 06:59 18:59 Intake Total 1020 100 540 Output Total 950 900 Balance 70 100 -360 Weight 75.5 kg Intake: Intake, IV Titration 100 Amount Cefepime 2 gm In Sodium 100 Chloride 0.9% 100 ml @ 25 mls/hr IVPB Q8HR [facility] Rx# :[id number] Oral 1020 540 Output: Urine 950 900 Other: Voiding Method External Catheter External Catheter External Catheter # Bowel Movements 1 - Exam GENERAL DESCRIPTION: An elderly male lying in bed in no distress RESPIRATORY SYSTEM: Unlabored breathing , decreased breath sounds at bases HEART: S1 S2 regular rate and rhythm , ABDOMEN: Soft , no tenderness EXTREMITIES: No edema feet - Labs CBC & Chem 7: 12/29/24 06:55 12/29/24 06:55 Labs: Abnormal Lab Results - Last 24 Hours (Table) 12/28/24 12/28/24 12/29/24 Range/Units 16:34 20:07 06:16 WBC (3.8-10.6) k/uL Hgb (13.0-17.5) gm/dL MCHC (31.0-37.0) g/dL RDW (11.5-15.5) % Neutrophils # (1.3-7.7) k/uL Potassium (3.5-5.1) mmol/L Chloride (98-107) mmol/L Carbon Dioxide (22-30) mmol/L BUN (9-20) mg/dL Creatinine (0.66-1.25) mg/dL Glucose (74-99) mg/dL POC Glucose (mg/dL) 218 H 160 H 167 H (70-110) mg/dL 12/29/24 12/29/24 12/29/24 Range/Units 06:55 06:55 11:56 WBC 15.8 H (3.8-10.6) k/uL Hgb 11.8 L (13.0-17.5) gm/dL MCHC 29.8 L (31.0-37.0) g/dL RDW 15.9 H (11.5-15.5) % Neutrophils # 13.8 H (1.3-7.7) k/uL Potassium 3.1 L (3.5-5.1) mmol/L Chloride 109 H (98-107) mmol/L Carbon Dioxide 20 L (22-30) mmol/L BUN 44 H (9-20) mg/dL Creatinine 0.58 L (0.66-1.25) mg/dL Glucose 160 H (74-99) mg/dL POC Glucose (mg/dL) 182 H (70-110) mg/dL Microbiology - Last 24 Hours (Table) 12/26/24 11:40 Gram Stain - Preliminary Pleural Fluid Body Fluid Culture - Preliminary Assessment and Plan (1) Pleural effusion Current Visit: Yes Status: Acute Code(s): J90 - PLEURAL EFFUSION, NOT ELSEWHERE CLASSIFIED SNOMED Code(s): 60033036 (2) Pneumonia Current Visit: Yes Status: Acute Code(s): J18.9 - PNEUMONIA, UNSPECIFIED ORGANISM SNOMED Code(s): 040922133 Plan: 1patient presented to hospital with increasing shortness of breath cough and this patient did have evidence of bilateral effusion patient also have elevated procalcitonin concerning for possible pneumonia with a parapneumonic effusion. 2patient is status post thoracocentesis and the fluid has been sent for culture which which is currently pending 3patient vancomycin level is therapeutic creatinine is normal white count slightly up to monitor closely continue vancomycin and cefepime while waiting for the culture to finalize and monitor clinical course closely. Dictation was produced using [employer] dictation software. please excuse any grammatical, word or spelling errors. Time with Patient: Less than 30
--- NOTE | 2024-12-29 14:28 | P.PN ---
Subjective Progress Note Date: 12/29/24 Reason for Consult (text): Atrial fibrillation, possible CHF, elevated troponin History of present illness: This is an 79-year-old male patient of Dr. Montgomery with past medical history of coronary artery disease status post stenting, sick sinus syndrome status post permanent pacemaker, paroxysmal atrial fibrillation, hypertension. We have been asked to evaluate the patient for atrial fibrillation, possible CHF and elevated troponin. Patient was initially seen at [facility] for possible pneumonia and sepsis and transferred to [facility]. Patient is status post multiple fluid boluses and initially placed on BiPAP in the emergency center. He is now on 10L high flow oxygen. Patient states he went to the hospital due to breathing problems and cough for a couple weeks. He also complains of dyspnea at rest. He denies palpitations. He states he had right sided chest pain. Blood pressure 121/64, heart rate 100, pulse ox 96% on high flow nasal cannula at 10 L. Patient is afebrile. Patient has been started on IV antibiotics nebulizer treatments, IV Lasix 20 mg daily. Magnesium has been replaced. -EKG: Atrial fibrillation at a ventricular rate of 103 bpm -Chest x-ray: Bilateral pleural effusions. -Chest ultrasound reveals right pleural effusion pocket size 13.1 cm, left pleural effusion pocket size 2.6 cm. -Echocardiogram reveals EF 45 to 50%, mild concentric left ventricular hypertrophy, moderate pulmonary hypertension, moderate aortic stenosis with mild aortic regurgitation. -Laboratory studies: WBC 14.2, hemoglobin 10.9. INR 1.5. BUN initially 68 now 76 and creatinine initially 1.64 with repeat at 1.44. Potassium 3.3. Troponin 0.096, 0.184 and 0.012. -Home cardiac medications: Atorvastatin 40 mg at bedtime, Lasix 20 mg daily, losartan 25 mg daily, Ranexa 500 mg twice daily, Xarelto 15 mg at bedtime, patient is also on ferrous sulfate and Proscar. 12/27 Patient seen and examined. Yesterday, patient underwent thoracentesis on the right with removal of 600 mL of fluid. Patient states his breathing is not better today. He denies chest pain, no fever or chills. He is not eating very much. Blood pressure 111/72, heart rate 83, pulse ox 98% on 8 L nasal cannula. Repeat blood work reveals hemoglobin 10.5, BUN 22 creatinine 0.94, potassium 3.2. 12/28 Patient seen and examined. Blood pressure 124/78, heart rate 111, pulse ox 94% on 5 L nasal cannula. Repeat blood work reveals WBC 14.7, hemoglobin 11.4. BUN 55 creatinine 0.72. Sed rate 26, CRP 18.9. Cytology from pleural fluid is pending. Patient has been maintained on IV Lasix 20 mg daily. Weights are unchanged. No med changes today. 12/29 Patient seen and examined. Blood pressure 146/79, heart rate 104, pulse ox 95% on 3 L nasal cannula. Repeat blood work reveals WBC 15.8, hemoglobin 1.8. BUN 44 and creatinine 0.58. Potassium 3.1. CT chest revealed moderate bilateral pleural effusions larger on the right. Compressive atelectasis. Cholelithiasis. Chest ultrasound revealed a right sided 10.7 cm pocket and a left-sided 9.6 cm pocket. Pulmonary medicine is following closely. Cytology is negative for malignant cells on the pleural fluid. Physical examination: Gen: This is an 79-year-old male in no acute respiratory distress. VS: reviewed HEENT: Head is atraumatic, normocephalic. Pupils equal, round. Sclerae is anicteric. NECK: Supple. No JVD. LUNGS: Diminished breath sounds bilaterally. No intercostal retractions. HEART: Regular rate and rhythm. No murmur. ABDOMEN: Soft No tenderness. EXTREMITIES: No pedal edema. No calf tenderness. NEUROLOGICAL: Patient is awake. Assessment: Acute hypoxic respiratory failure multifactorial due to pneumonia most likely with elevated procalcitonin, possible component of acute systolic heart failure Possible pneumonia on IV antibiotics Bilateral pleural effusions, right greater than left with exudative and fluid on thoracentesis not consistent with heart failure. Acute kidney injury NSTEMI, type II secondary to sepsis Valvular heart disease with moderate aortic stenosis and mild aortic regurgitation Moderate pulmonary hypertension CAD with previous stenting Sick sinus syndrome status post permanent pacemaker Paroxysmal atrial fibrillation Hypertension Plan: Continue current cardiac medications Xarelto held for possible thoracentesis Hold losartan due to abnormal renal function Continue patient on IV Lasix 20 mg currently twice daily Cardiology will sign off this case and follow on an as-needed basis. Please reconsult for any new concerns. Patient may follow-up in the office in one to 2 weeks. Nurse practitioner note has been reviewed, I agree with documented findings and plan of care. Patient was seen and examined. Objective - Vital Signs Vital signs: Vital Signs Temp 97.5 F L 12/29/24 08:00 Pulse 104 H 12/29/24 12:15 Resp 18 12/29/24 12:15 BP 146/79 12/29/24 11:50 Pulse Ox 95 12/29/24 11:50 FiO2 60 12/26/24 07:32 Intake & Output 12/28/24 12/29/24 12/29/24 18:59 06:59 18:59 Intake Total 1020 100 540 Output Total 950 900 Balance 70 100 -360 Weight 75.5 kg Intake: Intake, IV Titration 100 Amount Cefepime 2 gm In Sodium 100 Chloride 0.9% 100 ml @ 25 mls/hr IVPB Q8HR [facility] Rx# :[id number] Oral 1020 540 Output: Urine 950 900 Other: Voiding Method External Catheter External Catheter External Catheter # Bowel Movements 1 - Labs CBC & Chem 7: 12/29/24 06:55 12/29/24 06:55 Labs: Abnormal Lab Results - Last 24 Hours (Table) 12/28/24 12/28/24 12/29/24 Range/Units 16:34 20:07 06:16 WBC (3.8-10.6) k/uL Hgb (13.0-17.5) gm/dL MCHC (31.0-37.0) g/dL RDW (11.5-15.5) % Neutrophils # (1.3-7.7) k/uL Potassium (3.5-5.1) mmol/L Chloride (98-107) mmol/L Carbon Dioxide (22-30) mmol/L BUN (9-20) mg/dL Creatinine (0.66-1.25) mg/dL Glucose (74-99) mg/dL POC Glucose (mg/dL) 218 H 160 H 167 H (70-110) mg/dL 12/29/24 12/29/24 12/29/24 Range/Units 06:55 06:55 11:56 WBC 15.8 H (3.8-10.6) k/uL Hgb 11.8 L (13.0-17.5) gm/dL MCHC 29.8 L (31.0-37.0) g/dL RDW 15.9 H (11.5-15.5) % Neutrophils # 13.8 H (1.3-7.7) k/uL Potassium 3.1 L (3.5-5.1) mmol/L Chloride 109 H (98-107) mmol/L Carbon Dioxide 20 L (22-30) mmol/L BUN 44 H (9-20) mg/dL Creatinine 0.58 L (0.66-1.25) mg/dL Glucose 160 H (74-99) mg/dL POC Glucose (mg/dL) 182 H (70-110) mg/dL Microbiology - Last 24 Hours (Table) 12/26/24 11:40 Gram Stain - Preliminary Pleural Fluid Body Fluid Culture - Preliminary
[2024-12-29 16:22] LABS: Glucose,Whole Blood 179 mg/dL (70-110)
--- NOTE | 2024-12-29 16:29 | P.PN ---
Subjective Progress Note Date: 12/29/24 Principal diagnosis: Acute hypoxic respiratory failure with parapneumonic effusions This is an 79year-old white male with history of multiple medical problems including diabetes, coronary artery disease, history of congestive heart failure, dyslipidemia, patient was transferred today from [facility] for possible pneumonia and sepsis. Patient presented to the ER with shortness of breath, abnormal chest x-ray showing bilateral pleural effusions patient was noted to have low blood pressure upon his initial evaluation, patient was given fluid boluses at the [place] facility, and he was transferred here more fluids were given. I saw the patient in the ER, patient is on BiPAP, 10/05, patient is already feeling comfortable, he is hemodynamically stable, and I felt that the patient could be admitted to the cardiac floor instead of sending the patient to the ICU. Patient is already receiving broad-spectrum antibiotics, and again his chest x-ray is more suggestive of pulmonary edema underlying pneumonia is not entirely ruled out. History rm, the patient is a very poor historian, not much could be obtained from the patient himself as he seems to be confused. Looking at the chart patient already received 2 to 3 L of fluid boluses prior to my evaluation. CBC showed leukocytosis with WBC count is 14.2 hemoglobin 10.9 patient had an ABG on 50% FiO2 and BiPAP. pO2 of 66 pCO2 29 pH of 7.41. Ultrasound of the chest showed bilateral pleural effusions may have to consider diagnostic and therapeutic thoracentesis however the patient has been on Xarelto which is presently on hold. Electrolytes showed bicarb of 17 BUN of 68 creatinine 1.64 however no baseline creatinine available on this patient. In 2020, there is a report on the transesophageal echocardiogram showing mostly moderate sclerotic and decreased leaflet excursion of the aortic valve, there was also evidence of mild to moderate mitral regurgitation and his ejection fraction at the time was noted to be 50%. In the cardiology note, there is history of coronary artery disease and previous stenting of RCA history of sick sinus syndrome and permanent. Permanent pacemaker placement, he has paroxysmal atrial fibrillation hypertension and moderate severe aortic stenosis. The patient is seen today December 26, 2024 in follow-up on the selective care unit. He is currently resting in bed. Awake and alert in no acute distress. Flow nasal cannula. He has been afebrile. Hemodynamically stable. Ultrasound of the chest revealed a significant 13.1 cm pocket on the right. He did undergo thoracentesis today by Dr. Skinner with 600 mL of yellow cloudy thick fluid removed. Chest x-ray showed significant improvement. No evidence of pneumothorax. Fluid analysis, cultures and cytology pending. White count 15.3. Hemoglobin 10.9. Platelets 374. Sodium 142. Potassium 3.3. Bicarb 22. BUN 76. Creatinine 1.44. Glucose 173. He remains on cefepime and vancomycin. Remains on IV diuretics. Currently in a negative balance. The patient is seen today December 27, 2024 in follow-up on the selective care unit. He is currently resting in bed. Awake and alert in no acute distress. He is maintaining O2 saturations in the 90s on 8 L high flow nasal cannula. He is afebrile. Hemodynamically stable. He did undergo a right sided thoracentesis yesterday. Fluid is exudate with a total protein greater than 3.6, LDH 1356. Cultures and cytology pending. White count 15.0. Hemoglobin 10.5. Platelets 356. Sodium 144. Potassium 3.2. Bicarb 27. BUN 66. Creatinine 0.94. Glucose 162. C-reactive protein 18.9. He is continued on vancomycin and cefepime. Continued on bronchodilators as needed. Remains on IV diuretics. Anticoagulated with Xarelto. Currently in a -1.4 L balance Patient was seen today on 12/28/2024, patient does feel better compared to how he felt when he came in, he is now on 5 L nasal cannula with O2 sat of 94% he is hemodynamically stable, not in any distress. Cytology on the pleural effusion is still pending however, the pleural effusion is quite exudative in nature actually highly suspicious for infection and/or malignancy. Protein was high, glucose was very low, and LDH is extremely high. Gram stain of the fluid is negative and no organisms noted and AFB stain is negative. Considering the significant abnormality on the pleural effusion, I will recommend a CT of the chest on this patient, and the fluid may be prone to develop loculation, and the patient may have to be considered for a pigtail catheter. In the meantime re ronaldo on vancomycin and cefepime. Seen today on 12/29/2024, patient is basically about the same. On 2 L nasal cannula, blood pressure is a bit elevated 149/84, heart rate is 108, patient has a temp of 98.9, CT of the chest failed to show loculated pleural effusion, however looking at the labs from the pleural effusion, it seems to be quite complicated pleural effusion, almost an empyema although the cultures have been negative. Will plan another thoracentesis on this patient, may actually require pigtail catheter placement for adequate drainage but will proceed with another thoracentesis tomorrow on the right side, if fluid remains quite exudative with elevated LDH and low glucose, I will also recommend a pH on the fluid, may really consider the patient for either a chest tube placement or pigtail catheter. I prefer a pigtail catheter placement but considering the patient is on anticoagulation therapy at this point, interventional radiology will likely decline the procedure. Objective - Vital Signs Vital signs: Vital Signs Temp 98.9 F 12/29/24 16:00 Pulse 108 H 12/29/24 16:00 Resp 16 12/29/24 16:00 BP 149/84 12/29/24 16:00 Pulse Ox 92 L 12/29/24 16:00 FiO2 60 12/26/24 07:32 Intake & Output 12/28/24 12/29/24 12/29/24 18:59 06:59 18:59 Intake Total 1020 100 780 Output Total 950 1100 Balance 70 100 -320 Weight 75.5 kg Intake: Intake, IV Titration 100 Amount Cefepime 2 gm In Sodium 100 Chloride 0.9% 100 ml @ 25 mls/hr IVPB Q8HR [facility] Rx# :[id number] Oral 1020 780 Output: Urine 950 1100 Other: Voiding Method External Catheter External Catheter External Catheter # Bowel Movements 1 - Exam GENERAL EXAM: Alert, weak, frail 79-year-old male, on 2 L nasal cannula HEAD: Normocephalic. EYES: Normal reaction of pupils, equal size. NOSE: Clear with pink turbinates. THROAT: No erythema or exudates. NECK: No masses, no JVD. CHEST: No chest wall deformity. LUNGS: Diminished breath sounds at the bases with crackles CVS: S1 and S2 normal with no audible murmur, regular rhythm. ABDOMEN: No hepatosplenomegaly, normal bowel sounds, no guarding or rigidity. SPINE: No scoliosis or deformity SKIN: No rashes CENTRAL NERVOUS SYSTEM: Left-sided weakness, tone is normal in all 4 extremities. EXTREMITIES: There is no peripheral edema. No clubbing, no cyanosis. Peripheral pulses are intact. - Labs CBC & Chem 7: 12/29/24 06:55 12/29/24 06:55 Labs: Abnormal Lab Results - Last 24 Hours (Table) 12/28/24 12/28/24 12/29/24 Range/Units 16:34 20:07 06:16 WBC (3.8-10.6) k/uL Hgb (13.0-17.5) gm/dL MCHC (31.0-37.0) g/dL RDW (11.5-15.5) % Neutrophils # (1.3-7.7) k/uL Potassium (3.5-5.1) mmol/L Chloride (98-107) mmol/L Carbon Dioxide (22-30) mmol/L BUN (9-20) mg/dL Creatinine (0.66-1.25) mg/dL Glucose (74-99) mg/dL POC Glucose (mg/dL) 218 H 160 H 167 H (70-110) mg/dL 12/29/24 12/29/24 12/29/24 Range/Units 06:55 06:55 11:56 WBC 15.8 H (3.8-10.6) k/uL Hgb 11.8 L (13.0-17.5) gm/dL MCHC 29.8 L (31.0-37.0) g/dL RDW 15.9 H (11.5-15.5) % Neutrophils # 13.8 H (1.3-7.7) k/uL Potassium 3.1 L (3.5-5.1) mmol/L Chloride 109 H (98-107) mmol/L Carbon Dioxide 20 L (22-30) mmol/L BUN 44 H (9-20) mg/dL Creatinine 0.58 L (0.66-1.25) mg/dL Glucose 160 H (74-99) mg/dL POC Glucose (mg/dL) 182 H (70-110) mg/dL 12/29/24 Range/Units 16:19 WBC (3.8-10.6) k/uL Hgb (13.0-17.5) gm/dL MCHC (31.0-37.0) g/dL RDW (11.5-15.5) % Neutrophils # (1.3-7.7) k/uL Potassium (3.5-5.1) mmol/L Chloride (98-107) mmol/L Carbon Dioxide (22-30) mmol/L BUN (9-20) mg/dL Creatinine (0.66-1.25) mg/dL Glucose (74-99) mg/dL POC Glucose (mg/dL) 179 H (70-110) mg/dL Microbiology - Last 24 Hours (Table) 12/26/24 11:40 Gram Stain - Preliminary Pleural Fluid Body Fluid Culture - Preliminary Assessment and Plan Assessment: Impression: Acute hypoxic respiratory failure Bilateral pleural effusions, parapneumonic effusions/seem to be complicated and almost emphysematous. Possible pneumonia and sepsis Status post right-sided thoracentesis and there was clearly evidence of exudative pleural effusion, does not seem to be an effusion of congestive heart failure, cytology was negative on the pleural effusion this is clearly a parapneumonic complicated pleural effusion History of valvular heart disease/ aortic stenosis, and history of mitral regurgitation History of coronary artery disease and previous stent placement History of sick sinus syndrome Chronic atrial fibrillation Recommendation: Hold Xarelto and plan thoracentesis tomorrow Continue antibiotics, procalcitonin is quite high Cytology was negative on the pleural effusion no evidence of malignancy Cultures on the pleural effusion are so far negative CT of the chest was reviewed, no evidence of loculation and did not point to empyema Repeat thoracentesis and possibly consider a pigtail catheter placement Patient remains quite ill and not ready for any discharge Will continue to follow Time with Patient: Less than 30
[2024-12-29] MEDS: FUROSEMIDE 10 MG/ML 2 ML VIAL IV SCH (19:56)
[2024-12-29 20:26] LABS: Glucose,Whole Blood 171 mg/dL (70-110)
[2024-12-30 06:08] LABS: Glucose,Whole Blood 199 mg/dL (70-110)
--- NOTE | 2024-12-30 06:58 | P.PN ---
Subjective Progress Note Date: 12/29/24 This is a 79-year-old male who presented to the emergency department as a transfer from [facility] with significant shortness of breath on BiPAP with concerns of CHF exacerbation as well as possible pneumonia. Patient has been started on antibiotics in the form of cefepime and vancomycin. Will obtain procalcitonin. Pulmonary project engineering director has been consulted as patient will likely be going to ICU dependent on BiPAP currently. Patient's FiO2 is 50% with a PEEP of 5. Chest x-ray showing bilateral pleural effusions and there is discussion of the possible need for thoracentesis. On admission here, white count is elevated at 14.2, hemoglobin is stable at 10.9, platelets are 369, ABG shows a pH of 7.41, pCO2 is 29, pO2 66, bicarb is 18, sodium 141 with a potassium of 3.7, BUN 68 and creatinine up at 1.64, glucose 138, lactic acid 3.9, magnesium 1.5, troponin 0.096, BNP is 4230. Patient again being admitted to the ICU with pulmonary project engineering director as well as cardiology on consult. 2D echo is ordered and pending at this time. 12/27/2024 Patient is seen in follow-up today with multiple consultations following including pulmonary, infectious disease, cardiology. Patient continues on BiPAP and transitioning to high flow oxygen at 10 L. Patient resides at [facility] and will be returning there on discharge. Apparently patient does not wear oxygen at the ECF. Weaning as tolerated and patient is also status post thoracentesis on the right with pulmonary today at bedside. Will await cultures and patient also maintained on antibiotics in the form of cefepime and vancomycin with infectious disease following. 12/28/2024 Patient is seen in follow-up today maintained on high flow although is transitioning down from 6 L to 5 L and tolerating. Patient reports he feels slightly improved although feels significantly weak and continues with some shortness of breath. Patient reports to eating a little more and tolerating diet with no reported nausea or vomiting. Pulmonary following and CT chest is ordered for evaluation of possible reaccumulation or loculation of the pleural effusion. Patient is afebrile and maintained on IV antibiotics and will continue. Cardiology and infectious disease following as well. 12/29/2024 Patient is seen in follow-up today and is weaning FiO2 as tolerated doing relatively well currently on 2 L via nasal cannula. Patient continues to have shortness of breath with multiple consultations following including pulmonary and CT chest was done likely complicated pleural effusion although did not show much of a loculation. Patient continues with bilateral effusions worse on the right and previous thoracentesis was exudative although cultures are negative thus far, cytology is negative. Plans for possible thoracentesis again on 025. Will await report. Review of systems: Constitutional: No reports of fatigue, fever, or chills Cardiovascular: No reports of chest pain or palpitations Respiratory: reports of shortness of breath and weak cough GI: reports of occasional nausea, no vomiting, or diarrhea : No reports of dysuria or retention Neurovascular: reports of generalized weakness All medications have been reviewed The rest of the 14-point review of systems is negative. PHYSICAL EXAMINATION: GENERAL: The patient is alert and oriented x1-2, lethargic, slightly more awake today, maintained on 2 liters high flow, well developed, elderly appearing, ill- appearing HEENT: Pupils are round and equally reacting to light. EOMI. No scleral icterus. No conjunctival pallor. Normocephalic, atraumatic. No pharyngeal erythema. No thyromegaly. CARDIOVASCULAR: S1 and S2 muffled PULMONARY: Diminished breath sounds bilaterally worse on the right with some scattered expiratory wheezing as well as crackles noted at the bases. ABDOMEN: Soft, nontender, nondistended, normoactive bowel sounds. No palpable organomegaly. MUSCULOSKELETAL: No joint swelling or deformity. EXTREMITIES: No cyanosis, clubbing, or pedal edema. NEUROLOGICAL: Gross neurological examination did not reveal any focal deficits. Diffusely weak SKIN: No rashes. Assessment: Shortness of breath, multifactorial secondary to complex bilateral pleural effusions, greater on the right as well as possible pneumonia, unlikely CHF Leukocytosis with tachycardia and elevated white count, sepsis, present on admission secondary to pneumonia Elevated troponin, 0.096, possibly type II secondary to infection Lactic acidosis secondary to sepsis Elevated kidney functions, acute renal failure Acute systolic heart failure with an EF of 40 to 45% Hypomagnesemia, replaced and improving History of atrial fibrillation, currently on Xarelto which will be held for possible thoracentesis on 12/30/2024 Bilateral pleural effusions, status post thoracentesis on the right with approximately 600 mL removed, exudative and thick, empyema History of coronary artery disease with previous stenting Diabetes mellitus, type II, insulin-dependent History of sick sinus syndrome, status post permanent pacemaker previously Hyperlipidemia Hypertension Former tobacco use GI prophylaxis DVT prophylaxis Full code Plan: Patient was sent here from [facility] for further evaluation on BiPAP, slightly improving and has transitioned off BiPAP currently on 6 L high flow. Apparently patient lives at [facility] and does not wear oxygen outpatient. Continue to wean FiO2 as tolerated. Recommend incentive spirometer as well. Cardiology and pulmonary following as patient is BiPAP dependent with concerns of sepsis, present on admission. Patient is continued on cefepime as well as vancomycin, infectious disease following and cultures are pending at this time. Patient is status post thoracentesis and specimen was sent and pending at this time. Right side thoracentesis with approximately 600 mL removed of exudative thick yellow fluid concerning for empyema and infection, less likely CHF exacerbation per cardiology CT chest was done per pulmonary to evaluate if pleural effusion is loculated or accumulating again and may require Pleurx catheter. Continued persistent complex right pleural effusion and is planning another thoracentesis. Xarelto being held for now Patient is a diabetic and will continue Accu-Cheks before meals and at bedtime as well as 2 AM and sliding scale. 2D echo shows an EF of 40 to 45% with moderate aortic stenosis and mild aortic regurgitation noted along with moderate pulmonary hypertension Appropriate home medications have been reviewed and resumed Pacemaker interrogated with cardiology following, continue IV Lasix and will slightly increase to twice daily and will monitor kidney functions and electrolytes closely. BNP was 4990 Follow-up on repeat labs and replace electrolytes per protocol. Case management following and plan will be to return to [facility] on discharge where he resides. The impression and plan of care has been dictated by Nikki Joseph, Nurse Practitioner as directed. Dr. Petros MD I have performed a history and examination and MDM of this patient, discussed the same with the dictator, and agree with the dictator's assessment and plan as written ,documented as a scribe. Based on total visit time, I have performed more than 50% of the visit. Objective - Vital Signs Vital signs: Vital Signs Temp 98 F 12/30/24 03:15 Pulse 95 12/30/24 03:15 Resp 20 12/30/24 03:15 BP 132/81 12/30/24 03:15 Pulse Ox 95 03/01/25 03:15 FiO2 60 12/26/24 07:32 Intake & Output 12/29/24 12/29/24 12/30/24 06:59 18:59 06:59 Intake Total 100 780 Output Total 1100 800 Balance 100 -320 -800 Weight 75.5 kg 75.5 kg Intake: Intake, IV Titration 100 Amount Cefepime 2 gm In Sodium 100 Chloride 0.9% 100 ml @ 25 mls/hr IVPB Q8HR [facility] Rx# :[id number] Oral 780 Output: Urine 1100 800 Other: Voiding Method External Catheter External Catheter External Catheter - Labs CBC & Chem 7: 12/29/24 06:55 12/29/24 06:55 Labs: Abnormal Lab Results - Last 24 Hours (Table) 12/29/24 12/29/24 12/29/24 Range/Units 06:55 06:55 11:56 WBC 15.8 H (3.8-10.6) k/uL Hgb 11.8 L (13.0-17.5) gm/dL MCHC 29.8 L (31.0-37.0) g/dL RDW 15.9 H (11.5-15.5) % Neutrophils # 13.8 H (1.3-7.7) k/uL Potassium 3.1 L (3.5-5.1) mmol/L Chloride 109 H (98-107) mmol/L Carbon Dioxide 20 L (22-30) mmol/L BUN 44 H (9-20) mg/dL Creatinine 0.58 L (0.66-1.25) mg/dL Glucose 160 H (74-99) mg/dL POC Glucose (mg/dL) 182 H (70-110) mg/dL 12/29/24 12/29/24 12/30/24 Range/Units 16:19 20:24 06:06 WBC (3.8-10.6) k/uL Hgb (13.0-17.5) gm/dL MCHC (31.0-37.0) g/dL RDW (11.5-15.5) % Neutrophils # (1.3-7.7) k/uL Potassium (3.5-5.1) mmol/L Chloride (98-107) mmol/L Carbon Dioxide (22-30) mmol/L BUN (9-20) mg/dL Creatinine (0.66-1.25) mg/dL Glucose (74-99) mg/dL POC Glucose (mg/dL) 179 H 171 H 199 H (70-110) mg/dL Microbiology - Last 24 Hours (Table) 12/26/24 11:40 Gram Stain - Preliminary Pleural Fluid Body Fluid Culture - Preliminary
[2024-12-30 07:27] LABS: Anisocytosis Slight; Basophils % (A) 0 %; Eosinophils % (A) 0 %; HCT 36.4 % (39.0-53.0); Hypochromasia Slight; Lymphocytes # (A) 1.1 k/uL (1.0-4.8); Lymphocytes % (A) 8 %; MCH 26.9 pg (25.0-35.0); MCHC 30.1 g/dL (31.0-37.0); MCV 89.3 fL (80.0-100.0); Mean Platelet Volume 8.1; Monocytes # (A) 0.5 k/uL (0-1.0); Monocytes % (A) 4 %; Neutrophils # (A) 11.9 k/uL (1.3-7.7); Neutrophils % (A) 87 %; Platelet Count 409 k/uL (150-450); RBC 4.08 m/uL (4.30-5.90); RDW 16.1 % (11.5-15.5); WBC 13.7 k/uL (3.8-10.6)
[2024-12-30 07:32] LABS: African American GFR (CKD) >90 (>60 ml/min/1.73 sqM); Anion Gap 10 mmol/L; Blood Urea Nitrogen 33 mg/dL (9-20); Calcium 8.7 mg/dL (8.4-10.2); Carbon Dioxide 22 mmol/L (22-30); Chloride 111 mmol/L (98-107); Glucose 175 mg/dL (74-99); Magnesium 1.5 mg/dL (1.6-2.3); Non-African American GFR(CKD) >90 (>60 ml/min/1.73 sqM); Potassium 3.2 mmol/L (3.5-5.1); Sodium 143 mmol/L (137-145)
[2024-12-30] MEDS ORDERED: Potassium Replacement Protocol 1 EACH MISC MISCELLANE PRN ×2 (09:24→10:32)
[2024-12-30] MEDS ORDERED: Magnesium Replacement Protocol 1 EACH MISC MISCELLANE PRN (09:24)
[2024-12-30] MEDS: MAGNESIUM SULFATE-D5W PMX 1 GM in DEXTROSE/WATER 1 100ML.BAG IVPB SCH (11:17)
[2024-12-30 11:32] LABS: Glucose,Whole Blood 160 mg/dL (70-110)
[2024-12-30] MEDS: POTASSIUM CHLORIDE 10 MEQ in WATER FOR INJECTION 1 100ML.BAG IVPB SCH (12:14)
--- NOTE | 2024-12-30 15:21 | P.PN ---
Subjective Progress Note Date: 12/30/24 Principal diagnosis: Acute hypoxic respiratory failure with parapneumonic effusions This is an 79year-old white male with history of multiple medical problems including diabetes, coronary artery disease, history of congestive heart failure, dyslipidemia, patient was transferred today from [facility] for possible pneumonia and sepsis. Patient presented to the ER with shortness of breath, abnormal chest x-ray showing bilateral pleural effusions patient was noted to have low blood pressure upon his initial evaluation, patient was given fluid boluses at the [place] facility, and he was transferred here more fluids were given. I saw the patient in the ER, patient is on BiPAP, 10/05, patient is already feeling comfortable, he is hemodynamically stable, and I felt that the patient could be admitted to the cardiac floor instead of sending the patient to the ICU. Patient is already receiving broad-spectrum antibiotics, and again his chest x-ray is more suggestive of pulmonary edema underlying pneumonia is not entirely ruled out. History rm, the patient is a very poor historian, not much could be obtained from the patient himself as he seems to be confused. Looking at the chart patient already received 2 to 3 L of fluid boluses prior to my evaluation. CBC showed leukocytosis with WBC count is 14.2 hemoglobin 10.9 patient had an ABG on 50% FiO2 and BiPAP. pO2 of 66 pCO2 29 pH of 7.41. Ultrasound of the chest showed bilateral pleural effusions may have to consider diagnostic and therapeutic thoracentesis however the patient has been on Xarelto which is presently on hold. Electrolytes showed bicarb of 17 BUN of 68 creatinine 1.64 however no baseline creatinine available on this patient. In 2020, there is a report on the transesophageal echocardiogram showing mostly moderate sclerotic and decreased leaflet excursion of the aortic valve, there was also evidence of mild to moderate mitral regurgitation and his ejection fraction at the time was noted to be 50%. In the cardiology note, there is history of coronary artery disease and previous stenting of RCA history of sick sinus syndrome and permanent. Permanent pacemaker placement, he has paroxysmal atrial fibrillation hypertension and moderate severe aortic stenosis. The patient is seen today December 26, 2024 in follow-up on the selective care unit. He is currently resting in bed. Awake and alert in no acute distress. Flow nasal cannula. He has been afebrile. Hemodynamically stable. Ultrasound of the chest revealed a significant 13.1 cm pocket on the right. He did undergo thoracentesis today by Dr. Skinner with 600 mL of yellow cloudy thick fluid removed. Chest x-ray showed significant improvement. No evidence of pneumothorax. Fluid analysis, cultures and cytology pending. White count 15.3. Hemoglobin 10.9. Platelets 374. Sodium 142. Potassium 3.3. Bicarb 22. BUN 76. Creatinine 1.44. Glucose 173. He remains on cefepime and vancomycin. Remains on IV diuretics. Currently in a negative balance. The patient is seen today December 27, 2024 in follow-up on the selective care unit. He is currently resting in bed. Awake and alert in no acute distress. He is maintaining O2 saturations in the 90s on 8 L high flow nasal cannula. He is afebrile. Hemodynamically stable. He did undergo a right sided thoracentesis yesterday. Fluid is exudate with a total protein greater than 3.6, LDH 1356. Cultures and cytology pending. White count 15.0. Hemoglobin 10.5. Platelets 356. Sodium 144. Potassium 3.2. Bicarb 27. BUN 66. Creatinine 0.94. Glucose 162. C-reactive protein 18.9. He is continued on vancomycin and cefepime. Continued on bronchodilators as needed. Remains on IV diuretics. Anticoagulated with Xarelto. Currently in a -1.4 L balance Patient was seen today on 12/28/2024, patient does feel better compared to how he felt when he came in, he is now on 5 L nasal cannula with O2 sat of 94% he is hemodynamically stable, not in any distress. Cytology on the pleural effusion is still pending however, the pleural effusion is quite exudative in nature actually highly suspicious for infection and/or malignancy. Protein was high, glucose was very low, and LDH is extremely high. Gram stain of the fluid is negative and no organisms noted and AFB stain is negative. Considering the significant abnormality on the pleural effusion, I will recommend a CT of the chest on this patient, and the fluid may be prone to develop loculation, and the patient may have to be considered for a pigtail catheter. In the meantime re ronaldo on vancomycin and cefepime. Seen today on 12/29/2024, patient is basically about the same. On 2 L nasal cannula, blood pressure is a bit elevated 149/84, heart rate is 108, patient has a temp of 98.9, CT of the chest failed to show loculated pleural effusion, however looking at the labs from the pleural effusion, it seems to be quite complicated pleural effusion, almost an empyema although the cultures have been negative. Will plan another thoracentesis on this patient, may actually require pigtail catheter placement for adequate drainage but will proceed with another thoracentesis tomorrow on the right side, if fluid remains quite exudative with elevated LDH and low glucose, I will also recommend a pH on the fluid, may really consider the patient for either a chest tube placement or pigtail catheter. I prefer a pigtail catheter placement but considering the patient is on anticoagulation therapy at this point, interventional radiology will likely decline the procedure. Patient was seen today on 12/30/2024, patient is about the same, today I recommended thoracentesis to be done on the left side, and I am also considering repeat thoracentesis on the right side, and he continues to have fairly good sized pleural effusions based on his CT of the chest and based on his ultrasound of the chest. I asked the patient to proceed with thoracentesis today, however he declined. I am concerned that this is a complicated parapneumonic pleural effusion, may have to consider even a pigtail catheter placement, but patient is refusing even a thoracentesis at this point. His WBC count today 13.7 hemoglobin 11 electrolytes are normal except for potassium of 3.2 renal profile is normal patient remains on antibiotics as per infectious disease on the case. Objective - Vital Signs Vital signs: Vital Signs Temp 98.2 F 12/30/24 08:10 Pulse 115 H 12/30/24 12:00 Resp 17 12/30/24 12:00 BP 141/75 12/30/24 12:00 Pulse Ox 94 L 12/30/24 12:00 FiO2 60 12/26/24 07:32 Intake & Output 12/29/24 12/30/24 12/30/24 18:59 06:59 18:59 Intake Total 780 Output Total 1100 800 Balance -320 -800 Weight 75.5 kg Intake: Oral 780 Output: Urine 1100 800 Other: Voiding Method External Catheter External Catheter External Catheter - Exam GENERAL EXAM: Alert, weak, frail 79-year-old male, on 3 L nasal cannula HEAD: Normocephalic. EYES: Normal reaction of pupils, equal size. NOSE: Clear with pink turbinates. THROAT: No erythema or exudates. NECK: No masses, no JVD. CHEST: No chest wall deformity. LUNGS: Diminished breath sounds at the bases with crackles, dullness at the bases CVS: S1 and S2 normal with no audible murmur, regular rhythm. ABDOMEN: No hepatosplenomegaly, normal bowel sounds, no guarding or rigidity. SPINE: No scoliosis or deformity SKIN: No rashes CENTRAL NERVOUS SYSTEM: Left-sided weakness, tone is normal in all 4 extremities. EXTREMITIES: There is no peripheral edema. No clubbing, no cyanosis. Peripheral pulses are intact. - Labs CBC & Chem 7: 12/30/24 06:12/30/24 06: Labs: Abnormal Lab Results - Last 24 Hours (Table) 12/29/24 12/29/24 12/30/24 Range/Units 16:19 20:24 06:06 WBC (3.8-10.6) k/uL RBC (4.30-5.90) m/uL Hgb (13.0-17.5) gm/dL Hct (39.0-53.0) % MCHC (31.0-37.0) g/dL RDW (11.5-15.5) % Neutrophils # (1.3-7.7) k/uL Potassium (3.5-5.1) mmol/L Chloride (98-107) mmol/L BUN (9-20) mg/dL Creatinine (0.66-1.25) mg/dL Glucose (74-99) mg/dL POC Glucose (mg/dL) 179 H 171 H 199 H (70-110) mg/dL Magnesium (1.6-2.3) mg/dL 12/30/24 12/30/24 12/30/24 Range/Units 06:25 06:25 11:27 WBC 13.7 H (3.8-10.6) k/uL RBC 4.08 L (4.30-5.90) m/uL Hgb 11.0 L (13.0-17.5) gm/dL Hct 36.4 L (39.0-53.0) % MCHC 30.1 L (31.0-37.0) g/dL RDW 16.1 H (11.5-15.5) % Neutrophils # 11.9 H (1.3-7.7) k/uL Potassium 3.2 L (3.5-5.1) mmol/L Chloride 111 H (98-107) mmol/L BUN 33 H (9-20) mg/dL Creatinine 0.61 L (0.66-1.25) mg/dL Glucose 175 H (74-99) mg/dL POC Glucose (mg/dL) 160 H (70-110) mg/dL Magnesium 1.5 L (1.6-2.3) mg/dL Microbiology - Last 24 Hours (Table) 12/26/24 11:40 Gram Stain - Preliminary Pleural Fluid Body Fluid Culture - Preliminary Assessment and Plan Assessment: Impression: Acute hypoxic respiratory failure Bilateral pleural effusions, parapneumonic effusions/seem to be complicated and almost emphysematous. Possible pneumonia and sepsis Status post right-sided thoracentesis and there was clearly evidence of exudative pleural effusion, does not seem to be an effusion of congestive heart failure, cytology was negative on the pleural effusion this is clearly a parapneumonic complicated pleural effusion History of valvular heart disease/ aortic stenosis, and history of mitral regurgitation History of coronary artery disease and previous stent placement History of sick sinus syndrome Chronic atrial fibrillation Recommendation: Will continue to hold Xarelto and address for possible thoracentesis again hopefully the patient will change his mind about the thoracentesis Continue antibiotics, procalcitonin is quite high Cytology was negative on the pleural effusion no evidence of malignancy Cultures on the pleural effusion are so far negative, AFB is negative CT of the chest was reviewed, no evidence of loculation and did not point to empyema Considering the patient declined thoracentesis, will readdress the thoracentesis with the patient again in 24 hours Patient remains quite ill and not ready for any discharge Will continue to follow Time with Patient: Less than 30
[2024-12-30 16:40] LABS: Glucose,Whole Blood 183 mg/dL (70-110)
[2024-12-30 20:11] LABS: Glucose,Whole Blood 210 mg/dL (70-110)
[2024-12-30] MEDS: POTASSIUM CHLORIDE ER 20 MEQ TAB.ER PO SCH (20:48)
--- NOTE | 2024-12-31 00:50 | P.PN ---
Subjective Progress Note Date: 12/30/24 This is a 79-year-old male who presented to the emergency department as a transfer from [facility] with significant shortness of breath on BiPAP with concerns of CHF exacerbation as well as possible pneumonia. Patient has been started on antibiotics in the form of cefepime and vancomycin. Will obtain procalcitonin. Pulmonary carpet mechanic has been consulted as patient will likely be going to ICU dependent on BiPAP currently. Patient's FiO2 is 50% with a PEEP of 5. Chest x-ray showing bilateral pleural effusions and there is discussion of the possible need for thoracentesis. On admission here, white count is elevated at 14.2, hemoglobin is stable at 10.9, platelets are 369, ABG shows a pH of 7.41, pCO2 is 29, pO2 66, bicarb is 18, sodium 141 with a potassium of 3.7, BUN 68 and creatinine up at 1.64, glucose 138, lactic acid 3.9, magnesium 1.5, troponin 0.096, BNP is 4230. Patient again being admitted to the ICU with pulmonary carpet mechanic as well as cardiology on consult. 2D echo is ordered and pending at this time. 12/27/2024 Patient is seen in follow-up today with multiple consultations following including pulmonary, infectious disease, cardiology. Patient continues on BiPAP and transitioning to high flow oxygen at 10 L. Patient resides at [facility] and will be returning there on discharge. Apparently patient does not wear oxygen at the ECF. Weaning as tolerated and patient is also status post thoracentesis on the right with pulmonary today at bedside. Will await cultures and patient also maintained on antibiotics in the form of cefepime and vancomycin with infectious disease following. 12/28/2024 Patient is seen in follow-up today maintained on high flow although is transitioning down from 6 L to 5 L and tolerating. Patient reports he feels slightly improved although feels significantly weak and continues with some shortness of breath. Patient reports to eating a little more and tolerating diet with no reported nausea or vomiting. Pulmonary following and CT chest is ordered for evaluation of possible reaccumulation or loculation of the pleural effusion. Patient is afebrile and maintained on IV antibiotics and will continue. Cardiology and infectious disease following as well. 12/29/2024 Patient is seen in follow-up today and is weaning FiO2 as tolerated doing relatively well currently on 2 L via nasal cannula. Patient continues to have shortness of breath with multiple consultations following including pulmonary and CT chest was done likely complicated pleural effusion although did not show much of a loculation. Patient continues with bilateral effusions worse on the right and previous thoracentesis was exudative although cultures are negative thus far, cytology is negative. Plans for possible thoracentesis again on 025. Will await report. 12/30/2024 Patient is seen in follow-up today with pulmonary following. Plans for possible thoracentesis on the right again although per nursing staff, patient refused. Unsure why he refused as patient had 1 recently this admission and did relatively well. Patient admits extreme weakness recommend sitting up in the chair more frequently. Patient is reporting continued shortness of breath, fatigue, and lower back pain. Discussed with family at length regarding treatme nt plan and refusal of care and discussed CODE STATUS and daughter along with reported he was no code although apparently per [employer] paperwork patient wishes to be full code. Patient most likely with underlying dementia does not appear capable of making his own decisions. Pulmonary to reattempt thoracentesis in the a.m. Will continue on IV Lasix twice daily. Replace potassium and magnesium today. Per nursing staff patient was also refusing to take medications. Review of systems: Constitutional: reports of fatigue, no fever, or chills Cardiovascular: No reports of chest pain or palpitations Respiratory: reports of shortness of breath and weak cough GI: reports of occasional nausea, no vomiting, or diarrhea, reports not feeling hungry and not much of an appetite : No reports of dysuria or retention Neurovascular: reports of generalized weakness All medications have been reviewed The rest of the 14-point review of systems is negative. PHYSICAL EXAMINATION: GENERAL: The patient is alert and oriented x 2, lethargic, extremely raspy and soft-spoken although is answering questions appropriately and following commands. Slightly more awake today, maintained on 2 liters via nasal cannula, well developed, elderly appearing, ill-appearing HEENT: Pupils are round and equally reacting to light. EOMI. No scleral icterus. No conjunctival pallor. Normocephalic, atraumatic. No pharyngeal erythema. No thyromegaly. CARDIOVASCULAR: S1 and S2 muffled PULMONARY: Diminished breath sounds bilaterally worse on the right with some scattered expiratory wheezing as well as crackles noted at the bases. ABDOMEN: Soft, nontender, nondistended, normoactive bowel sounds. No palpable organomegaly. MUSCULOSKELETAL: No joint swelling or deformity. EXTREMITIES: No cyanosis, clubbing, or pedal edema. NEUROLOGICAL: Gross neurological examination did not reveal any focal deficits. Diffusely weak SKIN: No rashes. Assessment: Shortness of breath, multifactorial secondary to complex bilateral pleural effusions, greater on the right as well as possible pneumonia, unlikely CHF Leukocytosis with tachycardia and elevated white count, sepsis, present on admission secondary to pneumonia Elevated troponin, 0.096, likely type II secondary to infection Lactic acidosis secondary to sepsis Elevated kidney functions, acute renal failure, improving Acute systolic heart failure with an EF of 40 to 45% Hypomagnesemia, replaced and improving History of atrial fibrillation, currently on Xarelto which will be held for possible thoracentesis on 12/31/2024 Bilateral pleural effusions, status post thoracentesis on the right with approximately 600 mL removed, exudative and thick, concerns for empyema History of coronary artery disease with previous stenting Diabetes mellitus, type II, insulin-dependent History of sick sinus syndrome, status post permanent pacemaker previously Hyperlipidemia Hypertension Former tobacco use GI prophylaxis DVT prophylaxis Full code Plan: Patient was sent here from [facility] for further evaluation on BiPAP, with severe shortness of breath, currently improving and FiO2 is being weaned currently on 2 L via nasal cannula Encouraged incentive spirometer use at least 10 times every hour while awake, patient needs reinforcement and also assistance as patient is significantly weak. Cardiology and pulmonary following as patient was BiPAP dependent with concerns of sepsis, present on admission. Patient is continued on cefepime as well as vancomycin, infectious disease following and cultures thus far are negative. Patient is status post thoracentesis and specimen was sent and negative for malignancy. Right side thoracentesis with approximately 600 mL removed of exudative thick yellow fluid concerning for empyema and infection, less likely CHF exacerbation per cardiology CT chest was done per pulmonary to evaluate if pleural effusion is loculated or accumulating again and may require Pleurx catheter. Continued persistent complex right pleural effusion and is planning another thoracentesis. Pulmonary planned on doing thoracentesis today although patient refused. Will attempt on 12/31/2024. Xarelto being held for now Patient is a diabetic and will continue Accu-Cheks before meals and at bedtime as well as 2 AM and sliding scale. 2D echo shows an EF of 40 to 45% with moderate aortic stenosis and mild aortic regurgitation noted along with moderate pulmonary hypertension Appropriate home medications have been reviewed and resumed Pacemaker interrogated with cardiology following, patient maintained on IV Lasix and will continue twice daily and will monitor kidney functions and electrolytes closely. BNP was 4990 CODE STATUS was addressed and discussed with family including daughter and and they report he was no code although per [facility] paperwork, CODE STATUS reports he is full code. Patient does not appear to be of sound mind to be making these decisions and most likely underlying dementia. Per daughter Pauline Rob reports he is capable of making decisions himself Follow-up on repeat labs and replace electrolytes per protocol. Case management following and plan will be to return to [facility] on discharge where he resides. The impression and plan of care has been dictated by Nikki Joseph, Nurse Practitioner as directed. Dr. Petros MD I have performed a history and examination and MDM of this patient, discussed the same with the dictator, and agree with the dictator's assessment and plan as written ,documented as a scribe. Based on total visit time, I have performed more than 50% of the visit. Objective - Vital Signs Vital signs: Vital Signs Temp 98 F 12/30/24 03:15 Pulse 95 12/30/24 03:15 Resp 20 12/30/24 03:15 BP 132/81 12/30/24 03:15 Pulse Ox 95 12/30/24 03:15 FiO2 60 12/26/24 07:32 Intake & Output 12/29/24 12/29/24 12/30/24 06:59 18:59 06:59 Intake Total 100 780 Output Total 1100 800 Balance 100 -320 -800 Weight 75.5 kg 75.5 kg Intake: Intake, IV Titration 100 Amount Cefepime 2 gm In Sodium 100 Chloride 0.9% 100 ml @ 25 mls/hr IVPB Q8HR [facility] Rx# :[id number] Oral 780 Output: Urine 1100 800 Other: Voiding Method External Catheter External Catheter External Catheter - Labs CBC & Chem 7: 12/30/24 06:25 12/30/24 06:25 Labs: Abnormal Lab Results - Last 24 Hours (Table) 12/29/24 12/29/24 12/29/24 Range/Units 06:55 06:55 11:56 WBC 15.8 H (3.8-10.6) k/uL Hgb 11.8 L (13.0-17.5) gm/dL MCHC 29.8 L (31.0-37.0) g/dL RDW 15.9 H (11.5-15.5) % Neutrophils # 13.8 H (1.3-7.7) k/uL Potassium 3.1 L (3.5-5.1) mmol/L Chloride 109 H (98-107) mmol/L Carbon Dioxide 20 L (22-30) mmol/L BUN 44 H (9-20) mg/dL Creatinine 0.58 L (0.66-1.25) mg/dL Glucose 160 H (74-99) mg/dL POC Glucose (mg/dL) 182 H (70-110) mg/dL 12/29/24 12/29/24 12/30/24 Range/Units 16:19 20:24 06:06 WBC (3.8-10.6) k/uL Hgb (13.0-17.5) gm/dL MCHC (31.0-37.0) g/dL RDW (11.5-15.5) % Neutrophils # (1.3-7.7) k/uL Potassium (3.5-5.1) mmol/L Chloride (98-107) mmol/L Carbon Dioxide (22-30) mmol/L BUN (9-20) mg/dL Creatinine (0.66-1.25) mg/dL Glucose (74-99) mg/dL POC Glucose (mg/dL) 179 H 171 H 199 H (70-110) mg/dL Microbiology - Last 24 Hours (Table) 12/26/24 11:40 Gram Stain - Preliminary Pleural Fluid Body Fluid Culture - Preliminary
[2024-12-31 05:58] LABS: Glucose,Whole Blood 158 mg/dL (70-110)
[2024-12-31 08:18] LABS: Anisocytosis Slight; Basophils % (A) 0 %; Eosinophils % (A) 0 %; HCT 38.4 % (39.0-53.0); HGB 11.5 gm/dL (13.0-17.5); Hypochromasia Slight; Lymphocytes # (A) 1.1 k/uL (1.0-4.8); Lymphocytes % (A) 7 %; MCH 26.8 pg (25.0-35.0); MCHC 30.1 g/dL (31.0-37.0); MCV 89.3 fL (80.0-100.0); Mean Platelet Volume 8.3; Monocytes # (A) 0.5 k/uL (0-1.0); Monocytes % (A) 3 %; Neutrophils # (A) 14.1 k/uL (1.3-7.7); Neutrophils % (A) 89 %; Platelet Count 404 k/uL (150-450); RDW 16.2 % (11.5-15.5)
[2024-12-31 08:32] LABS: African American GFR (CKD) >90 (>60 ml/min/1.73 sqM); Anion Gap 13 mmol/L; Blood Urea Nitrogen 27 mg/dL (9-20); Calcium 8.7 mg/dL (8.4-10.2); Carbon Dioxide 23 mmol/L (22-30); Chloride 111 mmol/L (98-107); Glucose 158 mg/dL (74-99); Magnesium 1.8 mg/dL (1.6-2.3); Non-African American GFR(CKD) >90 (>60 ml/min/1.73 sqM); Potassium 3.3 mmol/L (3.5-5.1); Sodium 147 mmol/L (137-145)
[2024-12-31] MEDS ORDERED: ZINC OXIDE PASTE (Z-GUARD) 1 APPLIC TOPICAL PRN (09:11)
--- NOTE | 2024-12-31 11:35 | XR ---
EXAMINATION TYPE: XR chest 1V portable DATE OF EXAM: 12/31/2024 11:19 AM COMPARISON: Chest radiographs from 12/26/2024, ultrasound chest 12/29/2024, CT chest 12/28/2024 TECHNIQU E: XR chest 1V portable Portable AP radiograph of the chest. CLINICAL INDICATION:Male, 79 years old with history of Post right thoracentesis; FINDINGS: Patient is rotated which limits evaluation. Lungs/Pleura: Small to moderate-sized bilateral pleural effusions with right greater than left. There is associated atelectasis. No sizable pneumothorax. Pulmonary vascularity: Unremarkable. Heart/mediastinum: Cardiomediastinal silhouette is enlarged and stable. Two lead cardiac conduction d evice overlying the left hemithorax with lead tips projecting over the right ventricle and right atri um. Musculoskeletal: No acute osseous pathology. Lines/Tubes: Right IJ Mediport catheter distal tip terminating in the mid SVC. IMPRESSION: Small to moderate sized bilateral pleural effusions with right greater than left. Status post thorace ntesis without sizable pneumothorax. [facility], , 12/31/2024 11:32 AM
[2024-12-31 11:37] LABS: Glucose,Whole Blood 168 mg/dL (70-110)
--- NOTE | 2024-12-31 13:50 | P.PN ---
Subjective Progress Note Date: 12/31/24 This is an 79year-old white male with history of multiple medical problems including diabetes, coronary artery disease, history of congestive heart failure, dyslipidemia, patient was transferred today from [facility] for possible pneumonia and sepsis. Patient presented to the ER with shortness of breath, abnormal chest x-ray showing bilateral pleural effusions patient was noted to have low blood pressure upon his initial evaluation, patient was given fluid boluses at the [place] facility, and he was transferred here more fluids were given. I saw the patient in the ER, patient is on BiPAP, 10/05, patient is already feeling comfortable, he is hemodynamically stable, and I felt that the patient could be admitted to the cardiac floor instead of sending the patient to the ICU. Patient is already receiving broad-spectrum antibiotics, and again his chest x-ray is more suggestive of pulmonary edema underlying pneumonia is not entirely ruled out. History rm, the patient is a very poor historian, not much could be obtained from the patient himself as he seems to be confused. Looking at the chart patient already received 2 to 3 L of fluid boluses prior to my evaluation. CBC showed leukocytosis with WBC count is 14.2 hemoglobin 10.9 patient had an ABG on 50% FiO2 and BiPAP. pO2 of 66 pCO2 29 pH of 7.41. Ultrasound of the chest showed bilateral pleural effusions may have to consider diagnostic and therapeutic thoracentesis however the patient has been on Xarelto which is presently on hold. Electrolytes showed bicarb of 17 BUN of 68 creatinine 1.64 however no baseline creatinine available on this patient. In 2020, there is a report on the transesophageal echocardiogram showing mostly moderate sclerotic and decreased leaflet excursion of the aortic valve, there was also evidence of mild to moderate mitral regurgitation and his ejection fraction at the time was noted to be 50%. In the cardiology note, there is history of coronary artery disease and previous stenting of RCA history of sick sinus syndrome and permanent. Permanent pacemaker placement, he has paroxysmal atrial fibrillation hypertension and moderate severe aortic stenosis. The patient is seen today December 26, 2024 in follow-up on the selective care unit. He is currently resting in bed. Awake and alert in no acute distress. Flow nasal cannula. He has been afebrile. Hemodynamically stable. Ultrasound of the chest revealed a significant 13.1 cm pocket on the right. He did undergo thoracentesis today by Dr. Skinner with 600 mL of yellow cloudy thick fluid removed. Chest x-ray showed significant improvement. No evidence of pneumothorax. Fluid analysis, cultures and cytology pending. White count 15.3. Hemoglobin 10.9. Platelets 374. Sodium 142. Potassium 3.3. Bicarb 22. BUN 76. Creatinine 1.44. Glucose 173. He remains on cefepime and vancomycin. Remains on IV diuretics. Currently in a negative balance. The patient is seen today December 27, 2024 in follow-up on the selective care unit. He is currently resting in bed. Awake and alert in no acute distress. H e is maintaining O2 saturations in the 90s on 8 L high flow nasal cannula. He is afebrile. Hemodynamically stable. He did undergo a right sided thoracentesis yesterday. Fluid is exudate with a total protein greater than 3.6, LDH 1356. Cultures and cytology pending. White count 15.0. Hemoglobin 10.5. Platelets 356. Sodium 144. Potassium 3.2. Bicarb 27. BUN 66. Creatinine 0.94. Glucose 162. C-reactive protein 18.9. He is continued on vancomycin and cefepime. Continued on bronchodilators as needed. Remains on IV diuretics. Anticoagulated with Xarelto. Currently in a -1.4 L balance Seen today on 12/29/2024, patient is basically about the same. On 2 L nasal cannula, blood pressure is a bit elevated 149/84, heart rate is 108, patient has a temp of 98.9, CT of the chest failed to show loculated pleural effusion, however looking at the labs from the pleural effusion, it seems to be quite complicated pleural effusion, almost an empyema although the cultures have been negative. Will plan another thoracentesis on this patient, may actually require pigtail catheter placement for adequate drainage but will proceed with another thoracentesis tomorrow on the right side, if fluid remains quite exudative with elevated LDH and low glucose, I will also recommend a pH on the fluid, may really consider the patient for either a chest tube placement or pigtail catheter. I prefer a pigtail catheter placement but considering the patient is on anticoagulation therapy at this point, interventional radiology will likely decline the procedure. Patient was seen today on 12/30/2024, patient is about the same, today I recommended thoracentesis to be done on the left side, and I am also considering repeat thoracentesis on the right side, and he continues to have fairly good sized pleural effusions based on his CT of the chest and based on his ultrasound of the chest. I asked the patient to proceed with thoracentesis today, however he declined. I am concerned that this is a complicated parapneumonic pleural effusion, may have to consider even a pigtail catheter placement, but patient is refusing even a thoracentesis at this point. His WBC count today 13.7 hemoglobin 11 electrolytes are normal except for potassium of 3.2 renal profile is normal patient remains on antibiotics as per infectious disease on the case. The patient is seen today December 31, 2024 in follow-up on the selective care unit. He is currently awake and alert. Drifts off easily. Family is at the bedside. He is maintaining O2 saturations in the 90s on 3 L/min per nasal cannula. He is afebrile. Hemodynamically stable. He did undergo another right sided thoracentesis today with 750 mL of fluid removed. Continues to show bilateral pleural effusions. Improved on the right. No evidence of pneumothorax. Pleural fluid cultures revealed no growth. Cytology was negative for malignancy. White count 16.0. Hemoglobin 11.5. Platelets 404. Sodium 147. Potassium 3.3. Bicarb 23. BUN 1327. Creatinine 0.64. Glucose 158. He remains on vancomycin and cefepime. Continued on IV diuretics. Currently in a -1.8 L balance. Objective - Vital Signs Vital signs: Vital Signs Temp 98 F 12/31/24 11:55 Pulse 95 12/31/24 11:55 Resp 17 12/31/24 11:55 BP 133/74 12/31/24 11:55 Pulse Ox 97 12/31/24 11:55 FiO2 60 12/26/24 07:32 Intake & Output 12/30/24 12/31/24 12/31/24 18:59 06:59 18:59 Output Total 1050 800 450 Balance -1050 -800 -450 Weight 75.5 kg Output: Urine 1050 800 450 Other: Voiding Method External Catheter External Catheter External Catheter - Exam GENERAL EXAM: Alert, weak, frail 79-year-old male, resting in bed, on 3 L nasal cannula, comfortable in no apparent distress. HEAD: Normocephalic. EYES: Normal reaction of pupils, equal size. NOSE: Clear with pink turbinates. THROAT: No erythema or exudates. NECK: No masses, no JVD. CHEST: No chest wall deformity. LUNGS: Equal air entry with bibasilar crackles right greater than left. CVS: S1 and S2 normal with no audible murmur, regular rhythm. ABDOMEN: No hepatosplenomegaly, normal bowel sounds, no guarding or rigidity. SPINE: No scoliosis or deformity SKIN: No rashes CENTRAL NERVOUS SYSTEM: Left-sided weakness, tone is normal in all 4 extremities. EXTREMITIES: There is no peripheral edema. No clubbing, no cyanosis. Peripheral pulses are intact. - Labs CBC & Chem 7: 12/31/24 07:18 12/31/24 07:18 Labs: Abnormal Lab Results - Last 24 Hours (Table) 12/30/24 12/30/24 12/31/24 Range/Units 16:38 20:09 05:56 WBC (3.8-10.6) k/uL Hgb (13.0-17.5) gm/dL Hct (39.0-53.0) % MCHC (31.0-37.0) g/dL RDW (11.5-15.5) % Neutrophils # (1.3-7.7) k/uL Sodium (137-145) mmol/L Potassium (3.5-5.1) mmol/L Chloride (98-107) mmol/L BUN (9-20) mg/dL Creatinine (0.66-1.25) mg/dL Glucose (74-99) mg/dL POC Glucose (mg/dL) 183 H 210 H 158 H (70-110) mg/dL 12/31/24 12/31/24 12/31/24 Range/Units 07:18 07:18 11:35 WBC 16.0 H (3.8-10.6) k/uL Hgb 11.5 L (13.0-17.5) gm/dL Hct 38.4 L (39.0-53.0) % MCHC 30.1 L (31.0-37.0) g/dL RDW 16.2 H (11.5-15.5) % Neutrophils # 14.1 H (1.3-7.7) k/uL Sodium 147 H (137-145) mmol/L Potassium 3.3 L (3.5-5.1) mmol/L Chloride 111 H (98-107) mmol/L BUN 27 H (9-20) mg/dL Creatinine 0.64 L (0.66-1.25) mg/dL Glucose 158 H (74-99) mg/dL POC Glucose (mg/dL) 168 H (70-110) mg/dL Microbiology - Last 24 Hours (Table) 12/26/24 11:40 Gram Stain - Final Pleural Fluid Body Fluid Culture - Final Assessment and Plan Assessment: Acute hypoxic respiratory failure secondary to bilateral pleural effusions, suspect acute systolic congestive heart failure. Right-sided thoracentesis performed December 26, 2024 with 600 mL of cloudy thick yellow fluid returned. Fluid is exudate. Cultures revealed no growth and cytology for malignancy. A second right sided thoracentesis performed today December 31, 2024 with 750 mL of fluid returned. Not sent for analysis. Possible underlying bacterial pneumonia. Procalcitonin 20.3. Continued on vancomycin and cefepime Moderate aortic stenosis Mild mitral regurgitation History of coronary artery disease and previous stent placement History of sick sinus syndrome Chronic atrial fibrillation Plan: The patient was seen and evaluated Labs and medications reviewed Currently on 3 L nasal cannula Titrate down the FiO2 as tolerated A second right sided thoracentesis performed today 750 mL of fluid removed Not sent for analysis Continued on vancomycin and cefepime Continue bronchodilators Continue IV diuretics Follow-up ultrasound of the chest in a.m. May need pigtail catheter placements We will continue to follow I have personally seen and examined the patient, performed the documentation and the assessment and plan as written. Number of minutes spent on the visit: 10 Dictation was produced using u[employer]sit dictation software. Please excuse any grammatical, word or spelling errors..
--- NOTE | 2024-12-31 14:44 | P.PN ---
Subjective Progress Note Date: 12/30/24 Principal diagnosis: Reason for follow-up is elevated procalcitonin/pneumonia Patient is a 79-year-old male with a past medical history significant for diabetes mellitus hypertension hyperlipidemia atrial fibrillation skin cancer presenting to the hospital for evaluation of increasing shortness of breath patient did have bilateral effusion status post thoracocentesis on the right size did have elevated Pro-Flex concerning for pneumonia prompting this consultation. On today's evaluation that is 12/30/2024, patient did not have any fever and denies any chills, patient is breathing comfortably on 3 L current oxygen, patient with no chest pain or cough no vomiting or diarrhea has been reported. Patient white count is down to 13.7, creatinine 0.61 Objective - Vital Signs Vital signs: Vital Signs Temp 98.2 F 12/30/24 08:10 Pulse 92 12/30/24 15:34 Resp 17 12/30/24 12:00 BP 141/75 12/30/24 12:00 Pulse Ox 94 L 12/30/24 12:00 FiO2 60 12/26/24 07:32 Intake & Output 12/29/24 12/30/24 12/30/24 18:59 06:59 18:59 Intake Total 780 Output Total 1100 800 Balance -320 -800 Weight 75.5 kg Intake: Oral 780 Output: Urine 1100 800 Other: Voiding Method External Catheter External Catheter External Catheter - Exam GENERAL DESCRIPTION: An elderly male lying in bed in no distress RESPIRATORY SYSTEM: Unlabored breathing , decreased breath sounds at bases HEART: S1 S2 regular rate and rhythm , ABDOMEN: Soft , no tenderness EXTREMITIES: No edema feet - Labs CBC & Chem 7: 12/31/24 07:18 12/31/24 07:18 Labs: Abnormal Lab Results - Last 24 Hours (Table) 12/29/24 12/29/24 12/30/24 Range/Units 16:19 20:24 06:06 WBC (3.8-10.6) k/uL RBC (4.30-5.90) m/uL Hgb (13.0-17.5) gm/dL Hct (39.0-53.0) % MCHC (31.0-37.0) g/dL RDW (11.5-15.5) % Neutrophils # (1.3-7.7) k/uL Potassium (3.5-5.1) mmol/L Chloride (98-107) mmol/L BUN (9-20) mg/dL Creatinine (0.66-1.25) mg/dL Glucose (74-99) mg/dL POC Glucose (mg/dL) 179 H 171 H 199 H (70-110) mg/dL Magnesium (1.6-2.3) mg/dL 12/30/24 12/30/24 12/30/24 Range/Units 06:25 06:25 11:27 WBC 13.7 H (3.8-10.6) k/uL RBC 4.08 L (4.30-5.90) m/uL Hgb 11.0 L (13.0-17.5) gm/dL Hct 36.4 L (39.0-53.0) % MCHC 30.1 L (31.0-37.0) g/dL RDW 16.1 H (11.5-15.5) % Neutrophils # 11.9 H (1.3-7.7) k/uL Potassium 3.2 L (3.5-5.1) mmol/L Chloride 111 H (98-107) mmol/L BUN 33 H (9-20) mg/dL Creatinine 0.61 L (0.66-1.25) mg/dL Glucose 175 H (74-99) mg/dL POC Glucose (mg/dL) 160 H (70-110) mg/dL Magnesium 1.5 L (1.6-2.3) mg/dL Microbiology - Last 24 Hours (Table) 12/26/24 11:40 Gram Stain - Preliminary Pleural Fluid Body Fluid Culture - Preliminary Assessment and Plan (1) Pleural effusion Current Visit: Yes Status: Acute Code(s): J90 - PLEURAL EFFUSION, NOT ELSEWHERE CLASSIFIED SNOMED Code(s): 80405743 (2) Pneumonia Current Visit: Yes Status: Acute Code(s): J18.9 - PNEUMONIA, UNSPECIFIED ORGANISM SNOMED Code(s): 187731616 Plan: 1patient presented to hospital with increasing shortness of breath cough and this patient did have evidence of bilateral effusion patient also have elevated procalcitonin concerning for possible pneumonia with a parapneumonic effusion. 2patient is status post thoracocentesis and the fluid has been sent for culture which which is currently pending 3patient vancomycin level is therapeutic creatinine is normal white count is do wn to 13,000 patient currently being treated with vancomycin and cefepime while waiting for the culture to finalize and monitor clinical course closely. Dictation was produced using [employer] dictation software. please excuse any grammatical, word or spelling errors. Time with Patient: Less than 30
--- NOTE | 2024-12-31 14:45 | P.PN ---
Subjective Progress Note Date: 12/31/24 Principal diagnosis: Reason for follow-up is elevated procalcitonin/pneumonia Patient is a 79-year-old male with a past medical history significant for diabetes mellitus hypertension hyperlipidemia atrial fibrillation skin cancer presenting to the hospital for evaluation of increasing shortness of breath patient did have bilateral effusion status post thoracocentesis on the right size did have elevated Pro-Flex concerning for pneumonia prompting this consultation. Patient did have initial thoracocentesis on the right side with removal of 600 cc of fluid, patient did have repeat thoracocentesis on the right side on 12/31/2024 with removal of 750 cc of fluid. On today's evaluation that is 12/31/2024, Patient is afebrile patient is currently on 3 L current oxygen and is breathing comfortably in no distress sleepy did not provide reliable history no significant changes reported by the nursing staff. Patient white count is up to 16,000, creatinine 0.64 Objective - Vital Signs Vital signs: Vital Signs Temp 98 F 12/31/24 11:55 Pulse 95 12/31/24 11:55 Resp 17 12/31/24 11:55 BP 133/74 12/31/24 11:55 Pulse Ox 97 12/31/24 11:55 FiO2 60 12/26/24 07:32 Intake & Output 12/30/24 12/31/24 12/31/24 18:59 06:59 18:59 Output Total 1050 800 450 Balance -1050 -800 -450 Weight 75.5 kg Output: Urine 1050 800 450 Other: Voiding Method External Catheter External Catheter External Catheter - Exam GENERAL DESCRIPTION: An elderly male lying in bed in no distress RESPIRATORY SYSTEM: Unlabored breathing , decreased breath sounds at bases HEART: S1 S2 regular rate and rhythm , ABDOMEN: Soft , no tenderness EXTREMITIES: No edema feet - Labs CBC & Chem 7: 12/31/24 07:18 12/31/24 07:18 Labs: Abnormal Lab Results - Last 24 Hours (Table) 12/30/24 12/30/24 12/31/24 Range/Units 16:38 20:09 05:56 WBC (3.8-10.6) k/uL Hgb (13.0-17.5) gm/dL Hct (39.0-53.0) % MCHC (31.0-37.0) g/dL RDW (11.5-15.5) % Neutrophils # (1.3-7.7) k/uL Sodium (137-145) mmol/L Potassium (3.5-5.1) mmol/L Chloride (98-107) mmol/L BUN (9-20) mg/dL Creatinine (0.66-1.25) mg/dL Glucose (74-99) mg/dL POC Glucose (mg/dL) 183 H 210 H 158 H (70-110) mg/dL 12/31/24 12/31/24 12/31/24 Range/Units 07:18 07:18 11:35 WBC 16.0 H (3.8-10.6) k/uL Hgb 11.5 L (13.0-17.5) gm/dL Hct 38.4 L (39.0-53.0) % MCHC 30.1 L (31.0-37.0) g/dL RDW 16.2 H (11.5-15.5) % Neutrophils # 14.1 H (1.3-7.7) k/uL Sodium 147 H (137-145) mmol/L Potassium 3.3 L (3.5-5.1) mmol/L Chloride 111 H (98-107) mmol/L BUN 27 H (9-20) mg/dL Creatinine 0.64 L (0.66-1.25) mg/dL Glucose 158 H (74-99) mg/dL POC Glucose (mg/dL) 168 H (70-110) mg/dL Microbiology - Last 24 Hours (Table) 12/26/24 11:40 Gram Stain - Final Pleural Fluid Body Fluid Culture - Final Assessment and Plan (1) Pleural effusion Current Visit: Yes Status: Acute Code(s): J90 - PLEURAL EFFUSION, NOT E LSEWHERE CLASSIFIED SNOMED Code(s): 30449723 (2) Pneumonia Current Visit: Yes Status: Acute Code(s): J18.9 - PNEUMONIA, UNSPECIFIED ORGANISM SNOMED Code(s): 138556477 Plan: 1patient presented to hospital with increasing shortness of breath cough and this patient did have evidence of bilateral effusion patient also have elevated procalcitonin concerning for possible pneumonia with a parapneumonic effusion. 2patient is status post thoracocentesis and the fluid has been sent for culture which are negative so far 3white count is still elevated with culture negative for resistant pathogen we will discontinue vancomycin and cefepime start the patient on Unasyn and see clinical response Dictation was produced using [employer] dictation software. please excuse any grammatical, word or spelling errors. Time with Patient: Less than 30
[2024-12-31 16:37] LABS: Glucose,Whole Blood 358 mg/dL (70-110)
[2024-12-31] MEDS: AMPICILLIN-SULBACTAM 3 GM in SODIUM CHLORIDE 0.9% 100 ML IVPB SCH (16:47)
[2024-12-31 19:55] LABS: Glucose,Whole Blood 263 mg/dL (70-110)
[2024-12-31] MEDS ORDERED: VANCOMYCIN TROUGH DUE 1 EACH MISC MISCELLANE ONE (23:00)
[2024-12-31] MEDS: POTASSIUM CHLORIDE 10 MEQ in WATER FOR INJECTION 1 100ML.BAG IVPB SCH (23:55)
--- NOTE | 2025-01-01 03:38 | P.PN ---
Subjective Progress Note Date: 12/31/24 This is a 79-year-old male who presented to the emergency department as a transfer from [facility] with significant shortness of breath on BiPAP with concerns of CHF exacerbation as well as possible pneumonia. Patient has been started on antibiotics in the form of cefepime and vancomycin. Will obtain procalcitonin. Pulmonary molder helper has been consulted as patient will likely be going to ICU dependent on BiPAP currently. Patient's FiO2 is 50% with a PEEP of 5. Chest x-ray showing bilateral pleural effusions and there is discussion of the possible need for thoracentesis. On admission here, white count is elevated at 14.2, hemoglobin is stable at 10.9, platelets are 369, ABG shows a pH of 7.41, pCO2 is 29, pO2 66, bicarb is 18, sodium 141 with a potassium of 3.7, BUN 68 and creatinine up at 1.64, glucose 138, lactic acid 3.9, magnesium 1.5, troponin 0.096, BNP is 4230. Patient again being admitted to the ICU with pulmonary molder helper as well as cardiology on consult. 2D echo is ordered and pending at this time. 12/27/2024 Patient is seen in follow-up today with multiple consultations following including pulmonary, infectious disease, cardiology. Patient continues on BiPAP and transitioning to high flow oxygen at 10 L. Patient resides at [facility] and will be returning there on discharge. Apparently patient does not wear oxygen at the ECF. Weaning as tolerated and patient is also status post thoracentesis on the right with pulmonary today at bedside. Will await cultures and patient also maintained on antibiotics in the form of cefepime and vancomycin with infectious disease following. 12/28/2024 Patient is seen in follow-up today maintained on high flow although is transitioning down from 6 L to 5 L and tolerating. Patient reports he feels slightly improved although feels significantly weak and continues with some shortness of breath. Patient reports to eating a little more and tolerating diet with no reported nausea or vomiting. Pulmonary following and CT chest is ordered for evaluation of possible reaccumulation or loculation of the pleural effusion. Patient is afebrile and maintained on IV antibiotics and will continue. Cardiology and infectious disease following as well. 12/29/2024 Patient is seen in follow-up today and is weaning FiO2 as tolerated doing relatively well currently on 2 L via nasal cannula. Patient continues to have shortness of breath with multiple consultations following including pulmonary and CT chest was done likely complicated pleural effusion although did not show much of a loculation. Patient continues with bilateral effusions worse on the right and previous thoracentesis was exudative although cultures are negative thus far, cytology is negative. Plans for possible thoracentesis again on 025. Will await report. 12/30/2024 Patient is seen in follow-up today with pulmonary following. Plans for possible thoracentesis on the right again although per nursing staff, patient refused. Unsure why he refused as patient had 1 recently this admission and did relatively well. Patient admits extreme weakness recommend sitting up in the chair more frequently. Patient is reporting continued shortness of breath, fatigue, and lower back pain. Discussed with family at length regarding treatme nt plan and refusal of care and discussed CODE STATUS and daughter along with reported he was no code although apparently per [facility] paperwork patient wishes to be full code. Patient most likely with underlying dementia does not appear capable of making his own decisions. Pulmonary to reattempt thoracentesis in the a.m. Will continue on IV Lasix twice daily. Replace potassium and magnesium today. Per nursing staff patient was also refusing to take medications. 12/31/2024 Patient is seen in follow-up today continues to have pleural effusions and is status post repeat right side thoracentesis with approximately 750 cc of serosanguineous fluid removed at bedside. Patient is continued on 2 to 3 L via nasal cannula and tolerating with oxygen saturations above 90%. Patient is ext remely weak and debilitated and clinically declining other than improving on his oxygen demand. Patient is not eating very much and has not gotten up and out of the bed. Family at the bedside with questions and concerns that were answered to the best of our ability. CODE STATUS was addressed and family will discuss further. Continue IV Lasix twice daily and replace electrolytes per protocol. Will follow-up on repeat labs. Review of systems: Constitutional: reports of fatigue, no fever, or chills Cardiovascular: No reports of chest pain or palpitations Respiratory: reports of shortness of breath and weak cough GI: reports of occasional nausea, no vomiting, or diarrhea, reports not feeling hungry and not much of an appetite : No reports of dysuria or retention Neurovascular: reports of generalized weakness All medications have been reviewed The rest of the 14-point review of systems is negative. PHYSICAL EXAMINATION: GENERAL: The patient is alert and oriented x 2, lethargic, extremely raspy and soft-spoken although is answering questions appropriately and following comman ds. Currently on 2 to 3 L via nasal cannula, well-developed, elderly appearing, ill-appearing, thin built HEENT: Pupils are round and equally reacting to light. EOMI. No scleral icterus. No conjunctival pallor. Normocephalic, atraumatic. No pharyngeal erythema. No thyromegaly. CARDIOVASCULAR: S1 and S2 muffled PULMONARY: Diminished breath sounds bilaterally worse on the right with some scattered expiratory wheezing as well as crackles noted at the bases. ABDOMEN: Soft, nontender, nondistended, normoactive bowel sounds. No palpable organomegaly. MUSCULOSKELETAL: No joint swelling or deformity. EXTREMITIES: No cyanosis, clubbing, or pedal edema. NEUROLOGICAL: Gross neurological examination did not reveal any focal deficits. Diffusely weak SKIN: No rashes. Assessment: Shortness of breath, multifactorial secondary to complex bilateral pleural effusions, greater on the right as well as possible pneumonia, unlikely CHF Leukocytosis with tachycardia and elevated white count, sepsis, present on admission secondary to pneumonia Elevated troponin, 0.096, likely type II secondary to infection Lactic acidosis secondary to sepsis Elevated kidney functions, acute renal failure, improving Acute systolic heart failure with an EF of 40 to 45% Hypomagnesemia, replaced and improving History of atrial fibrillation, currently on Xarelto which will be held for possible thoracentesis on 12/31/2024 Bilateral pleural effusions, status post thoracentesis on the right x 2 with 750 mL removed of serosanguineous fluid today on 12/31/2024. Complex parapneumonic effusion per pulmonary History of coronary artery disease with previous stenting Diabetes mellitus, type II, insulin-dependent History of sick sinus syndrome, status post permanent pacemaker previously Hyperlipidemia Hypertension Former tobacco use GI prophylaxis DVT prophylaxis Full code Plan: Patient was sent here from [facility] for further evaluation on BiPAP, with severe shortness of breath, currently improving and FiO2 is being weaned currently on 2 L via nasal cannula Encouraged incentive spirometer use at least 10 times every hour while awake, patient needs reinforcement and also assistance as patient is significantly weak. Cardiology and pulmonary following as patient was BiPAP dependent with concerns of sepsis, present on admission. Patient is continued on cefepime as well as vancomycin, infectious disease following and cultures thus far are negative. Patient is status post thoracentesis and specimen was sent and negative for malignancy. Right side thoracentesis with approximately 600 mL removed of exudative thick yellow fluid concerning for empyema and infection, less likely CHF exacerbation per cardiology. Patient is status post repeat thoracentesis on the right today 12/31/2024 with serosanguineous fluid approximately 750 cc taken. Not sent for analysis. Previous thoracentesis earlier this week was negative. Xarelto remains on hold for now. Patient may need a Pleurx catheter. Also being evaluated for the need for possible left-sided thoracentesis. Chest ultrasound ordered on the left Patient is a diabetic and will continue Accu-Cheks before meals and at bedtime as well as 2 AM and sliding scale. 2D echo shows an EF of 40 to 45% with moderate aortic stenosis and mild aortic regurgitation noted along with moderate pulmonary hypertension Appropriate home medications have been reviewed and resumed Pacemaker interrogated with cardiology following, patient maintained on IV Lasix and will continue twice daily and will monitor kidney functions and electrolytes closely. BNP was 4990 CODE STATUS was addressed and discussed with family including daughter and and they report he was no code although per [facility] paperwork, CODE STATUS reports he is full code. Patient does not appear to be of sound mind to be making these decisions and most likely underlying dementia. Per daughter [facility] reports he is capable of making decisions himself. Family will discuss further as daughter was at the bedside today Follow-up on repeat labs and replace electrolytes per protocol. Case management following and plan will be to return to [facility] on discharge where he resides. The impression and plan of care has been dictated by Nikki Joseph, Nurse Practitioner as directed. Dr. Petros MD I have performed a history and examination and MDM of this patient, discussed the same with the dictator, and agree with the dictator's assessment and plan as written ,documented as a scribe. Based on total visit time, I have performed more than 50% of the visit. Objective - Vital Signs Vital signs: Vital Signs Temp 98.4 F 12/30/24 20:30 Pulse 90 12/31/24 08:48 Resp 18 12/31/24 04:30 BP 145/81 12/31/24 04:30 Pulse Ox 92 L 12/31/24 04:30 FiO2 60 12/26/24 07:32 Intake & Output 12/30/24 12/31/24 12/31/24 18:59 06:59 18:59 Output Total 1050 800 Balance -1050 -800 Weight 75.5 kg Output: Urine 1050 800 Other: Voiding Method External Catheter External Catheter - Labs CBC & Chem 7: 12/31/24 07:18 12/31/24 07:18 Labs: Abnormal Lab Results - Last 24 Hours (Table) 12/30/24 12/30/24 12/30/24 Range/Units 11:27 16:38 20:09 WBC (3.8-10.6) k/uL Hgb (13.0-17.5) gm/dL Hct (39.0-53.0) % MCHC (31.0-37.0) g/dL RDW (11.5-15.5) % Neutrophils # (1.3-7.7) k/uL Sodium (137-145) mmol/L Potassium (3.5-5.1) mmol/L Chloride (98-107) mmol/L BUN (9-20) mg/dL Creatinine (0.66-1.25) mg/dL Glucose (74-99) mg/dL POC Glucose (mg/dL) 160 H 183 H 210 H (70-110) mg/dL 12/31/24 12/31/24 12/31/24 Range/Units 05:56 07:18 07:18 WBC 16.0 H (3.8-10.6) k/uL Hgb 11.5 L (13.0-17.5) gm/dL Hct 38.4 L (39.0-53.0) % MCHC 30.1 L (31.0-37.0) g/dL RDW 16.2 H (11.5-15.5) % Neutrophils # 14.1 H (1.3-7.7) k/uL Sodium 147 H (137-145) mmol/L Potassium 3.3 L (3.5-5.1) mmol/L Chloride 111 H (98-107) mmol/L BUN 27 H (9-20) mg/dL Creatinine 0.64 L (0.66-1.25) mg/dL Glucose 158 H (74-99) mg/dL POC Glucose (mg/dL) 158 H (70-110) mg/dL Microbiology - Last 24 Hours (Table) 12/26/24 11:40 Gram Stain - Final Pleural Fluid Body Fluid Culture - Final
[2025-01-01 06:23] LABS: Glucose,Whole Blood 202 mg/dL (70-110)
[2025-01-01 07:46] LABS: Anisocytosis Slight; Basophils % (A) 0 %; Eosinophils # (A) 0.1 k/uL (0-0.7); Eosinophils % (A) 0 %; HCT 38.6 % (39.0-53.0); HGB 11.7 gm/dL (13.0-17.5); Hypochromasia Marked; Lymphocytes # (A) 1.3 k/uL (1.0-4.8); Lymphocytes % (A) 9 %; MCH 27.5 pg (25.0-35.0); MCHC 30.2 g/dL (31.0-37.0); Mean Platelet Volume 7.8; Monocytes # (A) 0.5 k/uL (0-1.0); Monocytes % (A) 4 %; Neutrophils # (A) 12.6 k/uL (1.3-7.7); Neutrophils % (A) 86 %; Platelet Count 412 k/uL (150-450); RBC 4.25 m/uL (4.30-5.90); RDW 16.2 % (11.5-15.5); WBC 14.6 k/uL (3.8-10.6)
--- NOTE | 2025-01-01 07:47 | US ---
EXAMINATION TYPE: US chest DATE OF EXAM: 01/01/2025 COMPARISON: Multiple, most recent US 12/29/2024 CLINICAL INDICATION: Male, 79 years old with history of Pleural effusion; Patient not awake for exam and unable to set up TECHNIQUE: Grayscale imaging of the chest. Targeted ultrasound of the posterior lower bilateral lianna thoraces FINDINGS: EXAM MEASUREMENTS: Right Pleural Effusion pocket size: 1.8 cm Right skin surface to fluid distance: 2.0 cm Left Pleural Effusion pocket size: 1.6 cm Left skin surface to fluid distance: 3.9 cm Right side not marked for possible thoracentesis outside the dept. Left side marked for possible thoracentesis outside the dept. Pulmonologists are able to review the images in the patient?s EMR. IMPRESSIONS: Small bilateral pleural effusions with left greater than right. [facility], , 01/01/2025 7:45 AM
[2025-01-01 08:00] LABS: African American GFR (CKD) >90 (>60 ml/min/1.73 sqM); Anion Gap 12 mmol/L; Blood Urea Nitrogen 29 mg/dL (9-20); Calcium 8.5 mg/dL (8.4-10.2); Carbon Dioxide 24 mmol/L (22-30); Chloride 112 mmol/L (98-107); Glucose 194 mg/dL (74-99); Non-African American GFR(CKD) 86 (>60 ml/min/1.73 sqM); Potassium 3.4 mmol/L (3.5-5.1); Sodium 148 mmol/L (137-145)
--- NOTE | 2025-01-01 08:17 | OP ---
OPERATIVE REPORT DATE OF SERVICE : PROCEDURE PERFORMED: Right-sided thoracentesis. PREOPERATIVE DIAGNOSIS: Right-sided pleural effusion. POSTOPERATIVE DIAGNOSIS: Right-sided pleural effusion. ANESTHESIA USED: 2 mL of 1% lidocaine. PROCEDURE: The patient was placed in the sitting upright position, the area below the right scapula was prepared in a sterile fashion. Drapes were applied. The area of the marking was placed basically at the level of 9th intercostal space and tip of the scapula. The area was locally anesthetized with lidocaine. After preparing that in a sterile fashion. Then, the 26-gauge needle was inserted at the same site and advanced into the pleural space. Fluid was localized. Then, a small tiny incision was made, and a standard thoracentesis catheter and needle advanced into the pleural space, and freely flowing fluid was removed, and roughly about 600 mL of serosanguineous fluid was removed from the right pleural space. Procedure was well tolerated, no complications, fluid was not sent for different diagnostic studies mostly because it was already sent from prior thoracentesis. MMODL / IJN: [id number] /
[2025-01-01] MEDS: POTASSIUM CHLORIDE 10 MEQ in WATER FOR INJECTION 1 100ML.BAG IVPB SCH (11:13)
[2025-01-01 11:36] LABS: Glucose,Whole Blood 221 mg/dL (70-110)
--- NOTE | 2025-01-01 12:34 | P.NPCON ---
History of Present Illness - Reason for Consult hypernatremia - History of Present Illness Patient is an 79-year-old male who was admitted to the hospital with shortness of breath and is currently being treated for volume overload and CHF exacerbation as well as pneumonia. Oxygen requirements have decreased since admission. Patient has had right thoracentesis Currently maintained on IV Lasix. Serum sodium has been slowly increasing and is up to 148 today. Urine output at 1900 mL for 24 hours. He has an external catheter. Chest x-ray on 12/31/2024 shows bilateral pleural effusions with unremarkable p ulmonary vascularity. Blood pressure is not low O2 sats 96% on 2 L nasal cannula Patient does not communicate much Past Medical History Past Medical History: Atrial Fibrillation, Coronary Artery Disease (CAD), Cancer, Diabetes Mellitus, Hyperlipidemia, Hypertension Additional Past Medical History / Comment(s): See Dr Ybarra's H&P. 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 History of Any Multi-Drug Resistant Organisms: None Reported Past Surgical History: Heart Catheterization, Heart Catheterization With Stent, Orthopedic Surgery, Prostate Surgery Additional Past Surgical History / Comment(s): Right shoulder surgery, bilateral cataracts removed, TURP, TREMAINE. Past Anesthesia/Blood Transfusion Reactions: Previous Problems w/ Anesthesia Additional Past Anesthesia/Blood Transfusion Reaction / Comment(s): Difficulty waking up after prostate surgery-"TOOK LONGER TO WAKE UP." Date of Last Stent Placement:: Past Psychological History: No Psychological Hx Reported Smoking Status: Former smoker Past Alcohol Use History: None Reported Past Drug Use History: None Reported - Past Family History Mother Family Medical History: No Reported History Father Family Medical History: Coronary Artery Disease (CAD) Medications and Allergies Home Medications Medication Instructions Recorded Confirmed Type Furosemide [Lasix] 20 mg PO DAILY 02/27/19 12/25/24 History Pioglitazone HCl [Actos] 15 mg PO DAILY 02/27/19 12/25/24 History Rivaroxaban [Xarelto] 15 mg PO HS 02/27/19 12/25/24 History Acetaminophen [Tylenol] 650 mg PO Q4H PRN 12/25/24 12/25/24 History Ascorbic Acid [Vitamin C] 500 mg PO DAILY 12/25/24 12/25/24 History Atorvastatin [Lipitor] 40 mg PO HS 12/25/24 12/25/24 History Escitalopram [Lexapro] 10 mg PO DAILY 12/25/24 12/25/24 History Ferrous Sulfate [Feosol] 325 mg PO DAILY 12/25/24 12/25/24 History Finasteride [Proscar] 5 mg PO DAILY 12/25/24 12/25/24 History Losartan [Cozaar] 25 mg PO DAILY 12/25/24 12/25/24 History Methenamine Hippurate [Hiprex] 1 gm PO BID 12/25/24 12/25/24 History Muscle Rub External Cream 10-15% 1 applic TOPICAL Q6H PRN 12/25/24 12/25/24 History Ranolazine [Ranexa] 500 mg PO BID 12/25/24 12/25/24 History Tamsulosin [Flomax] 0.4 mg PO DAILY 12/25/24 12/25/24 History bisacodyL [Dulcolax] 10 mg PO DAILY PRN 12/25/24 12/25/24 History metFORMIN HCL [Glucophage] 500 mg PO TID 12/25/24 12/25/24 History Allergies Allergy/AdvReac Type Severity Reaction Status Date / Time No Known Allergies Allergy Verified 12/25/24 13:18 Physical Exam Vitals: Vital Signs Temp Pulse Pulse Resp BP Pulse Ox 01/01/25 11:50 107 H 01/01/25 11:38 109 H 01/01/25 11:19 98.3 F 105 H 18 126/81 96 01/01/25 08:20 98.1 F 110 H 16 131/75 98 01/01/25 08:11 106 H 01/01/25 08:04 96 01/01/25 08:03 109 H 01/01/25 04:30 86 18 125/73 95 12/31/24 23:05 98 18 127/72 95 12/31/24 19:53 92 12/31/24 19:50 97.5 F L 91 18 124/75 96 12/31/24 19:47 89 12/31/24 16:12 90 12/31/24 16:03 89 12/31/24 16:00 98.8 F 99 18 116/75 92 L Intake and Output 12/31/24 01/01/25 01/01/25 22:59 06:59 14:59 Output Total 800 300 800 Balance -800 -300 -800 Output: Urine 800 300 800 Other: Voiding Method External Catheter External Catheter External Catheter Weight 67.5 kg Patient is sleeping but arousable. Does not communicate much. Examination of the heart S1 and S2 Examination of the lungs bilateral breath sounds are heard Abdomen is soft nontender Examination of lower extremities shows no significant edema Results - Lab Results Most recent lab results ABG pH 7.41 (7.35-7.45) 12/25/24 13:56 ABG pCO2 29 mmHg (35-45) L 12/25/24 13:56 ABG pO2 66 mmHg (83-108) L 12/25/24 13:56 ABG HCO3 18 mmol/L (21-25) L 12/25/24 13:56 ABG O2 Saturation 91.9 % (94-97) L 12/25/24 13:56 Calcium 8.5 mg/dL (8.4-10.2) 01/01/25 07:05 Magnesium 1.8 mg/dL (1.6-2.3) 12/31/24 07:18 01/01/25 07:05 01/01/25 07:05 Assessment and Plan Assessment: 1. Hypernatremia associated with free water deficit. Patient has recently been diuresed. Volume status has improved. He has poor oral intake. No significant polyuria noted. 2. Volume overload, improved since admission 3. Bilateral pleural effusions, status post right thoracentesis on 12/31/2024 wi th 750 mL of fluid removed 4. Pneumonia maintained on antibiotics Plan: Decrease Lasix Encourage increased oral free water intake, discussed with nursing staff Add D5W for about 24 hours at 50 cc an hour. Repeat labs in a.m. Thank you for the consultation. We will continue to follow the patient with you during his hospitalization.
[2025-01-01] MEDS: DEXTROSE 5% IN WATER 1,000 ML IV ONE (12:43)
--- NOTE | 2025-01-01 14:38 | P.PN ---
Subjective Progress Note Date: 01/01/25 This is an 79year-old white male with history of multiple medical problems including diabetes, coronary artery disease, history of congestive heart failure, dyslipidemia, patient was transferred today from [facility] for possible pneumonia and sepsis. Patient presented to the ER with shortness of breath, abnormal chest x-ray showing bilateral pleural effusions patient was noted to have low blood pressure upon his initial evaluation, patient was given fluid boluses at the [place] facility, and he was transferred here more fluids were given. I saw the patient in the ER, patient is on BiPAP, 10/05, patient is already feeling comfortable, he is hemodynamically stable, and I felt that the patient could be admitted to the cardiac floor instead of sending the patient to the ICU. Patient is already receiving broad-spectrum antibiotics, and again his chest x-ray is more suggestive of pulmonary edema underlying pneumonia is not entirely ruled out. History rm, the patient is a very poor historian, not much could be obtained from the patient himself as he seems to be confused. Looking at the chart patient already received 2 to 3 L of fluid boluses prior to my evaluation. CBC showed leukocytosis with WBC count is 14.2 hemoglobin 10.9 patient had an ABG on 50% FiO2 and BiPAP. pO2 of 66 pCO2 29 pH of 7.41. Ultrasound of the chest showed bilateral pleural effusions may have to consider diagnostic and therapeutic thoracentesis however the patient has been on Xarelto which is presently on hold. Electrolytes showed bicarb of 17 BUN of 68 creatinine 1.64 however no baseline creatinine available on this patient. In 2020, there is a report on the transesophageal echocardiogram showing mostly moderate sclerotic and decreased leaflet excursion of the aortic valve, there was also evidence of mild to moderate mitral regurgitation and his ejection fraction at the time was noted to be 50%. In the cardiology note, there is history of coronary artery disease and previous stenting of RCA history of sick sinus syndrome and permanent. Permanent pacemaker placement, he has paroxysmal atrial fibrillation hypertension and moderate severe aortic stenosis. The patient is seen today December 26, 2024 in follow-up on the selective care unit. He is currently resting in bed. Awake and alert in no acute distress. Flow nasal cannula. He has been afebrile. Hemodynamically stable. Ultrasound of the chest revealed a significant 13.1 cm pocket on the right. He did undergo thoracentesis today by Dr. Skinner with 600 mL of yellow cloudy thick fluid removed. Chest x-ray showed significant improvement. No evidence of pneumothorax. Fluid analysis, cultures and cytology pending. White count 15.3. Hemoglobin 10.9. Platelets 374. Sodium 142. Potassium 3.3. Bicarb 22. BUN 76. Creatinine 1.44. Glucose 173. He remains on cefepime and vancomycin. Remains on IV diuretics. Currently in a negative balance. The patient is seen today December 27, 2024 in follow-up on the selective care unit. He is currently resting in bed. Awake and alert in no acute distress. H e is maintaining O2 saturations in the 90s on 8 L high flow nasal cannula. He is afebrile. Hemodynamically stable. He did undergo a right sided thoracentesis yesterday. Fluid is exudate with a total protein greater than 3.6, LDH 1356. Cultures and cytology pending. White count 15.0. Hemoglobin 10.5. Platelets 356. Sodium 144. Potassium 3.2. Bicarb 27. BUN 66. Creatinine 0.94. Glucose 162. C-reactive protein 18.9. He is continued on vancomycin and cefepime. Continued on bronchodilators as needed. Remains on IV diuretics. Anticoagulated with Xarelto. Currently in a -1.4 L balance Seen today on 12/29/2024, patient is basically about the same. On 2 L nasal cannula, blood pressure is a bit elevated 149/84, heart rate is 108, patient has a temp of 98.9, CT of the chest failed to show loculated pleural effusion, however looking at the labs from the pleural effusion, it seems to be quite complicated pleural effusion, almost an empyema although the cultures have been negative. Will plan another thoracentesis on this patient, may actually require pigtail catheter placement for adequate drainage but will proceed with another thoracentesis tomorrow on the right side, if fluid remains quite exudative with elevated LDH and low glucose, I will also recommend a pH on the fluid, may really consider the patient for either a chest tube placement or pigtail catheter. I prefer a pigtail catheter placement but considering the patient is on anticoagulation therapy at this point, interventional radiology will likely decline the procedure. Patient was seen today on 12/30/2024, patient is about the same, today I recommended thoracentesis to be done on the left side, and I am also considering repeat thoracentesis on the right side, and he continues to have fairly good sized pleural effusions based on his CT of the chest and based on his ultrasound of the chest. I asked the patient to proceed with thoracentesis today, however he declined. I am concerned that this is a complicated parapneumonic pleural effusion, may have to consider even a pigtail catheter placement, but patient is refusing even a thoracentesis at this point. His WBC count today 13.7 hemoglobin 11 electrolytes are normal except for potassium of 3.2 renal profile is normal patient remains on antibiotics as per infectious disease on the case. The patient is seen today December 31, 2024 in follow-up on the selective care unit. He is currently awake and alert. Drifts off easily. Family is at the bedside. He is maintaining O2 saturations in the 90s on 3 L/min per nasal cannula. He is afebrile. Hemodynamically stable. He did undergo another right sided thoracentesis today with 750 mL of fluid removed. Continues to show bilateral pleural effusions. Improved on the right. No evidence of pneumothorax. Pleural fluid cultures revealed no growth. Cytology was negative for malignancy. White count 16.0. Hemoglobin 11.5. Platelets 404. Sodium 147. Potassium 3.3. Bicarb 23. BUN 1327. Creatinine 0.64. Glucose 158. He remains on vancomycin and cefepime. Continued on IV diuretics. Currently in a -1.8 L balance. The patient is seen today January 01, 2025 in follow-up on the selective care unit. He is currently resting in bed. Awake and alert in no acute distress. Maintaining O2 saturations in the 90s on 2 L/min per nasal cannula. He has normal saline at 10 mL/h. He remains on DuoNeb inhalations, antibiotics in the form of Unasyn. Repeat ultrasound of the chest revealed very minimal bilateral pleural effusions with an 1.8 cm pocket on the right and a 1.6 cm pocket on the left. No plans for thoracentesis. Xarelto will be resumed. White count 14.6. Hemoglobin 11.7. Platelets 412. Sodium 148. Potassium 3.4. Bicarb 24. BUN 29. Creatinine 0.75. Glucose 194. Objective - Vital Signs Vital signs: Vital Signs Temp 98.3 F 01/01/25 11:19 Pulse 107 H 01/01/25 11:50 Resp 18 01/01/25 11:19 BP 126/81 01/01/25 11:19 Pulse Ox 96 01/01/25 11:19 FiO2 60 12/26/24 07:32 Intake & Output 12/31/24 01/01/25 01/01/25 18:59 06:59 18:59 Output Total 800 1100 800 Balance -800 -1100 -800 Weight 67.5 kg Output: Urine 800 1100 800 Other: Voiding Method External Catheter External Catheter External Catheter - Exam GENERAL EXAM: Alert, weak, frail 79-year-old male, on 3 L nasal cannula, in no apparent distress. HEAD: Normocephalic. EYES: Normal reaction of pupils, equal size. NOSE: Clear with pink turbinates. THROAT: No erythema or exudates. NECK: No masses, no JVD. CHEST: No chest wall deformity. LUNGS: Equal air entry with faint bibasilar crackles. CVS: S1 and S2 normal with no audible murmur, regular rhythm. ABDOMEN: No hepatosplenomegaly, normal bowel sounds, no guarding or rigidity. SPINE: No scoliosis or deformity SKIN: No rashes CENTRAL NERVOUS SYSTEM: Left-sided weakness, tone is normal in all 4 extremities. EXTREMITIES: There is no peripheral edema. No clubbing, no cyanosis. Peripheral pulses are intact. - Labs CBC & Chem 7: 01/01/25 07:05 01/01/25 07:05 Labs: Abnormal Lab Results - Last 24 Hours (Table) 12/31/24 12/31/24 01/01/25 Range/Units 16:35 19:54 06:17 WBC (3.8-10.6) k/uL RBC (4.30-5.90) m/uL Hgb (13.0-17.5) gm/dL Hct (39.0-53.0) % MCHC (31.0-37.0) g/dL RDW (11.5-15.5) % Neutrophils # (1.3-7.7) k/uL Sodium (137-145) mmol/L Potassium (3.5-5.1) mmol/L Chloride (98-107) mmol/L BUN (9-20) mg/dL Glucose (74-99) mg/dL POC Glucose (mg/dL) 358 H 263 H 202 H (70-110) mg/dL 01/01/25 01/01/25 01/01/25 Range/Units 07:05 07:05 11:34 WBC 14.6 H (3.8-10.6) k/uL RBC 4.25 L (4.30-5.90) m/uL Hgb 11.7 L (13.0-17.5) gm/dL Hct 38.6 L (39.0-53.0) % MCHC 30.2 L (31.0-37.0) g/dL RDW 16.2 H (11.5-15.5) % Neutrophils # 12.6 H (1.3-7.7) k/uL Sodium 148 H (137-145) mmol/L Potassium 3.4 L (3.5-5.1) mmol/L Chloride 112 H (98-107) mmol/L BUN 29 H (9-20) mg/dL Glucose 194 H (74-99) mg/dL POC Glucose (mg/dL) 221 H (70-110) mg/dL Assessment and Plan Assessment: Acute hypoxic respiratory failure secondary to bilateral pleural effusions, suspect acute systolic congestive heart failure. Right-sided thoracentesis performed December 26, 2024 with 600 mL of cloudy thick yellow fluid returned. Fluid is exudate. Cultures revealed no growth and cytology for malignancy. A second right sided thoracentesis performed today December 31, 2024 with 750 mL of fluid returned. Not sent for analysis. Possible underlying bacterial pneumonia. Procalcitonin 20.3. Continued on Unasyn Moderate aortic stenosis Mild mitral regurgitation History of coronary artery disease and previous stent placement History of sick sinus syndrome Chronic atrial fibrillation Plan: The patient was seen and evaluated Labs and medications reviewed Ultrasound of the chest reviewed No plans for thoracentesis or pigtail catheter Resumed the Xarelto Continue Unasyn Continue bronchodilators Currently on 3 L nasal cannula Titrate down the FiO2 as tolerated We will continue to follow I have personally seen and examined the patient, performed the documentation and the assessment and plan as written. Number of minutes spent on the visit: 10 Dictation was produced using [employer] dictation software. Please excuse any grammatical, word or spelling errors.
[2025-01-01 16:24] LABS: Glucose,Whole Blood 341 mg/dL (70-110)
[2025-01-01] MEDS: RIVAROXABAN 15 MG TAB PO SCH (16:28)
[2025-01-01 19:43] LABS: Glucose,Whole Blood 254 mg/dL (70-110)
[2025-01-02 02:33] LABS: Glucose,Whole Blood 228 mg/dL (70-110)
--- NOTE | 2025-01-02 05:45 | P.PN ---
Subjective Progress Note Date: 01/01/25 This is a 79-year-old male who presented to the emergency department as a transfer from [facility] with significant shortness of breath on BiPAP with concerns of CHF exacerbation as well as possible pneumonia. Patient has been started on antibiotics in the form of cefepime and vancomycin. Will obtain procalcitonin. Pulmonary proof clerk has been consulted as patient will likely be going to ICU dependent on BiPAP currently. Patient's FiO2 is 50% with a PEEP of 5. Chest x-ray showing bilateral pleural effusions and there is discussion of the possible need for thoracentesis. On admission here, white count is elevated at 14.2, hemoglobin is stable at 10.9, platelets are 369, ABG shows a pH of 7.41, pCO2 is 29, pO2 66, bicarb is 18, sodium 141 with a potassium of 3.7, BUN 68 and creatinine up at 1.64, glucose 138, lactic acid 3.9, magnesium 1.5, troponin 0.096, BNP is 4230. Patient again being admitted to the ICU with pulmonary proof clerk as well as cardiology on consult. 2D echo is ordered and pending at this time. 12/27/2024 Patient is seen in follow-up today with multiple consultations following including pulmonary, infectious disease, cardiology. Patient continues on BiPAP and transitioning to high flow oxygen at 10 L. Patient resides at [facility] and will be returning there on discharge. Apparently patient does not wear oxygen at the ECF. Weaning as tolerated and patient is also status post thoracentesis on the right with pulmonary today at bedside. Will await cultures and patient also maintained on antibiotics in the form of cefepime and vancomycin with infectious disease following. 12/28/2024 Patient is seen in follow-up today maintained on high flow although is transitioning down from 6 L to 5 L and tolerating. Patient reports he feels slightly improved although feels significantly weak and continues with some shortness of breath. Patient reports to eating a little more and tolerating diet with no reported nausea or vomiting. Pulmonary following and CT chest is ordered for evaluation of possible reaccumulation or loculation of the pleural effusion. Patient is afebrile and maintained on IV antibiotics and will continue. Cardiology and infectious disease following as well. 12/29/2024 Patient is seen in follow-up today and is weaning FiO2 as tolerated doing relatively well currently on 2 L via nasal cannula. Patient continues to have shortness of breath with multiple consultations following including pulmonary and CT chest was done likely complicated pleural effusion although did not show much of a loculation. Patient continues with bilateral effusions worse on the right and previous thoracentesis was exudative although cultures are negative thus far, cytology is negative. Plans for possible thoracentesis again on 025. Will await report. 12/30/2024 Patient is seen in follow-up today with pulmonary following. Plans for possible thoracentesis on the right again although per nursing staff, patient refused. Unsure why he refused as patient had 1 recently this admission and did relatively well. Patient admits extreme weakness recommend sitting up in the chair more frequently. Patient is reporting continued shortness of breath, fatigue, and lower back pain. Discussed with family at length regarding treatme nt plan and refusal of care and discussed CODE STATUS and daughter along with reported he was no code although apparently per Ch[employer] Prive paperwork patient wishes to be full code. Patient most likely with underlying dementia does not appear capable of making his own decisions. Pulmonary to reattempt thoracentesis in the a.m. Will continue on IV Lasix twice daily. Replace potassium and magnesium today. Per nursing staff patient was also refusing to take medications. 12/31/2024 Patient is seen in follow-up today continues to have pleural effusions and is status post repeat right side thoracentesis with approximately 750 cc of serosanguineous fluid removed at bedside. Patient is continued on 2 to 3 L via nasal cannula and tolerating with oxygen saturations above 90%. Patient is ext remely weak and debilitated and clinically declining other than improving on his oxygen demand. Patient is not eating very much and has not gotten up and out of the bed. Family at the bedside with questions and concerns that were answered to the best of our ability. CODE STATUS was addressed and family will discuss further. Continue IV Lasix twice daily and replace electrolytes per protocol. Will follow-up on repeat labs. 01/01/2025 Patient is seen in follow-up today with multiple consultations following including pulmonary and now nephrology. Patient being transition to D5 and water as sodium is noted to be 148. Kidney functions otherwise stable. White count is trending down and patient is maintained on antibiotics. Chest ultrasound of the left is scheduled for evaluation of possible need for thoracentesis. Nephrology has canceled Lasix and will follow-up on repeat labs. Speech reevaluating and given his lethargy today she recommends n.p.o. and will reevaluate in the a.m. Review of systems: Constitutional: reports of fatigue, no fever, or chills Cardiovascular: No reports of chest pain or palpitations Respiratory: reports of shortness of breath and weak cough GI: reports of occasional nausea, no vomiting, or diarrhea, reports not feeling hungry and not much of an appetite : No reports of dysuria or retention Neurovascular: reports of generalized weakness All medications have been reviewed The rest of the 14-point review of systems is negative. PHYSICAL EXAMINATION: GENERAL: The patient is alert and oriented x 2, lethargic and falls asleep easily, extremely raspy and soft-spoken although is answering questions appropriately and following commands. Currently on 2 to 3 L via nasal cannula, well-developed, elderly appearing, ill-appearing, thin built HEENT: Pupils are round and equally reacting to light. EOMI. No scleral icterus. No conjunctival pallor. Normocephalic, atraumatic. No pharyngeal erythema. No thyromegaly. CARDIOVASCULAR: S1 and S2 muffled PULMONARY: Diminished breath sounds bilaterally worse on the right with some scattered expiratory wheezing as well as crackles noted at the bases. ABDOMEN: Soft, nontender, nondistended, normoactive bowel sounds. No palpable organomegaly. MUSCULOSKELETAL: No joint swelling or deformity. EXTREMITIES: No cyanosis, clubbing, or pedal edema. NEUROLOGICAL: Gross neurological examination did not reveal any focal deficits. Diffusely weak SKIN: No rashes. Pale Assessment: Shortness of breath, multifactorial secondary to complex bilateral pleural effusions, greater on the right as well as possible pneumonia, unlikely CHF Leukocytosis with tachycardia and elevated white count, sepsis, present on admission secondary to pneumonia Elevated troponin, 0.096, likely type II secondary to infection Lactic acidosis secondary to sepsis Elevated kidney functions, acute renal failure, improving Hypernatremia, sodium 148 and being transition to D5 and water per nephrology, discontinue IV Lasix Acute systolic heart failure with an EF of 40 to 45% Hypomagnesemia, replaced and improving History of atrial fibrillation, currently on Xarelto which is being resumed Bilateral pleural effusions, status post thoracentesis on the right x 2 with 750 mL removed of serosanguineous fluid today on 12/31/2024. Complex parapneumonic effusion per pulmonary History of coronary artery disease with previous stenting Diabetes mellitus, type II, insulin-dependent History of sick sinus syndrome, status post permanent pacemaker previously Hyperlipidemia Hypertension Former tobacco use GI prophylaxis DVT prophylaxis Full code Plan: Patient was sent here from [facility] for further evaluation on BiPAP, with severe shortness of breath, currently improving and FiO2 is being weaned currently on 2 L via nasal cannula Encouraged incentive spirometer use at least 10 times every hour while awake, p atient needs reinforcement and also assistance as patient is significantly weak. Cardiology and pulmonary following as patient was BiPAP dependent with concerns of sepsis, present on admission. Patient is continued on cefepime as well as vancomycin, infectious disease following and cultures thus far are negative. Patient is status post thoracentesis and specimen was sent and negative for malignancy. Right side thoracentesis with approximately 600 mL removed of exudative thick yellow fluid concerning for empyema and infection, less likely CHF exacerbation per cardiology. Patient is status post repeat thoracentesis on the right today 12/31/2024 with serosanguineous fluid approximately 750 cc taken. Not sent for analysis. Previous thoracentesis earlier this week was negative. Pulmonary ordered chest ultrasound on the left for evaluation and discussing possible left-sided thoracentesis Xarelto remains on hold for now. Patient may need a Pleurx catheter. Patient is a diabetic and will continue Accu-Cheks before meals and at bedtime as well as 2 AM and sliding scale. Speech attempted to reevaluate and patient is extremely lethargic and falls asleep easily, recommending n.p.o. and will reevaluate in the morning 01/02/2025. 2D echo shows an EF of 40 to 45% with moderate aortic stenosis and mild aortic regurgitation noted along with moderate pulmonary hypertension Appropriate home medications have been reviewed and resumed Pacemaker interrogated with cardiology following CODE STATUS was addressed and discussed with family including daughter and and they report he was no code although per Pauline Rob paperwork, CODE STATUS reports he is full code. Patient does not appear to be of sound mind to be making these decisions and most likely underlying dementia. Per daughter Pauline Rob reports he is capable of making decisions himself. Family will discuss further regarding CODE STATUS Follow-up on repeat labs and replace electrolytes per protocol. Case management following and plan will be to return to [facility] on discharge where he resides. The impression and plan of care has been dictated by Nikki Joseph, Nurse Practitioner as directed. Dr. Petros MD I have performed a history and examination and MDM of this patient, discussed the same with the dictator, and agree with the dictator's assessment and plan as written ,documented as a scribe. Based on total visit time, I have performed more than 50% of the visit. Objective - Vital Signs Vital signs: Vital Signs Temp 98.1 F 01/01/25 08:20 Pulse 110 H 01/01/25 08:20 Resp 16 01/01/25 08:20 BP 131/75 01/01/25 08:20 Pulse Ox 98 01/01/25 08:20 FiO2 60 12/26/24 07:32 Intake & Output 12/31/24 01/01/25 01/01/25 18:59 06:59 18:59 Output Total 800 1100 800 Balance -800 -1100 -800 Weight 67.5 kg Output: Urine 800 1100 800 Other: Voiding Method External Catheter External Catheter - Labs CBC & Chem 7: 01/01/25 07:05 01/01/25 07:05 Labs: Abnormal Lab Results - Last 24 Hours (Table) 12/31/24 12/31/24 12/31/24 Range/Units 11:35 16:35 19:54 WBC (3.8-10.6) k/uL RBC (4.30-5.90) m/uL Hgb (13.0-17.5) gm/dL Hct (39.0-53.0) % MCHC (31.0-37.0) g/dL RDW (11.5-15.5) % Neutrophils # (1.3-7.7) k/uL Sodium (137-145) mmol/L Potassium (3.5-5.1) mmol/L Chloride (98-107) mmol/L BUN (9-20) mg/dL Glucose (74-99) mg/dL POC Glucose (mg/dL) 168 H 358 H 263 H (70-110) mg/dL 01/01/25 01/01/25 01/01/25 Range/Units 06:17 07:05 07:05 WBC 14.6 H (3.8-10.6) k/uL RBC 4.25 L (4.30-5.90) m/uL Hgb 11.7 L (13.0-17.5) gm/dL Hct 38.6 L (39.0-53.0) % MCHC 30.2 L (31.0-37.0) g/dL RDW 16.2 H (11.5-15.5) % Neutrophils # 12.6 H (1.3-7.7) k/uL Sodium 148 H (137-145) mmol/L Potassium 3.4 L (3.5-5.1) mmol/L Chloride 112 H (98-107) mmol/L BUN 29 H (9-20) mg/dL Glucose 194 H (74-99) mg/dL POC Glucose (mg/dL) 202 H (70-110) mg/dL Microbiology - Last 24 Hours (Table) 12/26/24 11:40 Gram Stain - Final Pleural Fluid Body Fluid Culture - Final
[2025-01-02 05:50] LABS: Glucose,Whole Blood 238 mg/dL (70-110)
[2025-01-02 09:13] LABS: Anisocytosis Slight; Basophils % (A) 0 %; Eosinophils # (A) 0.1 k/uL (0-0.7); Eosinophils % (A) 1 %; HGB 11.2 gm/dL (13.0-17.5); Hypochromasia Moderate; Lymphocytes # (A) 1.1 k/uL (1.0-4.8); Lymphocytes % (A) 9 %; MCH 27.3 pg (25.0-35.0); MCHC 30.2 g/dL (31.0-37.0); MCV 90.3 fL (80.0-100.0); Mean Platelet Volume 8.2; Monocytes # (A) 0.6 k/uL (0-1.0); Monocytes % (A) 5 %; Neutrophils % (A) 85 %; Platelet Count 394 k/uL (150-450); RDW 16.3 % (11.5-15.5); WBC 12.8 k/uL (3.8-10.6)
[2025-01-02 09:39] LABS: ALT 25 U/L (4-49); AST 35 U/L (17-59); African American GFR (CKD) >90 (>60 ml/min/1.73 sqM); Albumin 2.6 g/dL (3.5-5.0); Alkaline Phosphatase 108 U/L (38-126); Anion Gap 8 mmol/L; Blood Urea Nitrogen 23 mg/dL (9-20); Calcium 8.3 mg/dL (8.4-10.2); Carbon Dioxide 29 mmol/L (22-30); Chloride 110 mmol/L (98-107); Glucose 224 mg/dL (74-99); Non-African American GFR(CKD) 89 (>60 ml/min/1.73 sqM); Potassium 3.3 mmol/L (3.5-5.1); Sodium 147 mmol/L (137-145); Total Bilirubin 0.6 mg/dL (0.2-1.3); Total Protein 5.2 g/dL (6.3-8.2)
--- NOTE | 2025-01-02 10:34 | P.PN ---
Subjective Patient is seen for follow-up for hypernatremia. Status post D5W overnight Patient has been made n.p.o. due to risk of aspiration. He has not been eating much at all. Status post recent diuresis for volume overload. Objective - Vital Signs Vital signs: Vital Signs Temp 97.9 F 01/02/25 08:00 Pulse 100 01/02/25 09:04 Resp 14 01/02/25 08:00 BP 123/72 01/02/25 08:00 Pulse Ox 94 L 01/02/25 08:00 FiO2 60 12/26/24 07:32 Intake & Output 01/01/25 01/02/25 01/02/25 18:59 06:59 18:59 Intake Total 180 20 Output Total 1200 Balance -1020 20 Weight 67.5 kg 69.5 kg Intake: IV 20 Invasive Line 3 10 Invasive Line 4 10 Oral 180 Output: Urine 1200 Other: Voiding Method External Catheter External Catheter # Bowel Movements 0 - Exam Patient is sleeping but arousable. Does not communicate much. Examination of the heart S1 and S2 Examination of the lungs bilateral breath sounds are heard Abdomen is soft nontender Examination of lower extremities shows no significant edema - Labs CBC & Chem 7: 01/02/25 07:47 01/02/25 07:47 Labs: Abnormal Lab Results - Last 24 Hours (Table) 01/01/25 01/01/25 01/01/25 Range/Units 11:34 16:22 19:42 WBC (3.8-10.6) k/uL RBC (4.30-5.90) m/uL Hgb (13.0-17.5) gm/dL Hct (39.0-53.0) % MCHC (31.0-37.0) g/dL RDW (11.5-15.5) % Neutrophils # (1.3-7.7) k/uL Sodium (137-145) mmol/L Potassium (3.5-5.1) mmol/L Chloride (98-107) mmol/L BUN (9-20) mg/dL Glucose (74-99) mg/dL POC Glucose (mg/dL) 221 H 341 H 254 H (70-110) mg/dL Calcium (8.4-10.2) mg/dL Total Protein (6.3-8.2) g/dL Albumin (3.5-5.0) g/dL 01/02/25 01/02/25 01/02/25 Range/Units 02:31 05:49 07:47 WBC 12.8 H (3.8-10.6) k/uL RBC 4.10 L (4.30-5.90) m/uL Hgb 11.2 L (13.0-17.5) gm/dL Hct 37.0 L (39.0-53.0) % MCHC 30.2 L (31.0-37.0) g/dL RDW 16.3 H (11.5-15.5) % Neutrophils # 11.0 H (1.3-7.7) k/uL Sodium (137-145) mmol/L Potassium (3.5-5.1) mmol/L Chloride (98-107) mmol/L BUN (9-20) mg/dL Glucose (74-99) mg/dL POC Glucose (mg/dL) 228 H 238 H (70-110) mg/dL Calcium (8.4-10.2) mg/dL Total Protein (6.3-8.2) g/dL Albumin (3.5-5.0) g/dL 01/02/25 Range/Units 07:47 WBC (3.8-10.6) k/uL RBC (4.30-5.90) m/uL Hgb (13.0-17.5) gm/dL Hct (39.0-53.0) % MCHC (31.0-37.0) g/dL RDW (11.5-15.5) % Neutrophils # (1.3-7.7) k/uL Sodium 147 H (137-145) mmol/L Potassium 3.3 L (3.5-5.1) mmol/L Chloride 110 H (98-107) mmol/L BUN 23 H (9-20) mg/dL Glucose 224 H (74-99) mg/dL POC Glucose (mg/dL) (70-110) mg/dL Calcium 8.3 L (8.4-10.2) mg/dL Total Protein 5.2 L (6.3-8.2) g/dL Albumin 2.6 L (3.5-5.0) g/dL Assessment and Plan Assessment: 1. Hypernatremia associated with free water deficit. Patient has recently been diuresed. Volume status has improved. He has poor oral intake. No significant polyuria noted. 2. Volume overload, improved since admission 3. Bilateral pleural effusions, status post right thoracentesis on 12/31/2024 with 750 mL of fluid removed 4. Pneumonia maintained on antibiotics Plan: Replace potassium Continue to hold Lasix Resume D5W at 50 cc an hour Overall prognosis is guarded
[2025-01-02] MEDS: POTASSIUM CHLORIDE 10 MEQ in WATER FOR INJECTION 1 100ML.BAG IVPB SCH (11:20)
[2025-01-02] MEDS: DEXTROSE 5% IN WATER 1,000 ML IV SCH (11:20)
[2025-01-02 11:32] LABS: Glucose,Whole Blood 223 mg/dL (70-110)
--- NOTE | 2025-01-02 13:09 | P.PN ---
Subjective Progress Note Date: 01/01/25 Principal diagnosis: Reason for follow-up is elevated procalcitonin/pneumonia Patient is a 79-year-old male with a past medical history significant for diabetes mellitus hypertension hyperlipidemia atrial fibrillation skin cancer presenting to the hospital for evaluation of increasing shortness of breath patient did have bilateral effusion status post thoracocentesis on the right size did have elevated Pro-Flex concerning for pneumonia prompting this consultation. Patient did have initial thoracocentesis on the right side with removal of 600 cc of fluid, patient did have repeat thoracocentesis on the right side on 12/31/2024 with removal of 750 cc of fluid. On today's evaluation that is 01/01/2025, patient has been afebrile, patient is breathing comfortably and is currently on 2 L nasal cannula oxygen the patient is sleepy though arousable denies any chest pain or cough no abdominal pain or diarrhea. The patient white count count 14.6, creatinine 0.75 Objective - Vital Signs Vital signs: Vital Signs Temp 98.3 F 01/01/25 11:19 Pulse 107 H 01/01/25 11:50 Resp 18 01/01/25 11:19 BP 126/81 01/01/25 11:19 Pulse Ox 96 01/01/25 11:19 FiO2 60 12/26/24 07:32 Intake & Output 12/31/24 01/01/25 01/01/25 18:59 06:59 18:59 Output Total 800 1100 800 Balance -800 -1100 -800 Weight 67.5 kg Output: Urine 800 1100 800 Other: Voiding Method External Catheter External Catheter External Catheter - Exam GENERAL DESCRIPTION: An elderly male lying in bed in no distress RESPIRATORY SYSTEM: Unlabored breathing , decreased breath sounds at bases HEART: S1 S2 regular rate and rhythm , ABDOMEN: Soft , no tenderness EXTREMITIES: No edema feet - Labs CBC & Chem 7: 01/02/25 07:47 01/02/25 07:47 Labs: Abnormal Lab Results - Last 24 Hours (Table) 12/31/24 12/31/24 01/01/25 Range/Units 16:35 19:54 06:17 WBC (3.8-10.6) k/uL RBC (4.30-5.90) m/uL Hgb (13.0-17.5) gm/dL Hct (39.0-53.0) % MCHC (31.0-37.0) g/dL RDW (11.5-15.5) % Neutrophils # (1.3-7.7) k/uL Sodium (137-145) mmol/L Potassium (3.5-5.1) mmol/L Chloride (98-107) mmol/L BUN (9-20) mg/dL Glucose (74-99) mg/dL POC Glucose (mg/dL) 358 H 263 H 202 H (70-110) mg/dL 01/01/25 01/01/25 01/01/25 Range/Units 07:05 07:05 11:34 WBC 14.6 H (3.8-10.6) k/uL RBC 4.25 L (4.30-5.90) m/uL Hgb 11.7 L (13.0-17.5) gm/dL Hct 38.6 L (39.0-53.0) % MCHC 30.2 L (31.0-37.0) g/dL RDW 16.2 H (11.5-15.5) % Neutrophils # 12.6 H (1.3-7.7) k/uL Sodium 148 H (137-145) mmol/L Potassium 3.4 L (3.5-5.1) mmol/L Chloride 112 H (98-107) mmol/L BUN 29 H (9-20) mg/dL Glucose 194 H (74-99) mg/dL POC Glucose (mg/dL) 221 H (70-110) mg/dL Microbiology - Last 24 Hours (Table) 12/26/24 11:40 Gram Stain - Final Pleural Fluid Body Fluid Culture - Final Assessment and Plan (1) Pleural effusion Current Visit: Yes Status: Acute Code(s): J90 - PLEURAL EFFUSION, NOT ELSEWHERE CLASSIFIED SNOMED Code(s): 60873908 (2) Pneumonia Current Visit: Yes Status: Acute Code(s): J18.9 - PNEUMONIA, UNSPECIFIED ORGANISM SNOMED Code(s): 884255121 Plan: 1patient presented to hospital with increasing shortness of breath cough and this patient did have evidence of bilateral effusion patient also have elevated procalcitonin concerning for possible pneumonia with a parapneumonic effusion. 2patient is status post thoracocentesis and the fluid has been sent for culture which are negative so far 3white count is started to trend down after adjustment of antibiotic to Unasyn to continue antibiotic and monitor clinical course closely Dictation was produced using [employer] dictation software. please excuse any grammatical, word or spelling errors. Time with Patient: Less than 30
--- NOTE | 2025-01-02 13:10 | P.PN ---
Subjective Progress Note Date: 01/02/25 Principal diagnosis: Reason for follow-up is elevated procalcitonin/pneumonia Patient is a 79-year-old male with a past medical history significant for diabetes mellitus hypertension hyperlipidemia atrial fibrillation skin cancer presenting to the hospital for evaluation of increasing shortness of breath patient did have bilateral effusion status post thoracocentesis on the right size did have elevated Pro-Flex concerning for pneumonia prompting this consultation. Patient did have initial thoracocentesis on the right side with removal of 600 cc of fluid, patient did have repeat thoracocentesis on the right side on 12/31/2024 with removal of 750 cc of fluid. On today's evaluation that is 01/02/2025, Patient is afebrile this morning patient currently on 2 L nasal cannula oxygen is breathing comfortably he is sleepy today did not answer any question no vomiting diarrhea change reported by the nursing staff. Patient white count is down to 12.8, creatinine 0.70 Objective - Vital Signs Vital signs: Vital Signs Temp 98.9 F 01/02/25 11:15 Pulse 106 H 01/02/25 11:15 Resp 16 01/02/25 11:15 BP 146/73 01/02/25 11:15 Pulse Ox 94 L 01/02/25 11:15 FiO2 60 12/26/24 07:32 Intake & Output 01/01/25 01/02/25 01/02/25 18:59 06:59 18:59 Intake Total 180 20 Output Total 1200 Balance -1020 20 Weight 67.5 kg 69.5 kg Intake: IV 20 Invasive Line 3 10 Invasive Line 4 10 Oral 180 Output: Urine 1200 Other: Voiding Method External Catheter External Catheter External Catheter # Bowel Movements 0 - Exam GENERAL DESCRIPTION: An elderly male lying in bed in no distress RESPIRATORY SYSTEM: Unlabored breathing , decreased breath sounds at bases HEART: S1 S2 regular rate and rhythm , ABDOMEN: Soft , no tenderness EXTREMITIES: No edema feet - Labs CBC & Chem 7: 01/02/25 07:47 01/02/25 07:47 Labs: Abnormal Lab Results - Last 24 Hours (Table) 01/01/25 01/01/25 01/02/25 Range/Units 16:22 19:42 02:31 WBC (3.8-10.6) k/uL RBC (4.30-5.90) m/uL Hgb (13.0-17.5) gm/dL Hct (39.0-53.0) % MCHC (31.0-37.0) g/dL RDW (11.5-15.5) % Neutrophils # (1.3-7.7) k/uL Sodium (137-145) mmol/L Potassium (3.5-5.1) mmol/L Chloride (98-107) mmol/L BUN (9-20) mg/dL Glucose (74-99) mg/dL POC Glucose (mg/dL) 341 H 254 H 228 H (70-110) mg/dL Calcium (8.4-10.2) mg/dL Total Protein (6.3-8.2) g/dL Albumin (3.5-5.0) g/dL 01/02/25 01/02/25 01/02/25 Range/Units 05:49 07:47 07:47 WBC 12.8 H (3.8-10.6) k/uL RBC 4.10 L (4.30-5.90) m/uL Hgb 11.2 L (13.0-17.5) gm/dL Hct 37.0 L (39.0-53.0) % MCHC 30.2 L (31.0-37.0) g/dL RDW 16.3 H (11.5-15.5) % Neutrophils # 11.0 H (1.3-7.7) k/uL Sodium 147 H (137-145) mmol/L Potassium 3.3 L (3.5-5.1) mmol/L Chloride 110 H (98-107) mmol/L BUN 23 H (9-20) mg/dL Glucose 224 H (74-99) mg/dL POC Glucose (mg/dL) 238 H (70-110) mg/dL Calcium 8.3 L (8.4-10.2) mg/dL Total Protein 5.2 L (6.3-8.2) g/dL Albumin 2.6 L (3.5-5.0) g/dL 01/02/25 Range/Units 11:31 WBC (3.8-10.6) k/uL RBC (4.30-5.90) m/uL Hgb (13.0-17.5) gm/dL Hct (39.0-53.0) % MCHC (31.0-37.0) g/dL RDW (11.5-15.5) % Neutrophils # (1.3-7.7) k/uL Sodium (137-145) mmol/L Potassium (3.5-5.1) mmol/L Chloride (98-107) mmol/L BUN (9-20) mg/dL Glucose (74-99) mg/dL POC Glucose (mg/dL) 223 H (70-110) mg/dL Calcium (8.4-10.2) mg/dL Total Protein (6.3-8.2) g/dL Albumin (3.5-5.0) g/dL Assessment and Plan (1) Pleural effusion Current Visit: Yes Status: Acute Code(s): J90 - PLEURAL EFFUSION, NOT ELS EWHERE CLASSIFIED SNOMED Code(s): 94033996 (2) Pneumonia Current Visit: Yes Status: Acute Code(s): J18.9 - PNEUMONIA, UNSPECIFIED ORGANISM SNOMED Code(s): 981661937 Plan: 1patient presented to hospital with increasing shortness of breath cough and this patient did have evidence of bilateral effusion patient also have elevated procalcitonin concerning for possible pneumonia with a parapneumonic effusion. 2patient is status post thoracocentesis and the fluid has been sent for culture which are negative so far 3the patient white count is down to 12,000 we will continue patient on Unasyn while inpatient and monitor clinical course closely Dictation was produced using [employer] dictation software. please excuse any grammatical, word or spelling errors. Time with Patient: Less than 30
--- NOTE | 2025-01-02 13:11 | P.PN ---
Subjective Progress Note Date: 01/02/25 Principal diagnosis: Respiratory failure. This is an 79year-old white male with history of multiple medical problems including diabetes, coronary artery disease, history of congestive heart failure, dyslipidemia, patient was transferred today from [facility] for possible pneumonia and sepsis. Patient presented to the ER with shortness of breath, abnormal chest x-ray showing bilateral pleural effusions patient was noted to have low blood pressure upon his initial evaluation, patient was given fluid boluses at the [facility] facility, and he was transferred here more fluids were given. I saw the patient in the ER, patient is on BiPAP, 10/05, patient is already feeling comfortable, he is hemodynamically stable, and I felt that the patient could be admitted to the cardiac floor instead of sending the patient to the ICU. Patient is already receiving broad-spectrum antibiotics, and again his chest x-ray is more suggestive of pulmonary edema underlying pneumonia is not entirely ruled out. History rm, the patient is a very poor historian, not much could be obtained from the patient himself as he seems to be confused. Looking at the chart patient already received 2 to 3 L of fluid boluses prior to my evaluation. CBC showed leukocytosis with WBC count is 14.2 hemoglobin 10.9 patient had an ABG on 50% FiO2 and BiPAP. pO2 of 66 pCO2 29 pH of 7.41. Ultrasound of the chest showed bilateral pleural effusions may have to consider diagnostic and therapeutic thoracentesis however the patient has been on Xarelto which is presently on hold. Electrolytes showed bicarb of 17 BUN of 68 creatinine 1.64 however no baseline creatinine available on this patient. In 2020, there is a report on the transesophageal echocardiogram showing mostly moderate sclerotic and decreased leaflet excursion of the aortic valve, there was also evidence of mild to moderate mitral regurgitation and his ejection fraction at the time was noted to be 50%. In the cardiology note, there is history of coronary artery disease and previous stenting of RCA history of sick sinus syndrome and permanent. Permanent pacemaker placement, he has paroxysmal atrial fibrillation hypertension and moderate severe aortic stenosis. The patient is seen today December 26, 2024 in follow-up on the selective care unit. He is currently resting in bed. Awake and alert in no acute distress. Flow nasal cannula. He has been afebrile. Hemodynamically stable. Ultrasound of the chest revealed a significant 13.1 cm pocket on the right. He did undergo thoracentesis today by Dr. Skinner with 600 mL of yellow cloudy thick fluid removed. Chest x-ray showed significant improvement. No evidence of pneumothorax. Fluid analysis, cultures and cytology pending. White count 15.3. Hemoglobin 10.9. Platelets 374. Sodium 142. Potassium 3.3. Bicarb 22. BUN 76. Creatinine 1.44. Glucose 173. He remains on cefepime and vancomycin. Remains on IV diuretics. Currently in a negative balance. The patient is seen today December 27, 2024 in follow-up on the selective care unit. He is currently resting in bed. Awake and alert in no acute distress. He is maintaining O2 saturations in the 90s on 8 L high flow nasal cannula. He is afebrile. Hemodynamically stable. He did undergo a right sided thoracentesis yesterday. Fluid is exudate with a total protein greater than 3.6, LDH 1356. Cultures and cytology pending. White count 15.0. Hemoglobin 10.5. Platelets 356. Sodium 144. Potassium 3.2. Bicarb 27. BUN 66. Creatinine 0.94. Glucose 162. C-reactive protein 18.9. He is continued on vancomycin and cefepime. Continued on bronchodilators as needed. Remains on IV diuretics. Anticoagulated with Xarelto. Currently in a -1.4 L balance Seen today on 12/29/2024, patient is basically about the same. On 2 L nasal cannula, blood pressure is a bit elevated 149/84, heart rate is 108, patient has a temp of 98.9, CT of the chest failed to show loculated pleural effusion, however looking at the labs from the pleural effusion, it seems to be quite complicated pleural effusion, almost an empyema although the cultures have been negative. Will plan another thoracentesis on this patient, may actually require pigtail catheter placement for adequate drainage but will proceed with another thoracentesis tomorrow on the right side, if fluid remains quite exudative with elevated LDH and low glucose, I will also recommend a pH on the fluid, may really consider the patient for either a chest tube placement or pigtail catheter. I prefer a pigtail catheter placement but considering the patient is on anticoagulation therapy at this point, interventional radiology will likely decline the procedure. Patient was seen today on 12/30/2024, patient is about the same, today I recommended thoracentesis to be done on the left side, and I am also considering repeat thoracentesis on the right side, and he continues to have fairly good sized pleural effusions based on his CT of the chest and based on his ultrasound of the chest. I asked the patient to proceed with thoracentesis today, however he declined. I am concerned that this is a complicated parapneumonic pleural effusion, may have to consider even a pigtail catheter placement, but patient is refusing even a thoracentesis at this point. His WBC count today 13.7 hemoglobin 11 electrolytes are normal except for potassium of 3.2 renal profile is normal patient remains on antibiotics as per infectious disease on the case. The patient is seen today December 31, 2024 in follow-up on the selective care unit. He is currently awake and alert. Drifts off easily. Family is at the bedside. He is maintaining O2 saturations in the 90s on 3 L/min per nasal cannula. He is afebrile. Hemodynamically stable. He did undergo another right sided thoracentesis today with 750 mL of fluid removed. Continues to show bilateral pleural effusions. Improved on the right. No evidence of pneumothorax. Pleural fluid cultures revealed no growth. Cytology was negative for malignancy. White count 16.0. Hemoglobin 11.5. Platelets 404. Sodium 147. Potassium 3.3. Bicarb 23. BUN 1327. Creatinine 0.64. Glucose 158. He remains on vancomycin and cefepime. Continued on IV diuretics. Currently in a -1.8 L balance. The patient is seen today January 01, 2025 in follow-up on the selective care unit. He is currently resting in bed. Awake and alert in no acute distress. Maintaining O2 saturations in the 90s on 2 L/min per nasal cannula. He has normal saline at 10 mL/h. He remains on DuoNeb inhalations, antibiotics in the form of Unasyn. Repeat ultrasound of the chest revealed very minimal bilateral pleural effusions with an 1.8 cm pocket on the right and a 1.6 cm pocket on the left. No plans for thoracentesis. Xarelto will be resumed. White count 14.6. Hemoglobin 11.7. Platelets 412. Sodium 148. Potassium 3.4. Bicarb 24. BUN 29. Creatinine 0.75. Glucose 194. Progress note dated January 02, 2025. 79-year-old male seen again in room 371. The patient is currently on 2 L nasal cannula. He is getting saline at 10 cc an hour. He is resting comfortably in bed. He is in no distress. Current laboratory data includes a white count 12.8, hemoglobin 11.2, hematocrit 37, and a platelet count of 394,000. Sodium 147, potassium 3.3, chlorides 110, CO2 29, BUN 23, creatinine 0.70. Glucose is 223. Calcium 8.3. Protein 5.2. Albumin 2.6. Objective - Vital Signs Vital signs: Vital Signs Temp 98.9 F 01/02/25 11:15 Pulse 106 H 01/02/25 11:15 Resp 16 01/02/25 11:15 BP 146/73 01/02/25 11:15 Pulse Ox 94 L 01/02/25 11:15 FiO2 60 12/26/24 07:32 Intake & Output 01/01/25 01/02/25 01/02/25 18:59 06:59 18:59 Intake Total 180 20 Output Total 1200 Balance -1020 20 Weight 67.5 kg 69.5 kg Intake: IV 20 Invasive Line 3 10 Invasive Line 4 10 Oral 180 Output: Urine 1200 Other: Voiding Method External Catheter External Catheter External Catheter # Bowel Movements 0 - Exam No acute distress, oriented 3. Currently on 2 L of oxygen by nasal cannula. HEENT examination is grossly unremarkable. Mucous membranes are moist. No oral lesions. Neck supple. Full range of motion. No adenopathy thyromegaly or neck vein distention. Cardiovascular examination reveals regular rhythm rate. S1-S2 normal. No S3 or S4. No discernible murmur noted. Lungs reveal bibasilar crackles. No wheezes. No rhonchi. Breath sounds equal bilaterally. Abdomen soft bowel sounds are heard. No masses or tenderness. Extremities are intact. No cyanosis clubbing or edema. Skin is without rash or lesion. Neurologic examination reveals left-sided weakness. - Labs CBC & Chem 7: 01/02/25 07:47 01/02/25 07:47 Labs: Abnormal Lab Results - Last 24 Hours (Table) 01/01/25 01/01/25 01/02/25 Range/Units 16:22 19:42 02:31 WBC (3.8-10.6) k/uL RBC (4.30-5.90) m/uL Hgb (13.0-17.5) gm/dL Hct (39.0-53.0) % MCHC (31.0-37.0) g/dL RDW (11.5-15.5) % Neutrophils # (1.3-7.7) k/uL Sodium (137-145) mmol/L Potassium (3.5-5.1) mmol/L Chloride (98-107) mmol/L BUN (9-20) mg/dL Glucose (74-99) mg/dL POC Glucose (mg/dL) 341 H 254 H 228 H (70-110) mg/dL Calcium (8.4-10.2) mg/dL Total Protein (6.3-8.2) g/dL Albumin (3.5-5.0) g/dL 01/02/25 01/02/25 01/02/25 Range/Units 05:49 07:47 07:47 WBC 12.8 H (3.8-10.6) k/uL RBC 4.10 L (4.30-5.90) m/uL Hgb 11.2 L (13.0-17.5) gm/dL Hct 37.0 L (39.0-53.0) % MCHC 30.2 L (31.0-37.0) g/dL RDW 16.3 H (11.5-15.5) % Neutrophils # 11.0 H (1.3-7.7) k/uL Sodium 147 H (137-145) mmol/L Potassium 3.3 L (3.5-5.1) mmol/L Chloride 110 H (98-107) mmol/L BUN 23 H (9-20) mg/dL Glucose 224 H (74-99) mg/dL POC Glucose (mg/dL) 238 H (70-110) mg/dL Calcium 8.3 L (8.4-10.2) mg/dL Total Protein 5.2 L (6.3-8.2) g/dL Albumin 2.6 L (3.5-5.0) g/dL 01/02/25 Range/Units 11:31 WBC (3.8-10.6) k/uL RBC (4.30-5.90) m/uL Hgb (13.0-17.5) gm/dL Hct (39.0-53.0) % MCHC (31.0-37.0) g/dL RDW (11.5-15.5) % Neutrophils # (1.3-7.7) k/uL Sodium (137-145) mmol/L Potassium (3.5-5.1) mmol/L Chloride (98-107) mmol/L BUN (9-20) mg/dL Glucose (74-99) mg/dL POC Glucose (mg/dL) 223 H (70-110) mg/dL Calcium (8.4-10.2) mg/dL Total Protein (6.3-8.2) g/dL Albumin (3.5-5.0) g/dL Assessment and Plan Assessment: Acute hypoxic respiratory failure secondary to bilateral pleural effusions, suspect acute systolic congestive heart failure. Right-sided thoracentesis performed December 26, 2024 with 600 mL of cloudy thick yellow fluid returned. Fluid is exudate. Cultures revealed no growth and cytology for malignancy. A second right sided thoracentesis performed today December 31, 2024 with 750 mL of fluid returned. Possible underlying bacterial pneumonia. Procalcitonin 20.3. Moderate aortic stenosis. Mild mitral regurgitation. History of coronary artery disease and previous stent placement. History of sick sinus syndrome. Chronic atrial fibrillation. Plan: Plan dated January 02, 2025. The patient was seen today in room 371. Labs, x-rays, medications are reviewed. The chest ultrasound was also reviewed. No plans for thoracentesis at this time. The Xarelto was resumed. He continues on Unasyn. He is currently on 2 L nasal cannula. He is getting saline at 10 cc an hour. Labs, x-rays, and all medications are reviewed. The patient is overall prognosis is poor. He has a DO NOT RESUSCITATE patient. We will continue to follow. Dictation was produced using [employer] software. Please excuse any grammatical, word or spelling errors. Time with Patient: Less than 30
[2025-01-02] MEDS: POTASSIUM CHLORIDE ER 20 MEQ TAB.ER PO STA (16:01)
[2025-01-02 16:22] LABS: Glucose,Whole Blood 233 mg/dL (70-110)
[2025-01-02 22:54] LABS: Glucose,Whole Blood 241 mg/dL (70-110)
--- NOTE | 2025-01-03 05:13 | P.PN ---
Subjective Progress Note Date: 01/02/25 This is a 79-year-old male who presented to the emergency department as a transfer from [facility] with significant shortness of breath on BiPAP with concerns of CHF exacerbation as well as possible pneumonia. Patient has been started on antibiotics in the form of cefepime and vancomycin. Will obtain procalcitonin. Pulmonary healthcare interpreter has been consulted as patient will likely be going to ICU dependent on BiPAP currently. Patient's FiO2 is 50% with a PEEP of 5. Chest x-ray showing bilateral pleural effusions and there is discussion of the possible need for thoracentesis. On admission here, white count is elevated at 14.2, hemoglobin is stable at 10.9, platelets are 369, ABG shows a pH of 7.41, pCO2 is 29, pO2 66, bicarb is 18, sodium 141 with a potassium of 3.7, BUN 68 and creatinine up at 1.64, glucose 138, lactic acid 3.9, magnesium 1.5, troponin 0.096, BNP is 4230. Patient again being admitted to the ICU with pulmonary healthcare interpreter as well as cardiology on consult. 2D echo is ordered and pending at this time. 12/27/2024 Patient is seen in follow-up today with multiple consultations following including pulmonary, infectious disease, cardiology. Patient continues on BiPAP and transitioning to high flow oxygen at 10 L. Patient resides at [facility] and will be returning there on discharge. Apparently patient does not wear oxygen at the ECF. Weaning as tolerated and patient is also status post thoracentesis on the right with pulmonary today at bedside. Will await cultures and patient also maintained on antibiotics in the form of cefepime and vancomycin with infectious disease following. 12/28/2024 Patient is seen in follow-up today maintained on high flow although is transitioning down from 6 L to 5 L and tolerating. Patient reports he feels slightly improved although feels significantly weak and continues with some shortness of breath. Patient reports to eating a little more and tolerating diet with no reported nausea or vomiting. Pulmonary following and CT chest is ordered for evaluation of possible reaccumulation or loculation of the pleural effusion. Patient is afebrile and maintained on IV antibiotics and will continue. Cardiology and infectious disease following as well. 12/29/2024 Patient is seen in follow-up today and is weaning FiO2 as tolerated doing relatively well currently on 2 L via nasal cannula. Patient continues to have shortness of breath with multiple consultations following including pulmonary and CT chest was done likely complicated pleural effusion although did not show much of a loculation. Patient continues with bilateral effusions worse on the right and previous thoracentesis was exudative although cultures are negative thus far, cytology is negative. Plans for possible thoracentesis again on 025. Will await report. 12/30/2024 Patient is seen in follow-up today with pulmonary following. Plans for possible thoracentesis on the right again although per nursing staff, patient refused. Unsure why he refused as patient had 1 recently this admission and did relatively well. Patient admits extreme weakness recommend sitting up in the chair more frequently. Patient is reporting continued shortness of breath, fatigue, and lower back pain. Discussed with family at length regarding treatme nt plan and refusal of care and discussed CODE STATUS and daughter along with reported he was no code although apparently per [employer] paperwork patient wishes to be full code. Patient most likely with underlying dementia does not appear capable of making his own decisions. Pulmonary to reattempt thoracentesis in the a.m. Will continue on IV Lasix twice daily. Replace potassium and magnesium today. Per nursing staff patient was also refusing to take medications. 12/31/2024 Patient is seen in follow-up today continues to have pleural effusions and is status post repeat right side thoracentesis with approximately 750 cc of serosanguineous fluid removed at bedside. Patient is continued on 2 to 3 L via nasal cannula and tolerating with oxygen saturations above 90%. Patient is ext remely weak and debilitated and clinically declining other than improving on his oxygen demand. Patient is not eating very much and has not gotten up and out of the bed. Family at the bedside with questions and concerns that were answered to the best of our ability. CODE STATUS was addressed and family will discuss further. Continue IV Lasix twice daily and replace electrolytes per protocol. Will follow-up on repeat labs. 01/01/2025 Patient is seen in follow-up today with multiple consultations following including pulmonary and now nephrology. Patient being transition to D5 and water as sodium is noted to be 148. Kidney functions otherwise stable. White count is trending down and patient is maintained on antibiotics. Chest ultrasound of the left is scheduled for evaluation of possible need for thoracentesis. Nephrology has canceled Lasix and will follow-up on repeat labs. Speech reevaluating and given his lethargy today she recommends n.p.o. and will reevaluate in the a.m. 01/02/2025 Patient is seen in follow-up this morning continues to be more lethargic not eating barely anything and was made n.p.o. yesterday by speech due to his lethargy. Patient is barely responsive although will awaken fatigues easily. Discussed with family regarding CODE STATUS and patient is no code and will discuss further in regards to possible hospice which would be appropriate in this person. Review of systems: Constitutional: reports of fatigue, no fever, or chills Cardiovascular: No reports of chest pain or palpitations Respiratory: reports of shortness of breath and weak cough GI: reports of occasional nausea, no vomiting, or diarrhea, no appetite and not eating : No reports of dysuria or retention Neurovascular: reports of generalized weakness All medications have been reviewed The rest of the 14-point review of systems is negative. PHYSICAL EXAMINATION: GENERAL: The patient is alert and oriented x 2, lethargic and falls asleep easily, extremely raspy and soft-spoken although is answering questions appropriately and following commands. Currently on 2 to 3 L via nasal cannula, well-developed, elderly appearing, ill-appearing, thin built HEENT: Pupils are round and equally reacting to light. EOMI. No scleral icterus. No conjunctival pallor. Normocephalic, atraumatic. No pharyngeal erythema. No thyromegaly. CARDIOVASCULAR: S1 and S2 muffled PULMONARY: Diminished breath sounds bilaterally worse on the right with some scattered expiratory wheezing as well as crackles noted at the bases. ABDOMEN: Soft, nontender, nondistended, normoactive bowel sounds. No palpable organomegaly. MUSCULOSKELETAL: No joint swelling or deformity. EXTREMITIES: No cyanosis, clubbing, or pedal edema. NEUROLOGICAL: Gross neurological examination did not reveal any focal deficits. Diffusely weak SKIN: No rashes. Pale Assessment: Shortness of breath, multifactorial secondary to complex bilateral pleural effusions, greater on the right as well as possible pneumonia, unlikely CHF Leukocytosis with tachycardia and elevated white count, sepsis, present on admission secondary to pneumonia Elevated troponin, 0.096, likely type II secondary to infection Lactic acidosis secondary to sepsis Elevated kidney functions, acute renal failure, improving Hypernatremia, sodium 148 and being transition to D5 and water per nephrology, discontinue IV Lasix Acute systolic heart failure with an EF of 40 to 45% Hypomagnesemia, replaced and improving History of atrial fibrillation, currently on Xarelto which is being resumed Bilateral pleural effusions, status post thoracentesis on the right x 2 with 750 mL removed of serosanguineous fluid today on 12/31/2024. Complex parapneumonic effusion per pulmonary History of coronary artery disease with previous stenting Diabetes mellitus, type II, insulin-dependent History of sick sinus syndrome, status post permanent pacemaker previously Hyperlipidemia Hypertension Former tobacco use GI prophylaxis DVT prophylaxis No code Plan: Patient was sent here from [facility] for further evaluation on BiPAP, with severe shortness of breath, currently improving and FiO2 is being weaned currently on 2 L via nasal cannula Encouraged incentive spirometer use at least 10 times every hour while awake, patient needs reinforcement and also assistance as patient is significantly weak. Cardiology and pulmonary following as patient was BiPAP dependent with concerns of sepsis, present on admission. Patient is continued on cefepime as well as vancomycin, infectious disease following and cultures thus far are negative. Patient is status post thoracentesis and specimen was sent and negative for malignancy. Right side thoracentesis with approximately 600 mL removed of exudative thick yellow fluid concerning for empyema and infection, less likely CHF exacerbation per cardiology. Patient is status post repeat thoracentesis on the right today 12/31/2024 with serosanguineous fluid approximately 750 cc taken. Not sent for analysis. Previous thoracentesis earlier this week was negative. Pulmonary ordered chest ultrasound on the left for evaluation and discussing possible left-sided thoracentesis Xarelto remains on hold for now. Patient may need a Pleurx catheter. Patient is a diabetic and will continue Accu-Cheks before meals and at bedtime as well as 2 AM and sliding scale. Speech attempted to reevaluate and patient is extremely lethargic and falls asleep easily, recommending n.p.o. and will reevaluate in the morning 01/02/2025. 2D echo shows an EF of 40 to 45% with moderate aortic stenosis and mild aortic regurgitation noted along with moderate pulmonary hypertension Appropriate home medications have been reviewed and resumed Pacemaker interrogated with cardiology following CODE STATUS was addressed and discussed with family including daughter and and they would like the patient to be no code. Hospice was discussed and will likely return to [facility] on hospice. Will discuss with daughter at regarding referral and possible discharge planning in the next 24 to 48 hours Case management following and plan will be to return to [facility] on discharge where he resides. The impression and plan of care has been dictated by Nikki Joseph, Nurse Practitioner as directed. Dr. Petros MD I have performed a history and examination and MDM of this patient, discussed the same with the dictator, and agree with the dictator's assessment and plan as written ,documented as a scribe. Based on total visit time, I have performed more than 50% of the visit. Objective - Vital Signs Vital signs: Vital Signs Temp 97.9 F 01/02/25 08:00 Pulse 100 01/02/25 09:04 Resp 14 01/02/25 08:00 BP 123/72 01/02/25 08:00 Pulse Ox 94 L 01/02/25 08:00 FiO2 60 12/26/24 07:32 Intake & Output 01/01/25 01/02/25 01/02/25 18:59 06:59 18:59 Intake Total 180 20 Output Total 1200 Balance -1020 20 Weight 67.5 kg 69.5 kg Intake: IV 20 Invasive Line 3 10 Invasive Line 4 10 Oral 180 Output: Urine 1200 Other: Voiding Method External Catheter External Catheter # Bowel Movements 0 - Labs CBC & Chem 7: 01/02/25 07:47 01/02/25 07:47 Labs: Abnormal Lab Results - Last 24 Hours (Table) 01/01/25 01/01/25 01/01/25 Range/Units 11:34 16:22 19:42 WBC (3.8-10.6) k/uL RBC (4.30-5.90) m/uL Hgb (13.0-17.5) gm/dL Hct (39.0-53.0) % MCHC (31.0-37.0) g/dL RDW (11.5-15.5) % Neutrophils # (1.3-7.7) k/uL Sodium (137-145) mmol/L Potassium (3.5-5.1) mmol/L Chloride (98-107) mmol/L BUN (9-20) mg/dL Glucose (74-99) mg/dL POC Glucose (mg/dL) 221 H 341 H 254 H (70-110) mg/dL Calcium (8.4-10.2) mg/dL Total Protein (6.3-8.2) g/dL Albumin (3.5-5.0) g/dL 01/02/25 01/02/25 01/02/25 Range/Units 02:31 05:49 07:47 WBC 12.8 H (3.8-10.6) k/uL RBC 4.10 L (4.30-5.90) m/uL Hgb 11.2 L (13.0-17.5) gm/dL Hct 37.0 L (39.0-53.0) % MCHC 30.2 L (31.0-37.0) g/dL RDW 16.3 H (11.5-15.5) % Neutrophils # 11.0 H (1.3-7.7) k/uL Sodium (137-145) mmol/L Potassium (3.5-5.1) mmol/L Chloride (98-107) mmol/L BUN (9-20) mg/dL Glucose (74-99) mg/dL POC Glucose (mg/dL) 228 H 238 H (70-110) mg/dL Calcium (8.4-10.2) mg/dL Total Protein (6.3-8.2) g/dL Albumin (3.5-5.0) g/dL 01/02/25 Range/Units 07:47 WBC (3.8-10.6) k/uL RBC (4.30-5.90) m/uL Hgb (13.0-17.5) gm/dL Hct (39.0-53.0) % MCHC (31.0-37.0) g/dL RDW (11.5-15.5) % Neutrophils # (1.3-7.7) k/uL Sodium 147 H (137-145) mmol/L Potassium 3.3 L (3.5-5.1) mmol/L Chloride 110 H (98-107) mmol/L BUN 23 H (9-20) mg/dL Glucose 224 H (74-99) mg/dL POC Glucose (mg/dL) (70-110) mg/dL Calcium 8.3 L (8.4-10.2) mg/dL Total Protein 5.2 L (6.3-8.2) g/dL Albumin 2.6 L (3.5-5.0) g/dL
[2025-01-03 06:18] LABS: Glucose,Whole Blood 210 mg/dL (70-110)
[2025-01-03 06:55] LABS: Potassium 3.7 mmol/L (3.5-5.1)
[2025-01-03 10:41] LABS: African American GFR (CKD) >90 (>60 ml/min/1.73 sqM); Anion Gap 10 mmol/L; Blood Urea Nitrogen 19 mg/dL (9-20); Calcium 8.6 mg/dL (8.4-10.2); Carbon Dioxide 24 mmol/L (22-30); Chloride 111 mmol/L (98-107); Glucose 178 mg/dL (74-99); Non-African American GFR(CKD) >90 (>60 ml/min/1.73 sqM); Sodium 145 mmol/L (137-145)
[2025-01-03 11:20] LABS: Glucose,Whole Blood 192 mg/dL (70-110)
--- NOTE | 2025-01-03 11:59 | P.PN ---
Subjective Progress Note Date: 01/03/25 This is an 79year-old white male with history of multiple medical problems including diabetes, coronary artery disease, history of congestive heart failure, dyslipidemia, patient was transferred today from [facility] for possible pneumonia and sepsis. Patient presented to the ER with shortness of breath, abnormal chest x-ray showing bilateral pleural effusions patient was noted to have low blood pressure upon his initial evaluation, patient was given fluid boluses at the [facility] facility, and he was transferred here more fluids were given. I saw the patient in the ER, patient is on BiPAP, 10/05, patient is already feeling comfortable, he is hemodynamically stable, and I felt that the patient could be admitted to the cardiac floor instead of sending the patient to the ICU. Patient is already receiving broad-spectrum antibiotics, and again his chest x-ray is more suggestive of pulmonary edema underlying pneumonia is not entirely ruled out. History rm, the patient is a very poor historian, not much could be obtained from the patient himself as he seems to be confused. Looking at the chart patient already received 2 to 3 L of fluid boluses prior to my evaluation. CBC showed leukocytosis with WBC count is 14.2 hemoglobin 10.9 patient had an ABG on 50% FiO2 and BiPAP. pO2 of 66 pCO2 29 pH of 7.41. Ultrasound of the chest showed bilateral pleural effusions may have to consider diagnostic and therapeutic thoracentesis however the patient has been on Xarelto which is presently on hold. Electrolytes showed bicarb of 17 BUN of 68 creatinine 1.64 however no baseline creatinine available on this patient. In 2020, there is a report on the transesophageal echocardiogram showing mostly moderate sclerotic and decreased leaflet excursion of the aortic valve, there was also evidence of mild to moderate mitral regurgitation and his ejection fraction at the time was noted to be 50%. In the cardiology note, there is history of coronary artery disease and previous stenting of RCA history of sick sinus syndrome and permanent. Permanent pacemaker placement, he has paroxysmal atrial fibrillation hypertension and moderate severe aortic stenosis. The patient is seen today December 26, 2024 in follow-up on the selective care unit. He is currently resting in bed. Awake and alert in no acute distress. Flow nasal cannula. He has been afebrile. Hemodynamically stable. Ultrasound of the chest revealed a significant 13.1 cm pocket on the right. He did undergo thoracentesis today by Dr. Skinner with 600 mL of yellow cloudy thick fluid removed. Chest x-ray showed significant improvement. No evidence of pneumothorax. Fluid analysis, cultures and cytology pending. White count 15.3. Hemoglobin 10.9. Platelets 374. Sodium 142. Potassium 3.3. Bicarb 22. BUN 76. Creatinine 1.44. Glucose 173. He remains on cefepime and vancomycin. Remains on IV diuretics. Currently in a negative balance. The patient is seen today December 27, 2024 in follow-up on the selective care unit. He is currently resting in bed. Awake and alert in no acute distress. H e is maintaining O2 saturations in the 90s on 8 L high flow nasal cannula. He is afebrile. Hemodynamically stable. He did undergo a right sided thoracentesis yesterday. Fluid is exudate with a total protein greater than 3.6, LDH 1356. Cultures and cytology pending. White count 15.0. Hemoglobin 10.5. Platelets 356. Sodium 144. Potassium 3.2. Bicarb 27. BUN 66. Creatinine 0.94. Glucose 162. C-reactive protein 18.9. He is continued on vancomycin and cefepime. Continued on bronchodilators as needed. Remains on IV diuretics. Anticoagulated with Xarelto. Currently in a -1.4 L balance Seen today on 12/29/2024, patient is basically about the same. On 2 L nasal cannula, blood pressure is a bit elevated 149/84, heart rate is 108, patient has a temp of 98.9, CT of the chest failed to show loculated pleural effusion, however looking at the labs from the pleural effusion, it seems to be quite complicated pleural effusion, almost an empyema although the cultures have been negative. Will plan another thoracentesis on this patient, may actually require pigtail catheter placement for adequate drainage but will proceed with another thoracentesis tomorrow on the right side, if fluid remains quite exudative with elevated LDH and low glucose, I will also recommend a pH on the fluid, may really consider the patient for either a chest tube placement or pigtail catheter. I prefer a pigtail catheter placement but considering the patient is on anticoagulation therapy at this point, interventional radiology will likely decline the procedure. Patient was seen today on 12/30/2024, patient is about the same, today I recommended thoracentesis to be done on the left side, and I am also considering repeat thoracentesis on the right side, and he continues to have fairly good sized pleural effusions based on his CT of the chest and based on his ultrasound of the chest. I asked the patient to proceed with thoracentesis today, however he declined. I am concerned that this is a complicated parapneumonic pleural effusion, may have to consider even a pigtail catheter placement, but patient is refusing even a thoracentesis at this point. His WBC count today 13.7 hemoglobin 11 electrolytes are normal except for potassium of 3.2 renal profile is normal patient remains on antibiotics as per infectious disease on the case. The patient is seen today December 31, 2024 in follow-up on the selective care unit. He is currently awake and alert. Drifts off easily. Family is at the bedside. He is maintaining O2 saturations in the 90s on 3 L/min per nasal cannula. He is afebrile. Hemodynamically stable. He did undergo another right sided thoracentesis today with 750 mL of fluid removed. Continues to show bilateral pleural effusions. Improved on the right. No evidence of pneumothorax. Pleural fluid cultures revealed no growth. Cytology was negative for malignancy. White count 16.0. Hemoglobin 11.5. Platelets 404. Sodium 147. Potassium 3.3. Bicarb 23. BUN 1327. Creatinine 0.64. Glucose 158. He remains on vancomycin and cefepime. Continued on IV diuretics. Currently in a -1.8 L balance. The patient is seen today January 01, 2025 in follow-up on the selective care unit. He is currently resting in bed. Awake and alert in no acute distress. Maintaining O2 saturations in the 90s on 2 L/min per nasal cannula. He has normal saline at 10 mL/h. He remains on DuoNeb inhalations, antibiotics in the form of Unasyn. Repeat ultrasound of the chest revealed very minimal bilateral pleural effusions with an 1.8 cm pocket on the right and a 1.6 cm pocket on the left. No plans for thoracentesis. Xarelto will be resumed. White count 14.6. Hemoglobin 11.7. Platelets 412. Sodium 148. Potassium 3.4. Bicarb 24. BUN 29. Creatinine 0.75. Glucose 194. The patient is seen today January 03, 2025 in follow-up on the regular medical floor. He is currently resting in bed. He is arousable. He is disoriented to place and time. He is maintaining good O2 saturations in the 90s on 3 L nasal cannula r. He has been afebrile. Hemodynamically stable. Potassium 3.7. Bicarb 24. BUN 19. Creatinine 0.63. Glucose 178. Calcium 8.6. He remains on DuoNeb inhalations. Anticoagulated with Xarelto. Remains on Unasyn. Pleural fluid cultures revealed no growth. Cytology was negative for malignancy. Most recent ultrasound of the chest revealed very minimal pleural effusions with 1.8 cm on the right and 1.6 cm on the left. No further plans for thoracentesis on this admission. Objective - Vital Signs Vital signs: Vital Signs Temp 98.8 F 01/03/25 07:07 Pulse 94 01/03/25 09:01 Resp 22 01/03/25 07:07 BP 150/82 01/03/25 07:07 Pulse Ox 94 L 01/03/25 08:50 FiO2 60 12/26/24 07:32 Intake & Output 01/02/25 01/03/25 01/03/25 18:59 06:59 18:59 Output Total 650 100 Balance -650 -100 Weight 70 kg Output: Urine 650 100 Other: Voiding Method External Catheter External Catheter - Exam GENERAL EXAM: Alert, confused frail 79-year-old male, on 3 L nasal cannula, in no apparent distress. HEAD: Normocephalic. EYES: Normal reaction of pupils, equal size. NOSE: Clear with pink turbinates. THROAT: No erythema or exudates. NECK: No masses, no JVD. CHEST: No chest wall deformity. LUNGS: Equal air entry with faint bibasilar crackles. CVS: S1 and S2 normal with no audible murmur, regular rhythm. ABDOMEN: No hepatosplenomegaly, normal bowel sounds, no guarding or rigidity. SPINE: No scoliosis or deformity SKIN: No rashes CENTRAL NERVOUS SYSTEM: Left-sided weakness, tone is normal in all 4 e xtremities. EXTREMITIES: There is no peripheral edema. No clubbing, no cyanosis. Peripheral pulses are intact. - Labs CBC & Chem 7: 01/02/25 07:47 01/03/25 05:48 Labs: Abnormal Lab Results - Last 24 Hours (Table) 01/02/25 01/02/25 01/03/25 Range/Units 16:20 22:51 05:48 Chloride 111 H (98-107) mmol/L Creatinine 0.63 L (0.66-1.25) mg/dL Glucose 178 H (74-99) mg/dL POC Glucose (mg/dL) 233 H 241 H (70-110) mg/dL 01/03/25 01/03/25 Range/Units 06:17 11:18 Chloride (98-107) mmol/L Creatinine (0.66-1.25) mg/dL Glucose (74-99) mg/dL POC Glucose (mg/dL) 210 H 192 H (70-110) mg/dL Assessment and Plan Assessment: Acute hypoxic respiratory failure secondary to bilateral pleural effusions, suspect acute systolic congestive heart failure. Right-sided thoracentesis performed December 26, 2024 with 600 mL of cloudy thick yellow fluid returned. Fluid is exudate. Cultures revealed no growth and cytology for malignancy. A second right sided thoracentesis performed December 31, 2024 with 750 mL of fluid returned. Not sent for analysis. Will pleural effusions less than 2 cm bilaterally Possible underlying bacterial pneumonia. Procalcitonin 20.3. Continued on Unasyn Moderate aortic stenosis Mild mitral regurgitation History of coronary artery disease and previous stent placement History of sick sinus syndrome Chronic atrial fibrillation maintained on Xarelto Plan: The patient was seen and evaluated Labs and medications reviewed Continue bronchodilators Titrate down the FiO2 as tolerated Antibiotics per ID service The patient remains confused and unable to make his own decisions His overall prognosis remains quite poor Family is considering hospice The plan is for [place] at discharge This patient was seen independently by the pulmonary nurse practitioner addressing pulmonary issues I have personally seen and examined the patient, performed the documentation and the assessment and plan as written. Number of minutes spent on the visit: 24 Dictation was produced using eROI dictation software. Please excuse any grammatical, word or spelling errors.
--- NOTE | 2025-01-03 12:27 | P.PN ---
Subjective Progress Note Date: 01/03/25 Principal diagnosis: Reason for follow-up is elevated procalcitonin/pneumonia Patient is a 79-year-old male with a past medical history significant for diabetes mellitus hypertension hyperlipidemia atrial fibrillation skin cancer presenting to the hospital for evaluation of increasing shortness of breath patient did have bilateral effusion status post thoracocentesis on the right size did have elevated Pro-Flex concerning for pneumonia prompting this consultation. Patient did have initial thoracocentesis on the right side with removal of 600 cc of fluid, patient did have repeat thoracocentesis on the right side on 12/31/2024 with removal of 750 cc of fluid. On today's evaluation that is 01/03/2025,the patient continues to be afebrile the patient is currently on 3 L, oxygen mention any chest pain shortness with or cough no vomiting or diarrhea has been reported. Patient did have a creatinine 0.63 CBC is pending from today culture have been negative so far Objective - Vital Signs Vital signs: Vital Signs Temp 98.8 F 01/03/25 07:07 Pulse 94 01/03/25 09:01 Resp 22 01/03/25 07:07 BP 150/82 01/03/25 07:07 Pulse Ox 94 L 01/03/25 08:50 FiO2 60 12/26/24 07:32 Intake & Output 01/02/25 01/03/25 01/03/25 18:59 06:59 18:59 Output Total 650 100 Balance -650 -100 Weight 70 kg Output: Urine 650 100 Other: Voiding Method External Catheter External Catheter - Exam GENERAL DESCRIPTION: An elderly male lying in bed in no distress RESPIRATORY SYSTEM: Unlabored breathing , decreased breath sounds at bases HEART: S1 S2 regular rate and rhythm , ABDOMEN: Soft , no tenderness EXTREMITIES: No edema feet - Labs CBC & Chem 7: 01/02/25 07:47 01/03/25 05:48 Labs: Abnormal Lab Results - Last 24 Hours (Table) 01/02/25 01/02/25 01/03/25 Range/Units 16:20 22:51 05:48 Chloride 111 H (98-107) mmol/L Creatinine 0.63 L (0.66-1.25) mg/dL Glucose 178 H (74-99) mg/dL POC Glucose (mg/dL) 233 H 241 H (70-110) mg/dL 01/03/25 01/03/25 Range/Units 06:17 11:18 Chloride (98-107) mmol/L Creatinine (0.66-1.25) mg/dL Glucose (74-99) mg/dL POC Glucose (mg/dL) 210 H 192 H (70-110) mg/dL Assessment and Plan (1) Pleural effusion Current Visit: Yes Status: Acute Code(s): J90 - PLEURAL EFFUSION, NOT ELSEWHERE CLASSIFIED SNOMED Code(s): 73579887 (2) Pneumonia Current Visit: Yes Status: Acute Code(s): J18.9 - PNEUMONIA, UNSPECIFIED ORGANISM SNOMED Code(s): 058824428 Plan: 1patient presented to hospital with increasing shortness of breath cough and this patient did have evidence of bilateral effusion patient also have elevated procalcitonin concerning for possible pneumonia with a parapneumonic effusion. 2patient is status post thoracocentesis and the fluid has been sent for culture which are negative so far 3the patient white count is down to 12,000 as of yesterday, CBC is pending today we will keep the patient on Unasyn while inpatient and monitor clinical course closely Dictation was produced using [employer] dictation software. please excuse any grammatical, word or spelling errors. Time with Patient: Less than 30
--- NOTE | 2025-01-03 12:51 | P.PN ---
Subjective Patient is seen for follow-up for hypernatremia. Maintained on D5W Patient has been made n.p.o. due to risk of aspiration. He has not been eating much at all. Status post recent diuresis for volume overload. Objective - Vital Signs Vital signs: Vital Signs Temp 98.8 F 01/03/25 07:07 Pulse 96 01/03/25 12:43 Resp 22 01/03/25 07:07 BP 150/82 01/03/25 07:07 Pulse Ox 94 L 01/03/25 08:50 FiO2 60 12/26/24 07:32 Intake & Output 01/02/25 01/03/25 01/03/25 18:59 06:59 18:59 Output Total 650 100 Balance -650 -100 Weight 70 kg Output: Urine 650 100 Other: Voiding Method External Catheter External Catheter - Exam Patient is sleeping but arousable. Does not communicate much. Examination of the heart S1 and S2 Examination of the lungs bilateral breath sounds are heard Abdomen is soft nontender Examination of lower extremities shows no significant edema - Labs CBC & Chem 7: 01/02/25 07:47 01/03/25 05:48 Labs: Abnormal Lab Results - Last 24 Hours (Table) 01/02/25 01/02/25 01/03/25 Range/Units 16:20 22:51 05:48 Chloride 111 H (98-107) mmol/L Creatinine 0.63 L (0.66-1.25) mg/dL Glucose 178 H (74-99) mg/dL POC Glucose (mg/dL) 233 H 241 H (70-110) mg/dL 01/03/25 01/03/25 Range/Units 06:17 11:18 Chloride (98-107) mmol/L Creatinine (0.66-1.25) mg/dL Glucose (74-99) mg/dL POC Glucose (mg/dL) 210 H 192 H (70-110) mg/dL Assessment and Plan Assessment: 1. Hypernatremia associated with free water deficit. Patient has recently been diuresed. Volume status has improved. He has poor oral intake. No significant polyuria noted. 2. Volume overload, improved since admission 3. Bilateral pleural effusions, status post right thoracentesis on 12/31/2024 with 750 mL of fluid removed 4. Pneumonia maintained on antibiotics Plan: Replace potassium Continue to hold Lasix Continue D5W at 50 cc an hour Overall prognosis is guarded
[2025-01-03 15:30] VITALS: BMI 22.8
[2025-01-03] MEDS: POTASSIUM CHLORIDE 10 MEQ in WATER FOR INJECTION 1 100ML.BAG IVPB STA (15:54)
[2025-01-03 16:57] LABS: Glucose,Whole Blood 215 mg/dL (70-110)
[2025-01-03 20:41] LABS: Glucose,Whole Blood 222 mg/dL (70-110)
--- NOTE | 2025-01-04 05:36 | P.PN ---
Subjective Progress Note Date: 01/03/25 This is a 79-year-old male who presented to the emergency department as a transfer from [facility] with significant shortness of breath on BiPAP with concerns of CHF exacerbation as well as possible pneumonia. Patient has been started on antibiotics in the form of cefepime and vancomycin. Will obtain procalcitonin. Pulmonary liner machine operator has been consulted as patient will likely be going to ICU dependent on BiPAP currently. Patient's FiO2 is 50% with a PEEP of 5. Chest x-ray showing bilateral pleural effusions and there is discussion of the possible need for thoracentesis. On admission here, white count is elevated at 14.2, hemoglobin is stable at 10.9, platelets are 369, ABG shows a pH of 7.41, pCO2 is 29, pO2 66, bicarb is 18, sodium 141 with a potassium of 3.7, BUN 68 and creatinine up at 1.64, glucose 138, lactic acid 3.9, magnesium 1.5, troponin 0.096, BNP is 4230. Patient again being admitted to the ICU with pulmonary liner machine operator as well as cardiology on consult. 2D echo is ordered and pending at this time. 12/27/2024 Patient is seen in follow-up today with multiple consultations following including pulmonary, infectious disease, cardiology. Patient continues on BiPAP and transitioning to high flow oxygen at 10 L. Patient resides at [facility] and will be returning there on discharge. Apparently patient does not wear oxygen at the ECF. Weaning as tolerated and patient is also status post thoracentesis on the right with pulmonary today at bedside. Will await cultures and patient also maintained on antibiotics in the form of cefepime and vancomycin with infectious disease following. 12/28/2024 Patient is seen in follow-up today maintained on high flow although is transitioning down from 6 L to 5 L and tolerating. Patient reports he feels slightly improved although feels significantly weak and continues with some shortness of breath. Patient reports to eating a little more and tolerating diet with no reported nausea or vomiting. Pulmonary following and CT chest is ordered for evaluation of possible reaccumulation or loculation of the pleural effusion. Patient is afebrile and maintained on IV antibiotics and will continue. Cardiology and infectious disease following as well. 12/29/2024 Patient is seen in follow-up today and is weaning FiO2 as tolerated doing relatively well currently on 2 L via nasal cannula. Patient continues to have shortness of breath with multiple consultations following including pulmonary and CT chest was done likely complicated pleural effusion although did not show much of a loculation. Patient continues with bilateral effusions worse on the right and previous thoracentesis was exudative although cultures are negative thus far, cytology is negative. Plans for possible thoracentesis again on 025. Will await report. 12/30/2024 Patient is seen in follow-up today with pulmonary following. Plans for possible thoracentesis on the right again although per nursing staff, patient refused. Unsure why he refused as patient had 1 recently this admission and did relatively well. Patient admits extreme weakness recommend sitting up in the chair more frequently. Patient is reporting continued shortness of breath, fatigue, and lower back pain. Discussed with family at length regarding treatme nt plan and refusal of care and discussed CODE STATUS and daughter along with reported he was no code although apparently per [employer] paperwork patient wishes to be full code. Patient most likely with underlying dementia does not appear capable of making his own decisions. Pulmonary to reattempt thoracentesis in the a.m. Will continue on IV Lasix twice daily. Replace potassium and magnesium today. Per nursing staff patient was also refusing to take medications. 12/31/2024 Patient is seen in follow-up today continues to have pleural effusions and is status post repeat right side thoracentesis with approximately 750 cc of serosanguineous fluid removed at bedside. Patient is continued on 2 to 3 L via nasal cannula and tolerating with oxygen saturations above 90%. Patient is ext remely weak and debilitated and clinically declining other than improving on his oxygen demand. Patient is not eating very much and has not gotten up and out of the bed. Family at the bedside with questions and concerns that were answered to the best of our ability. CODE STATUS was addressed and family will discuss further. Continue IV Lasix twice daily and replace electrolytes per protocol. Will follow-up on repeat labs. 01/01/2025 Patient is seen in follow-up today with multiple consultations following including pulmonary and now nephrology. Patient being transition to D5 and water as sodium is noted to be 148. Kidney functions otherwise stable. White count is trending down and patient is maintained on antibiotics. Chest ultrasound of the left is scheduled for evaluation of possible need for thoracentesis. Nephrology has canceled Lasix and will follow-up on repeat labs. Speech reevaluating and given his lethargy today she recommends n.p.o. and will reevaluate in the a.m. 01/02/2025 Patient is seen in follow-up this morning continues to be more lethargic not eating barely anything and was made n.p.o. yesterday by speech due to his lethargy. Patient is barely responsive although will awaken fatigues easily. Discussed with family regarding CODE STATUS and patient is no code and will discuss further in regards to possible hospice which would be appropriate in this person. 01/03/2025 Patient is seen in follow-up with multiple consultations following. Patient is continued on antibiotics and cultures have been negative. CODE STATUS was addressed and patient is no code and power of manager internet was activated and family is planning on returning to [facility] with hospice services. [facility] consulted and working on E signatures to arrange for discharge planning to [facility]. Patient continues on 3 L of oxygen via nasal cannula and reports shortness of breath although is extremely weak and fatigued and falls asleep during conversation. Patient is not eating as patient is an extremely high risk of aspiration and evaluated by speech recommending n.p.o. until mentation is improved. Patient is requesting water on exam. Review of systems: Constitutional: reports of fatigue, no fever, or chills Cardiovascular: No reports of chest pain or palpitations Respiratory: reports of shortness of breath and weak cough GI: reports of occasional nausea, no vomiting, or diarrhea, no appetite and not eating : No reports of dysuria or retention Neurovascular: reports of generalized weakness All medications have been reviewed The rest of the 14-point review of systems is negative. PHYSICAL EXAMINATION: GENERAL: The patient is alert and oriented x 1 to self, arousable although extremely lethargic and falls asleep easily, extremely raspy and soft-spoken is not really talking. Currently on 3 L via nasal cannula, well-developed, elderly appearing, ill-appearing, thin built HEENT: Pupils are round and equally reacting to light. EOMI. No scleral icterus. No conjunctival pallor. Normocephalic, atraumatic. No pharyngeal erythema. No thyromegaly. CARDIOVASCULAR: S1 and S2 muffled PULMONARY: Diminished breath sounds bilaterally worse on the right with some scattered expiratory wheezing as well as crackles noted at the bases. ABDOMEN: Soft, nontender, nondistended, normoactive bowel sounds. No palpable organomegaly. MUSCULOSKELETAL: No joint swelling or deformity. EXTREMITIES: No cyanosis, clubbing, or pedal edema. NEUROLOGICAL: Gross neurological examination did not reveal any focal deficits. Diffusely weak SKIN: No rashes. Pale Assessment: Shortness of breath, multifactorial secondary to complex bilateral pleural effusions, greater on the right as well as possible pneumonia, unlikely CHF per cardiology Leukocytosis with tachycardia and elevated white count, sepsis, present on admission secondary to pneumonia Elevated troponin, 0.096, likely type II secondary to infection Lactic acidosis secondary to sepsis Elevated kidney functions, acute renal failure, improving Hypernatremia, improved maintained on D5 and water, Lasix was discontinued by nephrology Acute systolic heart failure with an EF of 40 to 45% Hypomagnesemia, improved after replacement History of atrial fibrillation, currently on Xarelto Bilateral pleural effusions, status post thoracentesis on the right x 2 with 750 mL removed of serosanguineous fluid today on 12/31/2024. Complex parapneumonic effusion per pulmonary, cultures remain negative History of coronary artery disease with previous stenting Diabetes mellitus, type II, insulin-dependent History of sick sinus syndrome, status post permanent pacemaker previously Hyperlipidemia Hypertension Former tobacco use GI prophylaxis DVT prophylaxis No code Plan: Patient resides at [facility] and came in in respiratory distress requiring BiPAP and noted to have significant pleural effusions bilaterally worse on the right. Patient is status post 2 thoracentesis during this admission and cultures and pathology was negative. Concerns for CHF with a reduced EF of 40 to 45% systolic dysfunction versus pneumonia Patient currently n.p.o. as patient is high risk for aspiration and extremely lethargic unable to tolerate. Patient is not awake, alert and oriented except only to person. Patient is not able to make decisions and power of manager internet was activated and CODE STATUS was addressed and patient is no code. Discussed philosophy of hospice and was consulted and patient family agreeable to return to [facility] on hospice. [facility] following awaiting consents. Power of manager internet jarad ornelas [place] out of state and is planning on taking a flight here in the next 1 to 2 days. Per hospice, they are currently undergoing a snowstorm and unable to verify if the signatures were signed for hospice consents. Will follow-up and plans for discharge planning in 24 hours to [facility] with hospice services The impression and plan of care has been dictated by Nikki Joseph, Nurse Practitioner as directed. Dr. Petros MD I have performed a history and examination and MDM of this patient, discussed the same with the dictator, and agree with the dictator's assessment and plan as written ,documented as a scribe. Based on total visit time, I have performed more than 50% of the visit. Objective - Vital Signs Vital signs: Vital Signs Temp 98.8 F 01/03/25 07:07 Pulse 94 01/03/25 09:01 Resp 22 01/03/25 07:07 BP 150/82 01/03/25 07:07 Pulse Ox 94 L 01/03/25 08:50 FiO2 60 12/26/24 07:32 Intake & Output 01/02/25 01/03/25 01/03/25 18:59 06:59 18:59 Output Total 650 100 Balance -650 -100 Weight 70 kg Output: Urine 650 100 Other: Voiding Method External Catheter External Catheter - Labs CBC & Chem 7: 01/02/25 07:47 01/03/25 05:48 Labs: Abnormal Lab Results - Last 24 Hours (Table) 01/02/25 01/02/25 01/02/25 Range/Units 11:31 16:20 22:51 POC Glucose (mg/dL) 223 H 233 H 241 H (70-110) mg/dL 01/03/25 Range/Units 06:17 POC Glucose (mg/dL) 210 H (70-110) mg/dL
[2025-01-04 06:14] LABS: Glucose,Whole Blood 215 mg/dL (70-110)
[2025-01-04 07:44] VITALS: BP 134/68; RESP 16; TEMP 99
[2025-01-04 09:06] VITALS: PULSE 96
--- NOTE | 2025-01-04 11:16 | P.DS ---
Providers Date of admission: 12/25/24 13:25 Attending physician: Shin Otto MD Consults: 12/25/24 13:23 Consult Physician Routine Consulting Provider: [facility] Consult Reason/Comments: afib, possible chf, elevated troponin Do you want consulting provider notified?: Yes Consult Physician Stat Consulting Provider: Kaylee Skinner Consult Reason/Comments: icu management Do you want consulting provider notified?: Yes 12/26/24 09:21 Consult Physician Urgent Consulting Provider: Nikkie Guzmán Consult Reason/Comments: pna, procal 20, chf exac Do you want consulting provider notified?: Yes 01/01/25 10:09 Consult Physician Urgent Consulting Provider: Fernanda Diaz Consult Reason/Comments: hypernatremia Do you want consulting provider notified?: Yes Primary care physician: Issac Carr Hospital Course: Final Diagnosis Shortness of breath, multifactorial secondary to complex bilateral pleural effusions, greater on the right as well as possible pneumonia, unlikely CHF per cardiology Leukocytosis with tachycardia and elevated white count, sepsis, present on admission secondary to pneumonia Elevated troponin, 0.096, likely type II secondary to infection Lactic acidosis secondary to sepsis Elevated kidney functions, acute renal failure, improving Hypernatremia, improved maintained on D5 and water, Lasix was discontinued by nephrology Acute systolic heart failure with an EF of 40 to 45% Hypomagnesemia, improved after replacement History of atrial fibrillation, currently on Xarelto Bilateral pleural effusions, status post thoracentesis on the right x 2 with 750 mL removed of serosanguineous fluid today on 12/31/2024. Complex parapneumonic effusion per pulmonary, cultures remain negative History of coronary artery disease with previous stenting Diabetes mellitus, type II, insulin-dependent History of sick sinus syndrome, status post permanent pacemaker previously Hyperlipidemia Hypertension Discharge Disposition Patient will be discharging to [facility] with hospice services in place. Hospital Course This is a pleasant 79-year-old male who resides at [facility] who came in with respiratory distress was initially requiring BiPAP was found to have significant pleural effusions worse on the right. Patient was admitted to the hospital with consult placed to pulmonology cardiology and infectious disease. Patient is undergone a thoracentesis x 2 while admitted. His echocardiogram comes back revealing an EF of 40 to 45%. Patient's CODE STATUS was changed to a no code. He was diuresed with IV Lasix. Nephrology was eventually consulted. Patient has been lethargic not eating was made n.p.o. by speech therapy due to his lethargy. Cultures of all been negative. Patient has been continued on IV Banex his hospital stay. He is required 2 L of oxygen via nasal cannula. Patient was extremely high risk for aspiration. Hospice was consulted and family is agreeable to initiate hospice on discharge patient will return to [facility] today. Bloodwork reveals a white blood cell count of 12.8, hemoglobin 11.2, sodium of 135 potassium 3.7, BUN of 19 creatinine 0.63, calcium level 8.6. Patient has been afebrile he did have a temp of 100.1, 48 hours ago heart rate of 96 blood pressure 134/68 he is 90% oxygen saturation on 3 L nasal cannula. Please see medication reconciliation for a list of current medications. Thank you for allowing us to participate in the care of this patient. The impression and plan of care has been dictated by Tanvi Fall, Nurse Practitioner as directed. Dr. Petros MD I have performed a history and physical examination and medical decision making of this patient, discussed the same with the dictator, and agree with the dictators assessment and plan as written, documented as a scribe. Based on total visit time, I have performed more than 50% of this visit. Plan - Discharge Summary Discharge Rx Participant: Yes New Discharge Prescriptions: New Metoprolol Succinate (ER) [Toprol XL] 25 mg PO DAILY #30 tab Rivaroxaban [Xarelto] 15 mg PO W/SUPPER #0 tab Continue Pioglitazone HCl [Actos] 15 mg PO DAILY Furosemide [Lasix] 20 mg PO DAILY Ranolazine [Ranexa] 500 mg PO BID Ascorbic Acid [Vitamin C] 500 mg PO DAILY bisacodyL [Dulcolax] 10 mg PO DAILY PRN PRN Reason: Constipation Ferrous Sulfate [Iron (65 MG Elemental)] 325 mg PO DAILY Escitalopram [Lexapro] 10 mg PO DAILY Acetaminophen [Tylenol] 650 mg PO Q4H PRN PRN Reason: Pain Muscle Rub External Cream 10-15% 1 applic TOPICAL Q6H PRN PRN Reason: UPPER BACK/NECK PAIN Methenamine Hippurate [Hiprex] 1 gm PO BID metFORMIN HCL [Glucophage] 500 mg PO TID Tamsulosin [Flomax] 0.4 mg PO DAILY Finasteride [Proscar] 5 mg PO DAILY Atorvastatin [Lipitor] 40 mg PO HS Discontinued Rivaroxaban [Xarelto] 15 mg PO HS Losartan [Cozaar] 25 mg PO DAILY Discharge Medication List Furosemide [Lasix] 20 mg PO DAILY 02/27/19 [History] Pioglitazone HCl [Actos] 15 mg PO DAILY 02/27/19 [History] Acetaminophen [Tylenol] 650 mg PO Q4H PRN 12/25/24 [History] Ascorbic Acid [Vitamin C] 500 mg PO DAILY 12/25/24 [History] Atorvastatin [Lipitor] 40 mg PO HS 12/25/24 [History] Escitalopram [Lexapro] 10 mg PO DAILY 12/25/24 [History] Ferrous Sulfate [Iron (65 MG Elemental)] 325 mg PO DAILY 12/25/24 [History] Finasteride [Proscar] 5 mg PO DAILY 12/25/24 [History] Methenamine Hippurate [Hiprex] 1 gm PO BID 12/25/24 [History] Muscle Rub External Cream 10-15% 1 applic TOPICAL Q6H PRN 12/25/24 [History] Ranolazine [Ranexa] 500 mg PO BID 12/25/24 [History] Tamsulosin [Flomax] 0.4 mg PO DAILY 12/25/24 [History] bisacodyL [Dulcolax] 10 mg PO DAILY PRN 12/25/24 [History] metFORMIN HCL [Glucophage] 500 mg PO TID 12/25/24 [History] Metoprolol Succinate (ER) [Toprol XL] 25 mg PO DAILY #30 tab 01/04/25 [Rx] Rivaroxaban [Xarelto] 15 mg PO W/SUPPER #0 tab 01/04/25 [Rx] Follow up Appointment(s)/Referral(s): Chris Montgomery MD [STAFF PHYSICIAN] - 2 Weeks [facility] Alyssa, [NON-STAFF] - As Needed Issac Carr MD [Primary Care Provider] - 1 Week Activity/Diet/Wound Care/Special Instructions: Return to [facility] with Hospice
[2025-01-04 11:47] LABS: Glucose,Whole Blood 213 mg/dL (70-110)
--- NOTE | 2025-01-04 13:08 | P.PN ---
Subjective Patient is seen for follow-up for hypernatremia. Maintained on D5W Plan for discharge with hospice today Objective - Vital Signs Vital signs: Vital Signs Temp 99.0 F 01/04/25 06:57 Pulse 96 01/04/25 12:48 Resp 16 01/04/25 10:30 BP 134/68 01/04/25 06:57 Pulse Ox 90 L 01/04/25 08:55 FiO2 60 12/26/24 07:32 Intake & Output 01/03/25 01/04/25 01/04/25 18:59 06:59 18:59 Output Total 100 Balance -100 Weight 70 kg 82 kg Output: Urine 100 Other: Voiding Method External Catheter External Catheter - Exam Patient is sleeping but arousable. Does not communicate much. Examination of lower extremities shows no significant edema - Labs CBC & Chem 7: 01/02/25 07:47 01/04/25 11:12 Labs: Abnormal Lab Results - Last 24 Hours (Table) 01/03/25 01/03/25 01/04/25 Range/Units 16:55 20:39 06:12 POC Glucose (mg/dL) 215 H 222 H 215 H (70-110) mg/dL 01/04/25 Range/Units 11:46 POC Glucose (mg/dL) 213 H (70-110) mg/dL Assessment and Plan Assessment: 1. Hypernatremia associated with free water deficit. Status post recent diuresis. Currently maintained on D5W. He has poor oral intake. No significant polyuria noted. 2. Volume overload, improved since admission 3. Bilateral pleural effusions, status post right thoracentesis on 12/31/2024 with 750 mL of fluid removed 4. Pneumonia maintained on antibiotics Plan: Continue to hold Lasix Continue D5W at 50 cc an hour until discharge Agree with hospice care
--- NOTE | 2025-01-04 13:58 | P.PN ---
Subjective Progress Note Date: 01/04/25 This is an 79year-old white male with history of multiple medical problems including diabetes, coronary artery disease, history of congestive heart failure, dyslipidemia, patient was transferred today from [facility] for possible pneumonia and sepsis. Patient presented to the ER with shortness of breath, abnormal chest x-ray showing bilateral pleural effusions patient was noted to have low blood pressure upon his initial evaluation, patient was given fluid boluses at the [place] facility, and he was transferred here more fluids were given. I saw the patient in the ER, patient is on BiPAP, 10/05, patient is already feeling comfortable, he is hemodynamically stable, and I felt that the patient could be admitted to the cardiac floor instead of sending the patient to the ICU. Patient is already receiving broad-spectrum antibiotics, and again his chest x-ray is more suggestive of pulmonary edema underlying pneumonia is not entirely ruled out. History rm, the patient is a very poor historian, not much could be obtained from the patient himself as he seems to be confused. Looking at the chart patient already received 2 to 3 L of fluid boluses prior to my evaluation. CBC showed leukocytosis with WBC count is 14.2 hemoglobin 10.9 patient had an ABG on 50% FiO2 and BiPAP. pO2 of 66 pCO2 29 pH of 7.41. Ultrasound of the chest showed bilateral pleural effusions may have to consider diagnostic and therapeutic thoracentesis however the patient has been on Xarelto which is presently on hold. Electrolytes showed bicarb of 17 BUN of 68 creatinine 1.64 however no baseline creatinine available on this patient. In 2020, there is a report on the transesophageal echocardiogram showing mostly moderate sclerotic and decreased leaflet excursion of the aortic valve, there was also evidence of mild to moderate mitral regurgitation and his ejection fraction at the time was noted to be 50%. In the cardiology note, there is history of coronary artery disease and previous stenting of RCA history of sick sinus syndrome and permanent. Permanent pacemaker placement, he has paroxysmal atrial fibrillation hypertension and moderate severe aortic stenosis. The patient is seen today December 26, 2024 in follow-up on the selective care unit. He is currently resting in bed. Awake and alert in no acute distress. Flow nasal cannula. He has been afebrile. Hemodynamically stable. Ultrasound of the chest revealed a significant 13.1 cm pocket on the right. He did undergo thoracentesis today by Dr. Skinner with 600 mL of yellow cloudy thick fluid removed. Chest x-ray showed significant improvement. No evidence of pneumothorax. Fluid analysis, cultures and cytology pending. White count 15.3. Hemoglobin 10.9. Platelets 374. Sodium 142. Potassium 3.3. Bicarb 22. BUN 76. Creatinine 1.44. Glucose 173. He remains on cefepime and vancomycin. Remains on IV diuretics. Currently in a negative balance. The patient is seen today December 27, 2024 in follow-up on the selective care unit. He is currently resting in bed. Awake and alert in no acute distress. H e is maintaining O2 saturations in the 90s on 8 L high flow nasal cannula. He is afebrile. Hemodynamically stable. He did undergo a right sided thoracentesis yesterday. Fluid is exudate with a total protein greater than 3.6, LDH 1356. Cultures and cytology pending. White count 15.0. Hemoglobin 10.5. Platelets 356. Sodium 144. Potassium 3.2. Bicarb 27. BUN 66. Creatinine 0.94. Glucose 162. C-reactive protein 18.9. He is continued on vancomycin and cefepime. Continued on bronchodilators as needed. Remains on IV diuretics. Anticoagulated with Xarelto. Currently in a -1.4 L balance Seen today on 12/29/2024, patient is basically about the same. On 2 L nasal cannula, blood pressure is a bit elevated 149/84, heart rate is 108, patient has a temp of 98.9, CT of the chest failed to show loculated pleural effusion, however looking at the labs from the pleural effusion, it seems to be quite complicated pleural effusion, almost an empyema although the cultures have been negative. Will plan another thoracentesis on this patient, may actually require pigtail catheter placement for adequate drainage but will proceed with another thoracentesis tomorrow on the right side, if fluid remains quite exudative with elevated LDH and low glucose, I will also recommend a pH on the fluid, may really consider the patient for either a chest tube placement or pigtail catheter. I prefer a pigtail catheter placement but considering the patient is on anticoagulation therapy at this point, interventional radiology will likely decline the procedure. Patient was seen today on 12/30/2024, patient is about the same, today I recommended thoracentesis to be done on the left side, and I am also considering repeat thoracentesis on the right side, and he continues to have fairly good sized pleural effusions based on his CT of the chest and based on his ultrasound of the chest. I asked the patient to proceed with thoracentesis today, however he declined. I am concerned that this is a complicated parapneumonic pleural effusion, may have to consider even a pigtail catheter placement, but patient is refusing even a thoracentesis at this point. His WBC count today 13.7 hemoglobin 11 electrolytes are normal except for potassium of 3.2 renal profile is normal patient remains on antibiotics as per infectious disease on the case. The patient is seen today December 31, 2024 in follow-up on the selective care unit. He is currently awake and alert. Drifts off easily. Family is at the bedside. He is maintaining O2 saturations in the 90s on 3 L/min per nasal cannula. He is afebrile. Hemodynamically stable. He did undergo another right sided thoracentesis today with 750 mL of fluid removed. Continues to show bilateral pleural effusions. Improved on the right. No evidence of pneumothorax. Pleural fluid cultures revealed no growth. Cytology was negative for malignancy. White count 16.0. Hemoglobin 11.5. Platelets 404. Sodium 147. Potassium 3.3. Bicarb 23. BUN 1327. Creatinine 0.64. Glucose 158. He remains on vancomycin and cefepime. Continued on IV diuretics. Currently in a -1.8 L balance. The patient is seen today January 01, 2025 in follow-up on the selective care unit. He is currently resting in bed. Awake and alert in no acute distress. Maintaining O2 saturations in the 90s on 2 L/min per nasal cannula. He has normal saline at 10 mL/h. He remains on DuoNeb inhalations, antibiotics in the form of Unasyn. Repeat ultrasound of the chest revealed very minimal bilateral pleural effusions with an 1.8 cm pocket on the right and a 1.6 cm pocket on the left. No plans for thoracentesis. Xarelto will be resumed. White count 14.6. Hemoglobin 11.7. Platelets 412. Sodium 148. Potassium 3.4. Bicarb 24. BUN 29. Creatinine 0.75. Glucose 194. The patient is seen today January 03, 2025 in follow-up on the regular medical floor. He is currently resting in bed. He is arousable. He is disoriented to place and time. He is maintaining good O2 saturations in the 90s on 3 L nasal cannula r. He has been afebrile. Hemodynamically stable. Potassium 3.7. Bicarb 24. BUN 19. Creatinine 0.63. Glucose 178. Calcium 8.6. He remains on DuoNeb inhalations. Anticoagulated with Xarelto. Remains on Unasyn. Pleural fluid cultures revealed no growth. Cytology was negative for malignancy. Most recent ultrasound of the chest revealed very minimal pleural effusions with 1.8 cm on the right and 1.6 cm on the left. No further plans for thoracentesis on this admission. The patient is seen today January 04, 2025 in follow-up on the regular medical floor. He is awake. Confused. Maintaining O2 saturations in the 90s on 3 L/min per nasal cannula. Pleural fluid cultures revealed no growth. Cytology was negative for malignancy. Sodium 142. Glucose 213. Remains on D5W at 50 mL/h. Anticoagulated with Xarelto. Objective - Vital Signs Vital signs: Vital Signs Temp 99.0 F 01/04/25 06:57 Pulse 96 01/04/25 12:48 Resp 16 01/04/25 10:30 BP 134/68 01/04/25 06:57 Pulse Ox 90 L 01/04/25 08:55 FiO2 60 12/26/24 07:32 Intake & Output 01/03/25 01/04/25 01/04/25 18:59 06:59 18:59 Output Total 100 300 Balance -100 -300 Weight 70 kg 82 kg Output: Urine 100 300 Other: Voiding Method External Catheter External Catheter - Exam GENERAL EXAM: Alert, confused, frail 79-year-old male, resting in bed, on 3 L nasal cannula, in no apparent distress. HEAD: Normocephalic. EYES: Normal reaction of pupils, equal size. NOSE: Clear with pink turbinates. THROAT: No erythema or exudates. NECK: No masses, no JVD. CHEST: No chest wall deformity. LUNGS: Equal air entry with faint bibasilar crackles. CVS: S1 and S2 normal with no audible murmur, regular rhythm. ABDOMEN: No hepatosplenomegaly, normal bowel sounds, no guarding or rigidity. SPINE: No scoliosis or deformity SKIN: No rashes CENTRAL NERVOUS SYSTEM: Left-sided weakness, tone is normal in all 4 extremities. EXTREMITIES: There is no peripheral edema. No clubbing, no cyanosis. Peripheral pulses are intact. - Labs CBC & Chem 7: 01/02/25 07:47 01/04/25 11:12 Labs: Abnormal Lab Results - Last 24 Hours (Table) 01/03/25 01/03/25 01/04/25 Range/Units 16:55 20:39 06:12 POC Glucose (mg/dL) 215 H 222 H 215 H (70-110) mg/dL 01/04/25 Range/Units 11:46 POC Glucose (mg/dL) 213 H (70-110) mg/dL Assessment and Plan Assessment: Acute hypoxic respiratory failure secondary to bilateral pleural effusions, suspect acute systolic congestive heart failure. Right-sided thoracentesis performed December 26, 2024 with 600 mL of cloudy thick yellow fluid returned. Fluid is exudate. Cultures revealed no growth and cytology for malignancy. A second right sided thoracentesis performed December 31, 2024 with 750 mL of fluid returned. Not sent for analysis. Follow-up ultrasound revealed pleural effusions less than 2 cm bilaterally Possible underlying bacterial pneumonia. Procalcitonin 20.3. Continued on Unasyn Moderate aortic stenosis Mild mitral regurgitation History of coronary artery disease and previous stent placement History of sick sinus syndrome Chronic atrial fibrillation maintained on Xarelto Plan: The patient was seen and evaluated Labs and medications reviewed Continue bronchodilators Titrate down the FiO2 as tolerated The patient remains unable to make his own decisions His overall prognosis remains quite poor Plan is for [facility] I have personally seen and examined the patient, performed the documentation and the assessment and plan as written. Number of minutes spent on the visit: 10 Dictation was produced using [employer] software. Please excuse any grammatical, word or spelling errors.
--- NOTE | 2025-01-04 14:12 | P.PN ---
Subjective Progress Note Date: 01/04/25 Principal diagnosis: Reason for follow-up is elevated procalcitonin/pneumonia Patient is a 79-year-old male with a past medical history significant for diabetes mellitus hypertension hyperlipidemia atrial fibrillation skin cancer presenting to the hospital for evaluation of increasing shortness of breath patient did have bilateral effusion status post thoracocentesis on the right size did have elevated Pro-Flex concerning for pneumonia prompting this consultation. Patient did have initial thoracocentesis on the right side with removal of 600 cc of fluid, patient did have repeat thoracocentesis on the right side on 12/31/2024 with removal of 750 cc of fluid. On today's evaluation that is 01/04/2025,the patient remains to be afebrile, patient is on 3 L, oxygen and breathing comfortably the patient is sleepy lethargic did not provide any history no significant changes reported. No new lab has been obtained today continues to be negative Objective - Vital Signs Vital signs: Vital Signs Temp 99.0 F 01/04/25 06:57 Pulse 96 01/04/25 12:48 Resp 16 01/04/25 10:30 BP 134/68 01/04/25 06:57 Pulse Ox 90 L 01/04/25 08:55 FiO2 60 12/26/24 07:32 Intake & Output 01/03/25 01/04/25 01/04/25 18:59 06:59 18:59 Output Total 100 300 Balance -100 -300 Weight 70 kg 82 kg Output: Urine 100 300 Other: Voiding Method External Catheter External Catheter - Exam GENERAL DESCRIPTION: An elderly male lying in bed in no distress RESPIRATORY SYSTEM: Unlabored breathing , decreased breath sounds at bases HEART: S1 S2 regular rate and rhythm , ABDOMEN: Soft , no tenderness EXTREMITIES: No edema feet - Labs CBC & Chem 7: 01/02/25 07:47 01/04/25 11:12 Labs: Abnormal Lab Results - Last 24 Hours (Table) 01/03/25 01/03/25 01/04/25 Range/Units 16:55 20:39 06:12 POC Glucose (mg/dL) 215 H 222 H 215 H (70-110) mg/dL 01/04/25 Range/Units 11:46 POC Glucose (mg/dL) 213 H (70-110) mg/dL Assessment and Plan (1) Pleural effusion Status: Acute Code(s): J90 - PLEURAL EFFUSION, NOT ELSEWHERE CLASSIFIED SNOMED Code(s): 05847404 (2) Pneumonia Status: Acute Code(s): J18.9 - PNEUMONIA, UNSPECIFIED ORGANISM SNOMED Code(s): 574598538 Plan: 1patient presented to hospital with increasing shortness of breath cough and this patient did have evidence of bilateral effusion patient also have elevated procalcitonin concerning for possible pneumonia with a parapneumonic effusion. 2patient is status post thoracocentesis and the fluid has been sent for culture which are negative so far 3the patient remains to be afebrile no CBC was done today, cultures negative for resistant pathogen on Unasyn however plan is for possible hospice which may be appropriate in that case antibiotics can be safely discontinued Dictation was produced using [employer] dictation software. please excuse any gr ammatical, word or spelling errors. Time with Patient: Less than 30
== END 2025-01-04 13:36 | disposition hospice, home (50) | DRG 871 ==
LOC: EC 11:08 → 2SICU 13:25 → 3SCARD 16:45 → 4SSUR 01-02 19:53
PROVIDERS: ADMIT Internal Medicine; ATTEND Internal Medicine
PROC: 5A09357 Assistance with Respiratory Ventilation, Less than 24 Consecutive Hours, Continuous Positive Airway Pressure (ICD-10-PCS; principal; 2024-12-25)
PROC: 0W993ZZ Drainage of Right Pleural Cavity, Percutaneous Approach (ICD-10-PCS; 2024-12-26)
PROC: 0W993ZX Drainage of Right Pleural Cavity, Percutaneous Approach, Diagnostic (ICD-10-PCS; 2024-12-31)
DX: A41.9 Sepsis, unspecified organism (principal); I21.A1 Myocardial infarction type 2; J18.9 Pneumonia, unspecified organism; I50.21 Acute systolic (congestive) heart failure; J96.01 Acute respiratory failure with hypoxia; E87.20 Acidosis, unspecified; J91.8 Pleural effusion in other conditions classified elsewhere; I27.22 Pulmonary hypertension due to left heart disease; C61 Malignant neoplasm of prostate; I11.0 Hypertensive heart disease with heart failure; E11.9 Type 2 diabetes mellitus without complications; F03.90 Unspecified dementia, unspecified severity, without behavioral disturbance, psychotic disturbance, mood disturbance, and anxiety; I08.0 Rheumatic disorders of both mitral and aortic valves; E87.0 Hyperosmolality and hypernatremia; N17.9 Acute kidney failure, unspecified; I49.5 Sick sinus syndrome; I48.0 Paroxysmal atrial fibrillation; Z79.4 Long term (current) use of insulin; E78.5 Hyperlipidemia, unspecified; R53.81 Other malaise; E83.42 Hypomagnesemia; I25.10 Atherosclerotic heart disease of native coronary artery without angina pectoris; Z95.5 Presence of coronary angioplasty implant and graft; Z95.0 Presence of cardiac pacemaker; Z79.01 Long term (current) use of anticoagulants; Z79.84 Long term (current) use of oral hypoglycemic drugs; Z79.899 Other long term (current) drug therapy; Z87.891 Personal history of nicotine dependence; Z85.828 Personal history of other malignant neoplasm of skin
CPT/HCPCS: 36415; 36600; 71045; 71250; 76604; 80048; 80053; 80202; 82805; 82945; 83036; 83605; 83615; 83735; 83880; 84145; 84155; 84157; 84295; 84484; 85025; 85610; 85652; 85730; 86140; 87070; 87102; 87116; 87205; 87206; 87496; 87498; 87502; 87529; 87634; 87635; 87798; 88108; 88305; 89050; 93005; 93306; 94640; 94660; 94760; 96361; 96365; 96374; 99291